=== PATIENT | female | born 1935 | race Caucasian/White ===

== ENCOUNTER 2019-05-16 09:21 | Inpatient (IN) ==
[2019-05-16] MEDS ORDERED: ONDANSETRON INJ 2 MG/ML 2 ML VIAL IV STA (10:03)
[2019-05-16] MEDS ORDERED: HYDROmorphone INJ 0.5 MG/0.5 ML SYR IV STA (10:04)
[2019-05-16] MEDS ORDERED: methylPREDNISolone 125 MG/2 ML VIAL IV STA (10:05)
[2019-05-16] MEDS ORDERED: MoRPHine SULFATE 2 MG/ML CARP IV STA ×2 (10:21→12:47)
[2019-05-16 10:29] LABS: Basophils # (auto) 0.01 K/uL (0-0.2); Basophils % (auto) 0.1 %; Hematocrit (blood only) 47.1 % (37-47); Hemoglobin 15.8 g/dL (12.0-16.0); Immature Granulocytes # (auto) 0.07 K/uL (0.00-0.02); Immature Granulocytes % (auto) 0.5 %; Lymphocytes # (auto) 2.28 K/uL (1.2-3.4); Lymphocytes % (auto) 17.4 %; Mean Corpuscular Hemoglobin 30.3 pg (25-34); Mean Corpuscular Hgb Conc 33.5 g/dL (32-36); Mean Corpuscular Volume 90.2 fL (80-100); Mean Platelet Volume 8.5 fL (7.4-10.4); Monocytes # (auto) 0.73 K/uL (0.11-0.59); Monocytes % (auto) 5.6 %; Neutrophils # (auto) 10.05 K/uL (1.4-6.5); Neutrophils % (auto) 76.4 %; Platelet Count 179 K/uL (130-400); RDW Coefficient of Variation 15.1 % (11.5-14.5); RDW Standard Deviation 50.3 fL (36.4-46.3); Red Blood Count 5.22 M/uL (4.2-5.4); White Blood Count 13.14 K/uL (4.8-10.8)
[2019-05-16 10:48] LABS: Albumin Level 4.3 gm/dl (3.4-5.0); Calcium 9.3 mg/dl (8.5-10.1); Creatinine Clr Calc Pharmacy 45.2 ml/min; Est GFR (African American) 66.7; Est GFR (Non-African American) 57.5; Potassium 3.5 mmol/L (3.5-5.1)
[2019-05-16 10:51] LABS: Albumin Globulin Ratio 1.2 (0.9-2); Bilirubin,Total 0.8 mg/dl (0.2-1); Globulin 3.6 gm/dl (2.5-4.0); Total Protein 7.9 gm/dl (6.4-8.2)
--- NOTE | 2019-05-16 11:17 | XRay Report ---
XR lumbar spine min 4V routine HISTORY: 83 years-old Female Right lumbar radiculopathy acute low back pain without reported trauma COMPARISON: Fluoroscopic images of the lumbar spine 11/23/2014 TECHNIQUE: 5 views of the lumbar spine FINDINGS: Cholecystectomy. Mild fecal retention. Demineralized appearance of the bones. 5 nonrib-bearing lumbar type vertebral segments are present. Grade 1 anterolisthesis L4 on L5, likely secondary to long-austyn ding facet arthrosis. Moderate multilevel disc space narrowing and spondylitic spurring with severe m ultilevel facet arthrosis. No acute fracture identified. Vertebral body heights appear well-maintaine d. Calcified plaque of the abdominal aorta. Severe left and moderate right hip osteoarthritis. IMPRESSION: 1. Degenerative changes as above without acute fracture. 2. Grade 1 anterolisthesis L4 on L5, likely secondary to long-standing facet arthrosis. ACT 112: Negative or not required by law. The above report was generated using voice recognition software. It may contain grammatical, syntax o r spelling errors. Electronically signed by: Parvez Clemente M.D. 05/16/2019 11:16 AM
[2019-05-16] MEDS ORDERED: DEXAMETHASONE SOD INJ 4 MG/ML VIAL IV ONE (13:58)
--- NOTE | 2019-05-16 13:59 | History & Physical Report ---
Date of Service May 16, 2019 Assessment & Plan (1) Right lumbar radiculopathy: -Admit to [facility] -Patient presenting with intractable right lumbar back pain with radiation into the right hip/leg -History of ongoing, chronic back pain for the past several years. Had injection in 2014 that caused temporary lower extremity paralysis and urinary incontinence. Has been managed with courses of prednisone since that time. -Was placed on prednisone on 05/04 without any improvement in pain -Lumbar spine MRI 02/2019: Grade 1 anterolisthesis at the L4-5 level due to facet degeneration with disc space narrowing. At this level there is lateral recess narrowing and foraminal narrowing on the right. Disc protrusions are seen also at L3-4 and L2-3. -Received Solu-Medrol 125 mg IV in the ED, further steroids as per spine orthopedics -Repeat lumbar spine MRI -PT/OT, pain control -Spine Ortho consult (2) Hypertension: -BP controlled, continue losartan (3) History of TIA (transient ischemic attack): -Remote history of TIA -will hold Plavix in preparation for any possible invasive procedure -Continue statin (4) GERD (gastroesophageal reflux disease): -Continue PPI (5) DVT prophylaxis: -SQ Lovenox History of Present Illness Chief Complaint: Intractable back pain Primary Care Provider: Sancho Webster MD 83-year-old female who presents the ED for evaluation of intractable back pain. Patient reports ongoing chronic back pain for the past several years. Have been managed with injections in the past, most recently being in 2014 however postprocedure, patient had complication of lower extremity paralysis and incontinence that did eventually resolve. Since then, patient's pain has been managed with prednisone tapers. She was on a course of prednisone in February and reports improvement of the pain. About 2 weeks ago, patient developed increasing right-sided low back pain with radiation into the right hip down to the leg. She was placed on prednisone on 05/04 and has had no improvement. Patient reports difficulty walking. She regards the pain as a burning sensation. Denies any loss of bowel or bladder function. No fevers or chills. Patient denies chest pain shortness of breath. No lightheadedness, dizziness, diaphoresis, syncopal events. She denies any urinary symptoms. In the ED, lumbar spine x-ray shows degenerative changes without acute fracture and grade 1 anterolisthesis L4 on L5, likely secondary to long-standing facet arthrosis. Patient was given IV Dilaudid, IV Solu-Medrol, 2 doses of IV morphine, IV Zofran. Allergies Allergy/AdvReac Type Severity Reaction Status Date / Time aspirin Allergy Unknown HIVES Verified 05/16/19 11:37 Cipro Allergy Unknown NUMBNESS Verified 11/23/14 10:01 INTENSIFIED IN BOTH FEET ciprofloxacin Allergy Unknown NUMBNESS Verified 05/16/19 11:37 INTENSIFIED IN BOTH FEET fentanyl Allergy Unknown SEE PEOPLE Verified 05/16/19 11:37 AND HEAR VOICES acetaminophen [From Percocet] AdvReac Severe Nausea Unverified 05/16/19 11:37 codeine AdvReac Severe Nausea Unverified 05/16/19 11:37 hydromorphone [From Dilaudid] AdvReac Severe Nausea Unverified 05/16/19 11:37 oxycodone [From Percocet] AdvReac Severe Nausea Unverified 05/16/19 11:37 Ethanol Allergy Unknown SEE PEOPLE Uncoded 05/16/19 11:37 AND HEAR VOICES MONOSTAT Allergy Unknown CRAMPS Uncoded 05/16/19 11:37 PROSTIGIMIN Allergy Unknown TONGUE Uncoded 05/16/19 11:37 SWELLS SOY BEAVER Allergy Unknown MESSED UP Uncoded 05/16/19 11:37 HEAD Home Medications Home Medications Medication Instructions Recorded Confirmed Type amitriptyline 25 mg PO HS 05/16/19 05/16/19 History atorvastatin 10 mg PO Q2D@2100 05/16/19 05/16/19 History clopidogrel 75 mg PO QAM 05/16/19 05/16/19 History fluticasone propionate 2 spray INTRANASAL HS 05/16/19 05/16/19 History gabapentin 200 mg PO QAM 05/16/19 05/16/19 History gabapentin 300 mg PO HS 05/16/19 05/16/19 History hydrochlorothiazide 12.5 mg PO QAM 05/16/19 05/16/19 History levothyroxine 137 mcg PO QAM 05/16/19 05/16/19 History lorazepam 0.5 mg PO DAILY PRN 05/16/19 05/16/19 History losartan 50 mg PO QAM 05/16/19 05/16/19 History pantoprazole 20 mg PO QAM 05/16/19 05/16/19 History prednisone 10 mg PO UD 05/16/19 05/16/19 History Past Med/Surg History Medical History Chronic back pain GERD (gastroesophageal reflux disease) History of ankle fracture History of [place] thyroiditis History of TIA (transient ischemic attack) Hyperlipidemia Hypertension Left bundle branch block Osteoarthritis Peripheral neuropathy Postoperative hypothyroidism Rectocele Surgical History H/O partial mastectomy H/O thyroidectomy H/O tubal ligation History of appendectomy History of bilateral knee replacement History of carpal tunnel surgery History of cataract surgery History of cholecystectomy History of total abdominal hysterectomy Family History Sister Breast cancer Mother Heart disease Social History Preferred Language: Greenlandic Communication Ability: Effective Spool Salvager Required: No Beliefs That Will Affect Care: None Current Living Situation: Spouse Other Information That Helps Us Care for You: No Feels Safe at Home: Yes Safety Concerns: Feels Safe At This Time Smoking Status: Never smoker Do You Dip or Chew Tobacco: No ; Second Hand Exposure: No ; Tobacco Cessation Education Requested by Patient: No Hx Alcohol Use: No Hx Substance Use: No Review of Systems Review of Systems: ROS per HPI, all other systems reviewed and negative Physical Exam Constitutional: WD/WN, vitals as above Eyes: PERRL, conjunctivae normal, anicteric sclerae ENMT: external ear and nose normal, oropharynx normal Respiratory: normal respiratory effort, lungs clear to auscultation Cardiovascular: Rate/Rhythm: regular rate and regular rhythm Vessels: normal peripheral pulses Extremities: no edema Gastrointestinal (Abdomen): normal bowel sounds, soft, nontender, no hepatosplenomegaly Musculoskeletal: no cyanosis or clubbing, extremities motor strength 5/5 Right-sided lumbar back and right hip pain with right leg abduction Skin: no rashes, warm and dry Neurologic: PERRL, EOMI, accommodation nl, no face palsy, no dysarthria Psychiatric: A+Ox3, euthymic affect Results & Data Vital Signs (Past 12 Hours) Vital Signs Temp Pulse Pulse Resp BP BP Pulse Ox 03/02/20 13:00 89 20 150/72 H 98 05/16/19 11:22 73 20 150/73 H 95 05/16/19 09:30 36.7 C 90 20 161/72 H 99 Laboratory Results Short CBC 05/16/19 Range/Units 10:14 WBC 13.14 H (4.8-10.8) K/uL Hgb 15.8 (12.0-16.0) g/dL Hct 47.1 H (37-47) % Plt Count 179 (130-400) K/uL BMP 05/16/19 10:14 Sodium 139 Potassium 3.5 Chloride 101 Carbon Dioxide 32 BUN 20 H Creatinine 0.91 Glucose 125 H Calcium 9.3 Liver Function 05/16/19 Range/Units 10:14 Total Bilirubin 0.8 (0.2-1) mg/dl AST 14 L (15-37) U/L ALT 23 (12-78) U/L Alkaline Phosphatase 88 (45-117) U/L Albumin 4.3 (3.4-5.0) gm/dl Diagnostic Findings LUMBAR SPINE X-RAY IMPRESSION: 1. Degenerative changes as above without acute fracture. 2. Grade 1 anterolisthesis L4 on L5, likely secondary to long-standing facet arthrosis. Code Status & VTE Plan Code Status Patient is a full code as per my discussion with her. VTE Prophylaxis Plan VTE Prophylaxis will be ordered: Yes Supervising Physician Co-Signing Physician Notes Attending addendum; Patient is seen and examined in medical floor She has been complaining of severe low back pain on the right side and the pain goes down to right leg Initial improvement with a course of steroid in February but this time it has not been helping Pain is worse with every movement Denies any problem with bowel and/or bladder and denies any significant weakness involving the right lower extremity On examination Lying in bed comfortably Hemodynamically stable Chest-clear to auscultate bilaterally Heart-S1-S2, regular Abdomen-benign Extremities-no edema No significant localized tenderness noted on examination of the lower spine pecan gatherer-minimal sensory impairment involving the right lower extremity in the lower leg No significant decrease in power Admission labs and imaging studies reviewed Received 1 dose of Solu-Medrol in the emergency room We will get repeat MRI of the lumbar spine Back surgery evaluation in the hospital Agree with assessment and plan as outlined above by Carmen Jarrett
--- NOTE | 2019-05-16 14:14 | Emergency Department Note ---
Entered by Lisa Benjamin acting as a scribe for Mariia Mack MD History of Present Illness General Chief complaint: Hip Pain Stated complaint: HIP PAIN DOWN TO ANKLE Source: patient History of Present Illness Onset (ago): week(s) 1 Location: back Radiation: other (right hip, right leg) Severity: severe and similar to prior episodes Pain Consistency: + other (worsening) Maximum Pain Intensity: 5 Quality: + other (back pain) Relieved By: + medication (Relieved by Prednisone. Not relieved by Tylenol.) Exacerbated By: + movement Associated symptoms: + other (Positive back pain, right hip and right leg pain. Negative truama, falls, urinary incontinence.) The patient is an 83 year old female presenting to the Emergency Department complaining of worsening back pain starting 1 week ago. The patient reports that she has severe lower back pain that is radiating down to her right hip and right leg. She states that standing up and walking around worsens her pain. She explains that she has experienced these symptoms before as she follows with [facility]. She notes that she has horrible arthritis in her joints. She adds that she normally received Prednisone when she has this pain and that it improves her pain. The patient reports that she has had pain shots in her back for her chronic back pain before that made her incontinent so she hasnt had them since. She states that she had an MRI of her back on 03/04/19 at [facility]. She explains that she recently finished a round of prednisone in the end of April and has been taking Tylenol ever since. She notes that Tylenol is not improving her back pain. 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 The patient denies recent trauma, falls, urinary incontinence, recent heavy lifting and history of hip surgery. Home Medications Home Medications Medication Instructions Recorded Confirmed Type amitriptyline 25 mg PO HS 05/16/19 05/16/19 History atorvastatin 10 mg PO Q2D@2100 05/16/19 05/16/19 History clopidogrel 75 mg PO QAM 05/16/19 05/16/19 History fluticasone propionate 2 spray INTRANASAL HS 05/16/19 05/16/19 History gabapentin 200 mg PO QAM 05/16/19 05/16/19 History gabapentin 300 mg PO HS 05/16/19 05/16/19 History hydrochlorothiazide 12.5 mg PO QAM 05/16/19 05/16/19 History levothyroxine 137 mcg PO QAM 05/16/19 05/16/19 History lorazepam 0.5 mg PO DAILY PRN 05/16/19 05/16/19 History losartan 50 mg PO QAM 05/16/19 05/16/19 History pantoprazole 20 mg PO QAM 05/16/19 05/16/19 History prednisone 10 mg PO UD 05/16/19 05/16/19 History Allergies Allergy/AdvReac Type Severity Reaction Status Date / Time aspirin Allergy Unknown HIVES Verified 05/16/19 11:37 Cipro Allergy Unknown NUMBNESS Verified 11/23/14 10:01 INTENSIFIED IN BOTH FEET ciprofloxacin Allergy Unknown NUMBNESS Verified 05/16/19 11:37 INTENSIFIED IN BOTH FEET fentanyl Allergy Unknown SEE PEOPLE Verified 05/16/19 11:37 AND HEAR VOICES codeine AdvReac Severe Nausea Unverified 05/16/19 11:37 hydromorphone [From Dilaudid] AdvReac Severe Nausea Unverified 05/16/19 11:37 oxycodone [From Percocet] AdvReac Severe Nausea Unverified 05/16/19 11:37 Ethanol Allergy Unknown SEE PEOPLE Uncoded 05/16/19 11:37 AND HEAR VOICES MONOSTAT Allergy Unknown CRAMPS Uncoded 05/16/19 11:37 PROSTIGIMIN Allergy Unknown TONGUE Uncoded 05/16/19 11:37 SWELLS Past Med/Surg History Medical History (Updated 05/18/19 @ 22:24 by Alfred Heck MD) Chronic back pain GERD (gastroesophageal reflux disease) History of ankle fracture History of [place] thyroiditis History of TIA (transient ischemic attack) Hyperlipidemia Hypertension Hypothyroidism Left bundle branch block Osteoarthritis Peripheral neuropathy Postoperative hypothyroidism Rectocele Surgical History H/O partial mastectomy H/O thyroidectomy H/O tubal ligation History of appendectomy History of bilateral knee replacement History of carpal tunnel surgery History of cataract surgery History of cholecystectomy History of total abdominal hysterectomy Family History Sister Breast cancer Mother Heart disease Social History Preferred Language: Lao Communication Ability: Effective 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 and A total of 10 systems reviewed and were otherwise negative Physical Exam Vital Signs Vital Signs - 24 hr 05/16/19 09:30 05/16/19 11:22 Temperature 36.7 C Temperature Source Oral Pulse Rate 90 Pulse Rate [Finger] 73 Pulse Rhythm Regular Pulse Rhythm [Finger] Regular Pulse Strength Normal Pulse Strength [Finger] Normal Respiratory Rate 20 20 Respiratory Effort / Characteristics Non-Labored Spontaneous Non-Labored Spontaneous Respiratory Depth Normal Normal Respiratory Pattern Regular Blood Pressure 161/72 H Blood Pressure [Left Arm] 150/73 H Blood Pressure Mean 101 Blood Pressure Mean [Left Arm] 98 Blood Pressure Position Sitting Blood Pressure Position [Left Arm] Lying Pulse Oximetry 99 95 Oxygen Delivery Method Room Air Room Air Sepsis Recent Fever Within 48 Hours No Sepsis Action Taken by Nursing No Action Required Vital signs reviewed. General: Well-appearing 83 year old female, in no significant distress. HEENT: No scleral icterus, PERRLA, neck supple. Atraumatic. Cardiovascular: Regular rate and rhythm, no extra sounds. Pulmonary: Clear to auscultation bilaterally, normal work of breathing. Abdomen: Soft, nontender, nondistended, positive bowel sounds. Musculoskeletal: Negative straight leg raise bilaterally. Significant pain with rotation and lifting legs to bed. Pain increases with weight bearing. Atraumatic, no peripheral edema. Neurologic: Patient awake alert and oriented x 3, full strength bilateral lower extremities. Skin: Warm, dry, no rash Course Course 0958: The patient was evaluated in room B5, and a complete history and physical examination were performed. 1113: I reevaluated the patient at this time. 1236: I discussed the patient's case with Carmen TRACY. [facility]. 1241: I updated the patient at this time. Administered Medications Acetaminophen (Tylenol) 650 mg PO Q6H MEHUL Stop: 06/15/19 13:57 Last Admin: 05/19/19 13:45 Dose: 650 mg Documented by: [id number] Admin: 05/19/19 09:05 Dose: 650 mg Documented by: [id number] Admin: 05/19/19 02:30 Dose: 650 mg Documented by: [id number] Admin: 05/18/19 21:26 Dose: 650 mg Documented by: [id number] Admin: 05/18/19 13:16 Dose: Not Given Documented by: [id number] Admin: 05/18/19 10:04 Dose: 650 mg Documented by: [id number] Cosigned by: [id number] Admin: 05/18/19 02:25 Dose: 650 mg Documented by: [id number] Admin: 05/17/19 20:20 Dose: 650 mg Documented by: [id number] Admin: 05/17/19 14:35 Dose: 650 mg Documented by: [id number] Admin: 05/17/19 09:17 Dose: 650 mg Documented by: [id number] Admin: 05/17/19 03:33 Dose: 650 mg Documented by: [id number] Admin: 05/16/19 21:21 Dose: 650 mg Documented by: [id number] Admin: 05/16/19 14:21 Dose: 650 mg Documented by: [id number] Amitriptyline HCl (Elavil) 25 mg PO HS MEHUL Stop: 06/15/19 20:59 Last Admin: 05/18/19 21:23 Dose: 25 mg Documented by: [id number] Admin: 05/17/19 20:20 Dose: 25 mg Documented by: [id number] Admin: 05/16/19 20:47 Dose: 25 mg Documented by: [id number] Atorvastatin Calcium (Lipitor) 10 mg PO Q2D@2100 MEHUL Stop: 06/15/19 20:59 Last Admin: 05/18/19 21:22 Dose: 10 mg Documented by: [id number] Admin: 05/16/19 20:48 Dose: 10 mg Documented by: [id number] Docusate Sodium (Colace) 100 mg PO BID MEHUL Stop: 06/15/19 20:59 Last Admin: 05/19/19 09:06 Dose: 100 mg Documented by: [id number] Admin: 05/18/19 21:22 Dose: 100 mg Documented by: [id number] Admin: 05/18/19 10:09 Dose: 100 mg Documented by: [id number] Cosigned by: [id number] Admin: 05/17/19 20:20 Dose: 100 mg Documented by: [id number] Admin: 05/17/19 09:13 Dose: 100 mg Documented by: [id number] Admin: 05/16/19 20:48 Dose: 100 mg Documented by: [id number] Gabapentin (Neurontin) 300 mg PO HS MEHUL Stop: 06/15/19 20:59 Last Admin: 05/18/19 21:23 Dose: 300 mg Documented by: [id number] Admin: 05/17/19 20:20 Dose: 300 mg Documented by: [id number] Admin: 05/16/19 20:47 Dose: 300 mg Documented by: [id number] Gabap[facility] (Neurontin) [facility] [place] Stop: 06/16/19 08:59 Last Admin: 05/19/19 09:06 Dose: 200 mg Documented by: [id number] Admin: 05/18/19 10:04 Dose: 200 mg Documented by: [id number] Cosigned by: [id number] Admin: 05/17/19 09:13 Dose: 200 mg Documented by: [id number] Gadobutrol (Gadavist 65ml) 7 ml IV ONCE PRN PRN Reason: Interaction Checking Stop: 05/20/19 17:08 Last Admin: 05/16/19 17:10 Dose: 7 ml Documented by: [id number] Hydrochlorothiazide (Hctz) 12.5 mg [facility] [place] Stop: 06/16/19 08:59 Last Admin: 05/19/19 11:22 Dose: 12.5 mg Documented by: [id number] Admin: 05/17/19 09:12 Dose: 12.5 mg Documented by: [id number] Levothyroxine Sodium (Levothyroxine Sodium) 137 mcg PO DAILYBB [facility] Stop: 06/16/19 06:29 Last Admin: 05/19/19 06:02 Dose: 137 mcg Documented by: [id number] Admin: 05/18/19 06:10 Dose: 137 mcg Documented by: [id number] Admin: 05/17/19 06:09 Dose: 137 mcg Documented by: [id number] Lorazepam (Ativan) 0.5 mg PO HS PRN PRN Reason: Sleep Stop: 06/16/19 20:30 Last Admin: 05/17/19 21:53 Dose: 0.5 mg Documented by: [id number] Losartan Potassium (Cozaar) 50 mg PO QAM [facility] Stop: 06/16/19 08:59 Last Admin: 05/19/19 09:06 Dose: 50 mg Documented by: [id number] Admin: 05/18/19 10:08 Dose: 50 mg Documented by: [id number] Cosigned by: [id number] Admin: 05/17/19 09:12 Dose: 50 mg Documented by: [id number] Ondansetron HCl (Zofran) 4 mg IV Q6H PRN PRN Reason: Nausea Stop: 06/17/19 08:07 Last Admin: 05/18/19 22:27 Dose: 4 mg Documented by: [id number] Admin: 05/18/19 08:26 Dose: 4 mg Documented by: [id number] Cosigned by: [id number] Oxycodone HCl (Roxicodone Immediate Rel) 5 mg PO Q6H PRN PRN Reason: Pain Stop: 05/30/19 13:57 Last Admin: 05/18/19 02:25 Dose: 5 mg Documented by: [id number] Admin: 05/17/19 17:54 Dose: 5 mg Documented by: [id number] Admin: 05/17/19 11:48 Dose: 5 mg Documented by: [id number] Pantoprazole Sodium (Protonix) 40 mg PO [facility] Stop: 06/16/19 08:59 Last Admin: 05/19/19 09:06 Dose: 40 mg Documented by: [id number] Admin: 05/18/19 10:08 Dose: 40 mg Documented by: [id number] Cosigned by: [id number] Admin: 05/17/19 09:13 Dose: 40 mg Documented by: [id number] Polyethylene Glycol (Miralax Powder Packet) 17 gm PO DAILY MEHUL Stop: 06/15/19 14:14 Last Admin: 05/19/19 09:02 Dose: Not Given Documented by: [id number] Admin: 05/18/19 10:07 Dose: Not Given Documented by: [id number] Admin: 05/17/19 09:14 Dose: 8 gm Documented by: [id number] Admin: 05/16/19 14:21 Dose: 17 gm Documented by: [id number] Senna/Docusate Sodium (Senokot S) 2 tab PO HS [facility] Stop: 06/17/19 20:59 Last Admin: 05/18/19 21:23 Dose: 2 tab Documented by: [id number] Tramadol HCl (Ultram) 50 - 100 mg PO Q4H PRN PRN Reason: Moderate-Severe Pain & Pre PT Stop: 06/17/19 19:36 Last Admin: 05/19/19 12:02 Dose: 50 mg Documented by: [id number] Discontinued Medications Bacitracin (Bacitracin) Confirm Administered Dose 50,000 units .ROUTE .STK-MED ONE Stop: 05/18/19 15:01 Last Admin: 05/18/19 17:02 Dose: 50,000 units Documented by: [id number] Bupivacaine HCl (Marcaine 0.5% Mpf) Confirm Administered Dose 30 ml .ROUTE .STK- MED ONE Stop: 05/18/19 15:01 Last Admin: 05/18/19 16:21 Dose: 20 ml Documented by: [id number] Dexamethasone (Decadron) 4 mg IV ONE ONE Stop: 05/16/19 13:59 Last Admin: 05/16/19 14:25 Dose: Not Given Documented by: [id number] Enoxaparin Sodium (Lovenox) 40 mg SQ Q24H MEHUL Stop: 06/15/19 14:59 Last Admin: 05/17/19 14:51 Dose: Not Given Documented by: [id number] Admin: 05/16/19 15:37 Dose: Not Given Documented by: [id number] Epinephrine HCl (Epinephrine) Confirm Administered Dose 1 mg .ROUTE .STK-MED ONE Stop: 05/18/19 15:00 Last Admin: 05/18/19 16:21 Dose: 0.15 mg Documented by: [id number] Heparin Sodium (Porcine) (Heparin Sodium (Porcine)) 5,000 units SQ ONE ONE Stop: 05/17/19 22:01 Last Admin: 05/17/19 21:53 Dose: 5,000 units Documented by: [id number] Cosigned by: [id number] Hydromorphone HCl (Dilaudid) 0.25 mg IV NOW STA Stop: 05/16/19 10:05 Last Admin: 05/16/19 10:42 Dose: Not Given Documented by: [id number] Cefazolin Sodium (Ancef 2000mg) 2,000 mg in 15 mls @ 3.75 mls/min IV PREOP ONE Stop: 05/18/19 15:57 Last Admin: 05/18/19 15:50 Dose: 3.75 mls/min Documented by: [id number] Sodium Chloride (Nss 1000ml) 1,000 mls @ 100 mls/hr IV .Q10H MEHUL Stop: 06/17/19 19:36 Last Infusion: 05/19/19 06:11 Dose: 0 mls/hr Documented by: [id number] Admin: 05/19/19 06:03 Dose: Not Given Documented by: [id number] Admin: 05/18/19 21:26 Dose: 100 mls/hr Documented by: [id number] Cefazolin Sodium (Ancef 2000mg) 2,000 mg in 15 mls @ 3.75 mls/min IV Q8H MEHUL; Protocol Stop: 05/19/19 08:03 Last Admin: 05/19/19 09:08 Dose: 3.75 mls/min Documented by: [id number] Admin: 05/19/19 00:33 Dose: 3.75 mls/min Documented by: [id number] Labetalol HCl (Normodyne) 5 mg IV Q5M PRN PRN Reason: PACU Use-SBP>160 or DBP>100 Stop: 05/18/19 21:04 Last Admin: 05/18/19 18:50 Dose: 5 mg Documented by: [id number] Cosigned by: [id number] Lorazepam (Ativan) 0.25 mg PO NOW STA Stop: 05/17/19 20:13 Last Admin: 05/17/19 21:09 Dose: Not Given Documented by: [id number] Methylprednisolone (Solumedrol) 125 mg IV NOW STA Stop: 05/16/19 10:06 Last Admin: 05/16/19 10:34 Dose: 125 mg Documented by: [id number] Miscellaneous (Floseal Hemostatic Matrix 10ml) 10 ml TOP ONCE ONE Stop: 05/18/19 17:01 Last Admin: 05/18/19 17:37 Dose: 5 ml Documented by: [id number] Morphine Sulfate (Morphine Sulfate) 2 mg IV NOW STA Stop: 05/16/19 10:22 Last Admin: 05/16/19 10:34 Dose: 2 mg Documented by: [id number] Morphine Sulfate (Morphine Sulfate) 2 mg IV NOW STA Stop: 05/16/19 12:48 Last Admin: 05/16/19 13:27 Dose: 2 mg Documented by: [id number] Morphine Sulfate (Morphine Sulfate) 4 mg IV Q4H PRN PRN Reason: severe pain Stop: 05/30/19 13:57 Last Admin: 05/18/19 06:10 Dose: 4 mg Documented by: [id number] Admin: 05/17/19 23:08 Dose: 4 mg Documented by: [id number] Admin: 05/16/19 20:48 Dose: 4 mg Documented by: [id number] Ondansetron HCl (Zofran) 4 mg IV NOW STA Stop: 05/16/19 10:04 Last Admin: 05/16/19 10:34 Dose: 4 mg Documented by: [id number] Perflutren Lipid Microsphere (Definity) 2 ml IV ONCE ONE Stop: 05/18/19 07:46 Last Admin: 05/18/19 07:46 Dose: 2 ml Documented by: [id number] Polyethylene Glycol (Miralax Powder Packet) 17 gm PO Q6 MEHUL Stop: 06/18/19 05:59 Last Admin: 05/19/19 11:28 Dose: 17 gm Documented by: [id number] Admin: 05/19/19 06:03 Dose: 17 gm Documented by: [id number] Medical Decision Making Differential Diagnosis Etiologies such as musculoskeletal, disc herniation, fracture, aortic disease, metastatic disease, cord compression, discitis, infection, renal colic, gastrointestinal, acute exacerbation of chronic back pain, sciatica, cauda equina, as well as others were entertained. Medical Records Attestation: I reviewed the patient's medical records. Home Medications Current Medication List: was personally reviewed by me Laboratory Data Attestation: I reviewed the patient's lab results. Result diagrams: 05/19/19 07:26 05/19/19 07:26 Lab Results 05/16/19 05/16/19 Range/Units 10:14 10:14 WBC 13.14 H (4.8-10.8) K/uL RBC 5.22 (4.2-5.4) M/uL Hgb 15.8 (12.0-16.0) g/dL Hct 47.1 H (37-47) % MCV 90.2 (80-100) fL MCH 30.3 (25-34) pg MCHC 33.5 (32-36) g/dL RDW Std Deviation 50.3 H (36.4-46.3) fL RDW Coeff of Paulo 15.1 H (11.5-14.5) % Plt Count 179 (130-400) K/uL MPV 8.5 (7.4-10.4) fL Immature Gran % (Auto) 0.5 % Neut % (Auto) 76.4 % Lymph % (Auto) 17.4 % Chaves % (Auto) 5.6 % Eos % (Auto) 0.0 % Baso % (Auto) 0.1 % Immature Gran # (Auto) 0.07 H (0.00-0.02) K/uL Neut # (Auto) 10.05 H (1.4-6.5) K/uL Lymph # (Auto) 2.28 (1.2-3.4) K/uL Chaves # (Auto) 0.73 H (0.11-0.59) K/uL Eos # (Auto) 0.00 (0-0.5) K/uL Baso # (Auto) 0.01 (0-0.2) K/uL Sodium 139 (136-145) mmol/L Potassium 3.5 (3.5-5.1) mmol/L Chloride 101 (98-107) mmol/L Carbon Dioxide 32 (21-32) mmol/L Anion Gap 6.0 (3-11) BUN 20 H (7-18) mg/dl Creatinine 0.91 (0.6-1.2) mg/dl Est Cr Clr Drug Dosing 45.2 ml/min Est GFR ( Amer) 66.7 Est GFR (Non-Af Amer) 57.5 BUN/Creatinine Ratio 22.0 H (10-20) Glucose 125 H (70-99) mg/dl Calcium 9.3 (8.5-10.1) mg/dl Total Bilirubin 0.8 (0.2-1) mg/dl AST 14 L (15-37) U/L ALT 23 (12-78) U/L Alkaline Phosphatase 88 (45-117) U/L Total Protein 7.9 (6.4-8.2) gm/dl Albumin 4.3 (3.4-5.0) gm/dl Globulin 3.6 (2.5-4.0) gm/dl Albumin/Globulin Ratio 1.2 (0.9-2) Imaging Data Radiologist's Impression: Radiology results as stated below per my review and the radiologist's interpretation: XR lumbar spine min 4V routine HISTORY: 83 years-old Female Right lumbar radiculopathy acute low back pain without reported trauma COMPARISON: Fluoroscopic images of the lumbar spine 11/23/2014 TECHNIQUE: 5 views of the lumbar spine FINDINGS: Cholecystectomy. Mild fecal retention. Demineralized appearance of the bones. 5 nonrib-bearing lumbar type vertebral segments are present. Grade 1 anterolisthesis L4 on L5, likely secondary to long-standing facet arthrosis. Moderate multilevel disc space narrowing and spondylitic spurring with severe multilevel facet arthrosis. No acute fracture identified. Vertebral body heights appear well-maintained. Calcified plaque of the abdominal aorta. Severe left and moderate right hip osteoarthritis. IMPRESSION: 1. Degenerative changes as above without acute fracture. 2. Grade 1 anterolisthesis L4 on L5, likely secondary to long-standing facet arthrosis. ACT 112: Negative or not required by law. The above report was generated using voice recognition software. It may contain grammatical, syntax or spelling errors. Electronically signed by: Parvez Clemente M.D. 05/16/2019 11:16 AM Blood Pressure Blood Pressure Findings: Elevated blood pressure Blood Pressure Disposition: further management by hospitalist MDM Narrative This pt was evaluated and appeared to be in no distress. IV access was obtained and lab work was drawn. Pt was medicated with IV morphine and zofran, given IV solumedral. Pt is noted to have a leukocytosis likely r/t recent steroid therapy. XR were performed of lumbar spine and reveal degenerative changes and grade 1 anterolisthesis L4 on L5. Pt required additional morphine IV for pain control. She is unable to ambulate without significant assistance. Pt will be evaluated by the hospitalist service for further management. Pt and daughter were made aware of the plan and agreed. Impression & Plan Right lumbar radiculopathy, Intractable back pain Discharge Plan Visit Data *Final* Discharge Date/Time: 05/16/19 13:21 Chief Complaint: Hip Pain Stated Complaint: HIP PAIN DOWN TO ANKLE ED Provider: Mariia Mack Discharge Problem: Right lumbar radiculopathy, Intractable back pain Patient Disposition: Admitted As Inpatient Discharge Instructions Interventions: ED Discharge Assessment Last Done: 05/16/19 13:21 The scribe's documentation has been prepared under my direction and personally reviewed by me in its entirety. I confirm that the note above accurately reflects all work, treatment, procedures, and medical decision making performed by me.
[2019-05-16] MEDS: ACETAMINOPHEN 325 MG TAB PO SCH ×2 (14:21→21:21)
[2019-05-16] MEDS: POLYETHYLENE (MIRALAX) 17 GM PACK PO SCH (14:21)
[2019-05-16] MEDS: ENOXAPARIN INJ 40 MG/0.4 ML SYR SQ SCH (15:37)
[2019-05-16] MEDS ORDERED: GADOBUTROL 65ML VIAL IV PRN (17:09)
--- NOTE | 2019-05-16 17:44 | Magnetic Resonance Report ---
LUMBAR SPINE MRI WITH AND WITHOUT CONTRAST HISTORY: intractable back pain TECHNIQUE: Multiplanar multisequence MRI of the lumbar spine was performed both before and after the intravenous administration of contrast. COMPARISON: Lumbar spine radiograph 05/16/2019. FINDINGS: For the purpose of the report the L5-S1 disc space will be located on axial image 27 of 30. 4 mm of anterolisthesis of L4 on L5. No fractures within the lumbar spine. Moderate to severe facet d egenerative changes most pronounced at the L4-L5 level. Mild enhancement surrounding the L4-L5 and L5 facets is likely due to to the long-standing degenerative change. The conus terminates at the L1-2 d isc space level. There is moderate disc space narrowing at L2-L3 and L4-L5. There is mild disc space narrowing at L3-L4. No fractures within the lumbar spine. There is a 1.9 cm right renal cyst. L1-L2: No significant central canal or neural foraminal narrowing. L2-L3: Broad-based posterior disc bulge with ligamentum and facet hypertrophy resulting in moderate c entral canal and mild bilateral neural foraminal narrowing. L3-L4: Broad-based posterior disc bulge with a small focal central disc protrusion. In conjunction wi th ligamentum and facet hypertrophy this results in severe central canal and mild to moderate bilater al neural foraminal narrowing. L4-L5: Broad-based posterior disc bulge with ligamentum and facet hypertrophy resulting in moderate c entral canal and moderate left neural foraminal narrowing. There is severe right neural foraminal kevin rowing with compression of the exiting right L4 nerve root at this level. L5-S1: Small broad-based posterior disc bulge without significant central canal or neural foraminal n arrowing. IMPRESSION: 1. Multilevel lumbar spondylosis as described above most pronounced at the L2-L3 and L3-L4 levels. 2. Grade 1 anterolisthesis of L4 on L5. In conjunction with the broad-based posterior disc bulge this results in moderate left and severe right neural foraminal narrowing. There appears to be mild compr ession of the exiting right L4 nerve root at this level due to the neural foraminal narrowing. 3. Additional degenerative changes as described above. ACT 112: Negative or not required by law. Electronically signed by: Yared Sweet M.D. 05/16/2019 5:43 PM
[2019-05-16] MEDS: GABAPENTIN 300 MG CAP PO SCH (20:47)
[2019-05-16] MEDS: AMITRIPTYLINE HCL 25 MG TAB PO SCH (20:47)
[2019-05-16] MEDS: ATORVASTATIN 10 MG TAB PO SCH (20:48)
[2019-05-16] MEDS: MoRPHine SULFATE 4 MG/ML 1 ML CARP\\VIAL IV PRN (20:48)
[2019-05-16] MEDS: DOCUSATE SODIUM 100 MG CAP PO SCH (20:48)
[2019-05-17] MEDS: ACETAMINOPHEN 325 MG TAB PO SCH ×4 (03:33→20:20)
[2019-05-17] MEDS: LEVOTHYROXINE SODIUM 137 MCG TABLET PO SCH (06:09)
[2019-05-17] MEDS ORDERED: CLOPIDOGREL BISULFATE 75 MG TAB PO SCH (09:00)
[2019-05-17] MEDS: LOSARTAN POTASSIUM 50 MG TAB PO SCH (09:12)
[2019-05-17] MEDS: hydroCHLOROthiazide 25 MG TAB PO SCH (09:12)
[2019-05-17] MEDS: PANTOprazole 40 MG TAB PO SCH (09:13)
[2019-05-17] MEDS: GABAPENTIN 100 MG CAP PO SCH (09:13)
[2019-05-17] MEDS: DOCUSATE SODIUM 100 MG CAP PO SCH ×2 (09:13→20:20)
[2019-05-17] MEDS: POLYETHYLENE (MIRALAX) 17 GM PACK PO SCH (09:14)
[2019-05-17 09:29] LABS: Albumin Level 3.9 gm/dl (3.4-5.0); BUN Creatinine Ratio 31.7 (10-20); Creatinine Clr Calc Pharmacy 38.8 ml/min; Est GFR (African American) 55.4; Est GFR (Non-African American) 47.8; Potassium 3.5 mmol/L (3.5-5.1)
[2019-05-17 09:32] LABS: Albumin Globulin Ratio 1.2 (0.9-2); Bilirubin,Total 0.7 mg/dl (0.2-1); Globulin 3.3 gm/dl (2.5-4.0); Total Protein 7.2 gm/dl (6.4-8.2)
[2019-05-17] MEDS: OXYCODONE HCL IR 5 MG TAB (IMMEDIATE RELEASE) PO PRN ×2 (11:48→17:54)
--- NOTE | 2019-05-17 13:49 | Orthopedic Consultation ---
Date of Consultation May 17, 2019 Assessment & Plan (1) Right lumbar radiculopathy: Had a long stress with this patient and her daughter reviewing her clinical presentation and imaging findings. Her MRI does demonstrate evidence of spinal listhesis L4-5 with acute disc herniation involving the right neural foramen with severe pressure on the exiting L4 nerve root on the right. She also has adjacent level stenosis L2-3 and L3-4 to a lesser degree. We discussed possible treatment options. She is quite miserable with her pain. She has had epidural injections in the past to no avail. Subsequently she could consider surgical invention. Would require a lumbar decompression and fusion at L4-5 to adequately stabilize the instability and safely decompress the exiting L4 nerve root requiring a facetectomy on the right. Risk benefits pros cons and alternatives were outlined in detail. Risks include but not limited to from anesthesia blindness stroke paralysis nerve damage blood loss current transfusion infection requiring reoperation benefits hopefully be marked improvement of radiculopathy and ability to ambulate. This time she was considering her options would notify us if and when she like to proceed. Present on Admission?: Yes History of Present Illness Reason for Consultation: Patient here with approximately 4 weeks of severe back and right leg pain. She denies any precipitating trauma fall or event. She does have a history of spinal stenosis and having undergone injections in the past without improvement. She has been on oral prednisone over the past several weeks without any improvement of her symptom complex. It does involve the right buttock posterior thigh extending below the knee into the foot. Is markedly exacerbated with walking. Attending Physician: Diann Dyer MD Allergies Allergy/AdvReac Type Severity Reaction Status Date / Time aspirin Allergy Unknown HIVES Verified 05/16/19 11:37 Cipro Allergy Unknown NUMBNESS Verified 11/23/14 10:01 INTENSIFIED IN BOTH FEET ciprofloxacin Allergy Unknown NUMBNESS Verified 05/16/19 11:37 INTENSIFIED IN BOTH FEET fentanyl Allergy Unknown SEE PEOPLE Verified 05/16/19 11:37 AND HEAR VOICES acetaminophen [From Percocet] AdvReac Severe Nausea Unverified 05/16/19 11:37 codeine AdvReac Severe Nausea Unverified 05/16/19 11:37 hydromorphone [From Dilaudid] AdvReac Severe Nausea Unverified 05/16/19 11:37 oxycodone [From Percocet] AdvReac Severe Nausea Unverified 05/16/19 11:37 Ethanol Allergy Unknown SEE PEOPLE Uncoded 05/16/19 11:37 AND HEAR VOICES MONOSTAT Allergy Unknown CRAMPS Uncoded 05/16/19 11:37 PROSTIGIMIN Allergy Unknown TONGUE Uncoded 05/16/19 11:37 SWELLS Home Medications Home Medications Medication Instructions Recorded Confirmed Type amitriptyline 25 mg PO HS 05/16/19 05/16/19 History atorvastatin 10 mg PO Q2D@2100 05/16/19 05/16/19 History clopidogrel 75 mg PO QAM 05/16/19 05/16/19 History fluticasone propionate 2 spray INTRANASAL HS 05/16/19 05/16/19 History gabapentin 200 mg PO QAM 05/16/19 05/16/19 History gabapentin 300 mg PO HS 05/16/19 05/16/19 History hydrochlorothiazide 12.5 mg PO QAM 05/16/19 05/16/19 History levothyroxine 137 mcg PO QAM 05/16/19 05/16/19 History lorazepam 0.5 mg PO DAILY PRN 05/16/19 05/16/19 History losartan 50 mg PO QAM 05/16/19 05/16/19 History pantoprazole 20 mg PO QAM 05/16/19 05/16/19 History prednisone 10 mg PO UD 05/16/19 05/16/19 History Patient History Medical History Chronic back pain GERD (gastroesophageal reflux disease) History of ankle fracture History of Chanell thyroiditis History of TIA (transient ischemic attack) Hyperlipidemia Hypertension Left bundle branch block Osteoarthritis Peripheral neuropathy Postoperative hypothyroidism Rectocele Surgical History H/O partial mastectomy H/O thyroidectomy H/O tubal ligation History of appendectomy History of bilateral knee replacement History of carpal tunnel surgery History of cataract surgery History of cholecystectomy History of total abdominal hysterectomy Family History Sister Breast cancer Mother Heart disease Social History Preferred Language: [place] Communication Ability: Effective International Specialist Required: No Beliefs That Will Affect Care: None marital status: Current Living Situation: Spouse Other Information That Helps Us Care for You: No Feels Safe at Home: Yes Safety Concerns: Feels Safe At This Time Smoking Status: Never smoker Do You Dip or Chew Tobacco: No ; Second Hand Exposure: No ; Tobacco Cessation Education Requested by Patient: No Hx Alcohol Use: No Hx Substance Use: No Physical Exam Physical Exam: He is comfortable lying supine. Her daughter is in the room with her. She exhibits positive tension signs with straight leg raising on the right negative on the left reasonable strength detailed testing plantar flexion dorsiflexion extensor pollicis longus bilaterally she has full sensation light touch and cold bilateral lower extremities. She is admitted for pain control and inability to take care of herself. The left lower extremity is been essent ially asymptomatic. She denies any change in bowel bladder function. Results & Data ([facility]) Vital Signs (Past 12 Hours) Vital Signs Temp Pulse Resp BP Pulse Ox 05/17/19 11:12 36.7 C 83 18 130/71 93 05/17/19 07:21 36.6 C 82 18 118/66 93
[2019-05-17] MEDS: ENOXAPARIN INJ 40 MG/0.4 ML SYR SQ SCH (14:51)
--- NOTE | 2019-05-17 19:33 | Hospitalist Progress Note ---
Date of Service May 17, 2019 Assessment & Plan (1) Right lumbar radiculopathy: Presented on admission with intractable right lumbar back pain with radiation into the right hip/leg Failed outpatient conservative management Lumbar MRI showed multilevel lumbar spondylosis most pronounced at the L2-L3 and L3-L4 levels. Grade 1 anterolisthesis of L4 on L5. In conjunction with the broad-based posterior disc bulge this results in moderate left and severe right neural foraminal narrowing. Received Solumedrol IV in the ER Ortho on board Case discussed with Dr. Blandon who consider surgical invention with lumbar decompression and fusion Pt denies any chest pain, palpitation and SOB She said that she able to walk to the mailbox and in the grocery store with no chest discomfort and SOB She said the only thing that limited her is her back pain She said that she had a history of TIA in the past and has been on plavix Will get a resting ECHO if normal pt will be stable to proceed with the procedure Ortho discussed with patient in details about the procedure and risks and complications (See ortho note) Pt has not been taking the plavix since Thursday, will hold plavix Continue pain control for now (2) Hypertension: BP controlled continue losartan Will hold HCTZ for possible surgery in tomorrow (3) History of TIA (transient ischemic attack): Remote history of TIA Plavix on hold in preparation for any possible invasive procedure Continue statin (4) GERD (gastroesophageal reflux disease): Continue PPI Hypothyroidism Continue Levothyroxine (5) DVT prophylaxis: On SQ Lovenox (Pt refused it today ) Will change to heparin subq for today, then hold it in am Will add SCD Admission and Anticipated Discharge Date Admission Date: May 16, 2019 Subjective Pt was seen and examined Lying in bed with no distress with daughter at bedside Pt said that her main complaint is her back pain Pain worst with walking or standing straight Denies any chest pain, palpitation, dizziness, bladder or bowel loss and SOB Physical Exam Physical Exam: General- No acute distress Head- atraumatic Eyes- PERRL, EOMI, ENT- oropharynx clear Neck- supple, no JVD Lungs- clear to auscultation Heart- regular rhythm; no murmur Abdomen- normal bowel sounds, soft, nontender Extremities- no calf tenderness Neuro- alert, oriented x 3; PERRL, EOMI; no facial palsy; no dysarthria Skin- warm & dry Results & Data ([facility]) Vital Signs (Past 12 Hours) Vital Signs Temp Pulse Resp BP Pulse Ox 05/17/19 15:15 36.8 C 79 18 117/63 93 05/17/19 11:12 36.7 C 83 18 130/71 93
[2019-05-17] MEDS ORDERED: LORazepam 0.5 MG TAB PO STA (20:12)
[2019-05-17] MEDS: AMITRIPTYLINE HCL 25 MG TAB PO SCH (20:20)
[2019-05-17] MEDS: GABAPENTIN 300 MG CAP PO SCH (20:20)
[2019-05-17] MEDS ORDERED: LORazepam 0.5 MG TAB PO PRN (20:31)
[2019-05-17] MEDS ORDERED: HEPARIN SOD 5,000 UNIT/0.5 ML VIAL SQ ONE (22:00)
[2019-05-17] MEDS: MoRPHine SULFATE 4 MG/ML 1 ML CARP\\VIAL IV PRN (23:08)
[2019-05-18] MEDS: OXYCODONE HCL IR 5 MG TAB (IMMEDIATE RELEASE) PO PRN (02:25)
[2019-05-18] MEDS: ACETAMINOPHEN 325 MG TAB PO SCH ×4 (02:25→21:26)
[2019-05-18] MEDS ORDERED: HEPARIN SOD 5,000 UNIT/0.5 ML VIAL SQ SCH (06:00)
[2019-05-18] MEDS: LEVOTHYROXINE SODIUM 137 MCG TABLET PO SCH (06:10)
[2019-05-18] MEDS: MoRPHine SULFATE 4 MG/ML 1 ML CARP\\VIAL IV PRN (06:10)
[2019-05-18] MEDS ORDERED: PERFLUTREN LIPID MICROSPHERE (DEFINITY) IV ONE (07:45)
[2019-05-18] MEDS: ONDANSETRON INJ 2 MG/ML 2 ML VIAL IV PRN ×2 (08:26→22:27)
[2019-05-18] MEDS: GABAPENTIN 100 MG CAP PO SCH (10:04)
[2019-05-18] MEDS: POLYETHYLENE (MIRALAX) 17 GM PACK PO SCH (10:07)
[2019-05-18] MEDS: PANTOprazole 40 MG TAB PO SCH (10:08)
[2019-05-18] MEDS: LOSARTAN POTASSIUM 50 MG TAB PO SCH (10:08)
[2019-05-18] MEDS: DOCUSATE SODIUM 100 MG CAP PO SCH ×2 (10:09→21:22)
--- NOTE | 2019-05-18 14:12 | Anesthesiology Consultation ---
Date of Service May 18, 2019 Assessment & Plan Chart Review Chart Review: Acceptable Risk for Surgery and Patient NOT seen in Pre Admission Testing Consults Requested none ASA ASA4 Proposed Anesthesia Anesthesia Line Insertion: Arterial line History Surgery Operation Date: 05/18/19 07:30 Proposed Procedures p L4-L5 Decompression and Fusion, Spinal Cord Monitoring - Chandana Blandon DO Height/Weight Height: 5 ft 5 in Weight: 73 kg Allergies Allergy/AdvReac Type Severity Reaction Status Date / Time aspirin Allergy Unknown HIVES Verified 05/16/19 11:37 Cipro Allergy Unknown NUMBNESS Verified 11/23/14 10:01 INTENSIFIED IN BOTH FEET ciprofloxacin Allergy Unknown NUMBNESS Verified 05/16/19 11:37 INTENSIFIED IN BOTH FEET fentanyl Allergy Unknown SEE PEOPLE Verified 05/16/19 11:37 AND HEAR VOICES codeine AdvReac Severe Nausea Unverified 05/16/19 11:37 hydromorphone [From Dilaudid] AdvReac Severe Nausea Unverified 05/16/19 11:37 oxycodone [From Percocet] AdvReac Severe Nausea Unverified 05/16/19 11:37 Ethanol Allergy Unknown SEE PEOPLE Uncoded 05/16/19 11:37 AND HEAR VOICES MONOSTAT Allergy Unknown CRAMPS Uncoded 05/16/19 11:37 PROSTIGIMIN Allergy Unknown TONGUE Uncoded 05/16/19 11:37 SWELLS Medications Home Medications Medication Instructions Recorded Confirmed Last Taken amitriptyline 25 mg PO HS 05/16/19 05/16/19 05/15/19 atorvastatin 10 mg PO Q2D@2100 05/16/19 05/16/19 05/14/19 21:00 clopidogrel 75 mg PO QAM 05/16/19 05/16/19 05/15/19 fluticasone propionate 2 spray INTRANASAL HS 05/16/19 05/16/19 05/15/19 gabapentin 200 mg PO QAM 05/16/19 05/16/19 05/16/19 gabapentin 300 mg PO HS 05/16/19 05/16/19 05/15/19 hydrochlorothiazide 12.5 mg PO QAM 05/16/19 05/16/19 05/16/19 levothyroxine 137 mcg PO QAM 05/16/19 05/16/19 05/16/19 lorazepam 0.5 mg PO DAILY PRN 05/16/19 05/16/19 05/15/19 21:00 losartan 50 mg PO QAM 05/16/19 05/16/19 05/16/19 pantoprazole 20 mg PO QAM 05/16/19 05/16/19 05/16/19 prednisone 10 mg PO UD 05/16/19 05/16/19 Unknown Active Medications Generic Name Dose Route Start Last Admin Trade Name Freq PRN Reason Stop Dose Admin Acetaminophen 650 mg 05/16/19 13:58 05/18/19 13:16 Tylenol PO 06/15/19 13:57 Not Given Q6H MEHUL Amitriptyline HCl 25 mg 05/16/19 21:00 05/17/19 20:20 Elavil PO 06/15/19 20:59 25 mg HS MEHUL Administration Atorvastatin Calcium 10 mg 05/16/19 21:00 05/16/19 20:48 Lipitor PO 06/15/19 20:59 10 mg Q2D@2100 MEHUL Administration Docusate Sodium 100 mg 05/16/19 21:00 05/18/19 10:09 Colace PO 06/15/19 20:59 100 mg BID MEHUL Administration Gabapentin 300 mg 05/16/19 21:00 05/17/19 20:20 Neurontin PO 06/15/19 20:59 300 mg HS MEHUL Administration Gabapentin 200 mg 05/17/19 09:00 05/18/19 10:04 Neurontin PO 06/16/19 08:59 200 mg QAM MEHUL Administration Gadobutrol 7 ml 05/16/19 17:09 05/16/19 17:10 Gadavist 65ml IV 05/20/19 17:08 7 ml ONCE PRN Administration Interaction Checking Hydrochlorothiazide 12.5 mg 05/17/19 09:00 05/17/19 09:12 Hctz PO 06/16/19 08:59 12.5 mg QAM MEHUL Administration Levothyroxine Sodium 137 mcg 05/17/19 06:30 05/18/19 06:10 Levothyroxine Sodium PO 06/16/19 06:29 137 mcg DAILYBB MEHUL Administration Lorazepam 0.5 mg 05/17/19 20:31 05/17/19 21:53 Ativan PO 06/16/19 20:30 0.5 mg HS PRN Administration Sleep Losartan Potassium 50 mg 05/17/19 09:00 05/18/19 10:08 Cozaar PO 06/16/19 08:59 50 mg QAM MEHUL Administration Morphine Sulfate 4 mg 05/16/19 13:58 05/18/19 06:10 Morphine Sulfate IV 05/30/19 13:57 4 mg Q4H PRN Administration severe pain Ondansetron HCl 4 mg 05/18/19 08:08 05/18/19 08:26 Zofran IV 06/17/19 08:07 4 mg Q6H PRN Administration Nausea Oxycodone HCl 5 mg 05/16/19 13:58 05/18/19 02:25 Roxicodone Immediate Rel PO 05/30/19 13:57 5 mg Q6H PRN Administration Pain Pantoprazole Sodium 40 mg 05/17/19 09:00 05/18/19 10:08 Protonix PO 06/16/19 08:59 40 mg QAM MEHUL Administration Polyethylene Glycol 17 gm 05/16/19 14:15 05/18/19 10:07 Miralax Powder Packet PO 06/15/19 14:14 Not Given DAILY MEHUL Past Medical History Medical History Chronic back pain GERD (gastroesophageal reflux disease) History of ankle fracture History of Chanell thyroiditis History of TIA (transient ischemic attack) Hyperlipidemia Hypertension Left bundle branch block Osteoarthritis Peripheral neuropathy Postoperative hypothyroidism Rectocele Exercise / Class Metabolic Activity III < 4 Walking/Shop/Light housework Past Family History Family History Sister Breast cancer Mother Heart disease Past Surgical History Surgical History H/O partial mastectomy H/O thyroidectomy H/O tubal ligation History of appendectomy History of bilateral knee replacement History of carpal tunnel surgery History of cataract surgery History of cholecystectomy History of total abdominal hysterectomy Past Anesthesia History No Hx of Anesthesia Complications and No Family Hx of Anesthesia Complications History of PONV No Hx of PONV and No Hx of Motion Sickness Social History Smoking Status: Never smoker Do You Dip or Chew Tobacco: No Hx Alcohol Use: No Hx Substance Use: No substance use type: does not use Physical Exam Vital Signs Last Vital Signs Temp 36.7 C 05/18/19 07:00 Pulse 71 03/04/20 07:00 Resp 16 05/18/19 07:00 BP 129/69 05/18/19 07:00 Pulse Ox 92 05/18/19 07:00 Testing Laboratory Results 05/16/19 10:14 05/17/19 08:41 Blood Type A Positive 05/18/19 07:50 Antibody Screen NEGATIVE 05/18/19 07:50 Echocardiogram Date: 05/18/19 EF: 60% LV Function: normal RWMA: + none Other Findings: + LVH (mild) Valvular Disease: + no significant valvular disease
[2019-05-18] MEDS ORDERED: ONDANSETRON INJ 2 MG/ML 2 ML VIAL ONE (14:28)
[2019-05-18] MEDS ORDERED: PROPOFOL IV EMULSION 10 MG/ML 20 ML VIAL IV ONE ×2 (14:28→16:50)
[2019-05-18] MEDS ORDERED: KETAMINE HCL INJ 50 MG/ML 10 ML VIAL ONE (14:28)
[2019-05-18] MEDS ORDERED: NEOSTIGMINE METHYLSULFATE 5 MG/5 ML SYR ONE (14:28)
[2019-05-18] MEDS ORDERED: GLYCOPYRROLATE 0.2 MG/ML VIAL ONE (14:28)
[2019-05-18] MEDS ORDERED: ROCURONIUM BROMIDE 10 MG/ML 5 ML VIAL ONE (14:28)
[2019-05-18] MEDS ORDERED: LIDOCAINE HCL 2% 2 ML VIAL/AMP(20MG/ML) INFIL ONE (14:28)
[2019-05-18] MEDS ORDERED: EPINEPHrine INJ 1 MG/ML AMP ONE (14:59)
[2019-05-18] MEDS ORDERED: BUPIVACAINE 0.5 % 5 MG/1 ML MPF 30ML VIAL ONE (15:00)
[2019-05-18] MEDS ORDERED: BACITRACIN INJ 50,000 UNIT VIAL ONE (15:00)
--- NOTE | 2019-05-18 15:27 | History & Physical Bridge Note ---
Date of Service May 18, 2019 History & Physical Bridge Note I have examined the patient, reviewed the History & Physical and in the interval since the performance of the History & Physical I have noted the following changes of clinical significance: no changes noted Lumbar decompression fusion L4-5 possible L3-4
[2019-05-18] MEDS ORDERED: fentaNYL citrate 100 MCG/2 ML VIAL ONE (15:34)
[2019-05-18] MEDS ORDERED: CEFAZOLIN 2000MG 2,000 MG/15 ML SYR IV ONE (15:54)
[2019-05-18] MEDS ORDERED: NALOXONE HCL 0.4 MG/1 ML VIAL/CARP IV PRN ×2 (16:04→19:37)
[2019-05-18] MEDS ORDERED: ONDANSETRON INJ 2 MG/ML 2 ML VIAL IV PRN ×2 (16:04→19:37)
[2019-05-18] MEDS ORDERED: LABETALOL HCL IV 5 MG/ML 20ML IV PRN (16:04)
[2019-05-18] MEDS ORDERED: fentaNYL citrate 100 MCG/2 ML VIAL IV PRN (16:04)
[2019-05-18] MEDS ORDERED: FLUMAZENIL 0.1 MG/1 ML 10 ML VIAL IV PRN (16:04)
[2019-05-18] MEDS ORDERED: ATROPINE SULFATE 0.1 MG/ML 10ML SYR IV PRN (16:04)
[2019-05-18] MEDS ORDERED: PROMETHAZINE HCL 12.5 MG in SODIUM CHLORIDE 0.9% 50 ML IV PRN ×2 (16:04→19:37)
--- NOTE | 2019-05-18 16:09 | Electrocardiogram Report ---
Test Reason : Blood Pressure : / mmHG Vent. Rate : 074 BPM Atrial Rate : 074 BPM P-R Int : 172 ms QRS Dur : 138 ms QT Int : 424 ms P-R-T Axes : 036 -15 152 degrees QTc Int : 470 ms Normal sinus rhythm Left bundle branch block Abnormal ECG No previous ECGs available Confirmed by Anibal Desouza ([id number]) on 05/18/2019 4:08:41 PM Referred By: REFERRED SELF Confirmed By:Anibal Desouza
[2019-05-18] MEDS ORDERED: FLOSEAL HEMOSTATIC MATRIX 10ML TOP ONE (17:00)
--- NOTE | 2019-05-18 17:49 | Operative Report ---
Post Operative Report Pre & Post Diagnosis Operation Date: 05/18/19 07:30 Pre-Op Diagnosis: Intractable back pain; Right lumbar radiculopathy Grade 1 spinal listhesis L4-5. Further discrimination L4-5 on the right. Postop is the same I identified the patient and participated in the time-out.: Yes Procedure Operation Date: 05/18/19 07:30 Actual Procedures #1 lumbar compression with bilateral medial facetectomies foraminotomies L3-4 L4-5. #2 posterior spinal fusion L4-5 per #3 placed posterior instrumentation L4-5 per #4 interbody fusion L4-5 per #5 placed a peek cage 12 x 22 mm at L4-5 per #6 placement of locally harvested morselized autograft in the posterior lateral gutters per #7 placement infuse collagen sponge, master graft in the posterior lateral gutters and ostial amp and interbody space. Surgeon Chandana Blandon, Merchandise Complaint Adjuster Portia Avery Estimated Blood Loss 100 Findings Consistent with Post-Op Diagnosis Specimens None Indications This is a 83-year-old female who presents above-mentioned diagnosis after failing extensive course of nonoperative care having significant radiculopathy with inability to ambulate she elected to undergo the above-mentioned procedure. Description of Procedure Patient was met with identified informed consent obtained. Patient was then taken to the operative suite underwent intubation placed in a prone position the Jonas on top of the Domenico frame. All bony prominences well-padded eyes inspected to ensure no external pressure placed upon the. This point the lumbar spine was prepped and draped in normal sterile fashion. Sharp dissection with the assistance of Bovie cautery was performed down to and exposing the lamina and transverse processes of L4 and L5. From caudal cephalad fashion complete laminectomy of L for partial laminectomy of L3 was performed including bilateral medial facetectomies and foraminotomies as well as addressing the far lateral disc herniation within the foramen at L4-5 in the right. After complete decompression pedicle screws were placed in L4 and L5 bilaterally with assistance of fluoroscopy the proper sized jonny placed. By way of a trans- foramen approach on the right a complete discectomy was performed endplates curetted to subcortical being bone and a 12 x 22 mm peek cage filled with osteo- bone graft tapped in position. The rods were then locked in final position bilaterally. Transverse processes of L4 and L5 bur to subcortical bleeding bone. Infuse collagen sponge master graft local autograft placed in the posterior lateral gutters. 15 round KEVIN drain inserted. The incision was then closed with 1 Vicryl in the fascia 2-0 Vicryl subcutaneously and 4 Monocryl for final skin closure. Steri-Strip sterile dressings placed. Patient will continue PACU stable condition. Please note Portia Avery present all the entire procedure involved the patient positioning complex portions of the surgery and final skin closure. I attest to the content of the Intraoperative Record and any orders documented therein. Any exceptions are noted below.
--- NOTE | 2019-05-18 18:01 | Fluoroscopy Report ---
FL lumbar spine 2-3V CLINICAL HISTORY: L4-5 DECOMPRESSION/FUSION COMPARISON STUDY: Lumbar spine 05/16/2019. FLUOROSCOPY TIME: 13 seconds. FINDINGS: 2 fluoroscopic spot images of the lumbar spine demonstrate posterior decompression fusion a t L4-L5 with pedicle screws and rods. The hardware appears intact. IMPRESSION: Fluoroscopy provided for L4-L5 posterior decompression and fusion ACT 112: Negative or not required by law. Electronically signed by: Yared Sweet M.D. 05/18/2019 6:00 PM
--- NOTE | 2019-05-18 18:49 | Anesthesiology Progress Note ---
Date of Service May 18, 2019 Anesthesia Post Procedure Vital Signs Vital Signs: Temp Pulse Pulse Resp BP Pulse Ox 05/18/19 18:45 93 H 20 169/80 H 96 05/18/19 18:35 91 H 18 166/76 H 96 05/18/19 18:25 89 24 169/89 H 98 05/18/19 18:15 82 20 162/81 H 97 05/18/19 18:07 37.0 C 88 20 171/88 H 94 05/18/19 14:54 36.6 C 76 18 139/75 91 05/18/19 07:00 36.7 C 71 16 129/69 92 05/17/19 23:10 36.6 C 78 22 148/69 H 95 Pain Intensity Right Leg: Pain Intensity: 8 Transfer of Care Handoff Completed per policy Notes Mental Status: alert / awake / arousable and participated in evaluation Patient Amnestic to Procedure: Yes Nausea / Vomiting: adequately controlled Pain: adequately controlled Airway Patency, RR, SpO2: stable & adequate BP & HR: stable & adequate (Being treated with labetalol for mild, postoperative HTN) Hydration State: stable & adequate Anesthetic Complications: no major complications apparent and Pt Satisfied with anesthetic care
[2019-05-18] MEDS ORDERED: ACETAMINOPHEN 500 MG TAB PO PRN (19:37)
[2019-05-18] MEDS ORDERED: DO NOT ADMINISTER PNEUMOCOCCAL VACCINE PRN (19:37)
[2019-05-18] MEDS ORDERED: HYDROmorphone INJ 1 MG/ML SYRINGE IV PRN (19:37)
[2019-05-18] MEDS ORDERED: ACETAMINOPHEN 1,000 MG/100 ML VIAL IV PRN (19:37)
[2019-05-18] MEDS ORDERED: METOCLOPRAMIDE HCL INJ 5 MG/ML 2 ML VIAL IV PRN (19:37)
[2019-05-18] MEDS ORDERED: OXYCODONE HCL IR 5 MG TAB (IMMEDIATE RELEASE) PO PRN (19:37)
[2019-05-18] MEDS ORDERED: ALUMINUM/MAGNESIUM SUSP 30 ML UDC PO PRN (19:37)
[2019-05-18] MEDS ORDERED: FAMOTIDINE 20 MG TAB PO PRN (19:37)
[2019-05-18] MEDS ORDERED: SOD PHOSPHATE/SOD BIPHOSPHATE ENEMA 132 ML BTL PR PRN (19:37)
[2019-05-18] MEDS ORDERED: LORazepam 0.5 MG TAB PO PRN (19:37)
[2019-05-18] MEDS ORDERED: bisacodyL 10 MG SUPP PR PRN (19:37)
[2019-05-18] MEDS ORDERED: ONDANSETRON 4 MG OD TAB PO PRN (19:37)
[2019-05-18] MEDS ORDERED: LORazepam 0.5 MG/1 ML VIAL IV PRN (19:37)
[2019-05-18] MEDS ORDERED: MAGNESIUM HYDROXIDE SUSP 30 ML UDC PO PRN (19:37)
[2019-05-18] MEDS ORDERED: DO NOT ADMINISTER FLU VACCINE PRN (19:37)
[2019-05-18] MEDS ORDERED: HYDROmorphone INJ 0.5 MG/0.5 ML SYR IV PRN (19:37)
--- NOTE | 2019-05-18 20:28 | Hospitalist Progress Note ---
Date of Service May 18, 2019 Assessment & Plan (1) Right lumbar radiculopathy: Presented with severe low back pain radiating to right lower extremity. Plain films of the lumbar spine demonstrated degenerative changes, anterolisthesis L4 on L5. MRI demonstrated multilevel lumbar spondylosis with pronounced changes at L2-L3 and L3-L4, grade 1 anterolisthesis of L4 on L5 with broad-based posterior disc bulge resulting in moderate left and severe right neuroforaminal narrowing with compression of the exiting right L4 nerve root due to neuroforaminal narrowing. No improvement after receiving steroids and analgesics. Ortho Spine consulted. Surgical intervention recommended. Lumbar decompression with bilateral medial facetectomies foraminotomies L3-L4 and L4-L5 with spinal fusion performed by Dr. Blandon. (2) History of TIA (transient ischemic attack): Clopidogrel held for lumbar surgery; resume when OK with Ortho. Continue statin. (3) Hypertension: Continue HCTZ and losartan. (4) GERD (gastroesophageal reflux disease): Continue PPI. (5) Hypothyroidism: Continue levothyroxine. (6) Hyperlipidemia: Continue atorvastatin. (7) DVT prophylaxis: Initially received SQ enxoaparin- held for surgery. TEDS / SCD's postop. Ambulate as able. (8) Discharge planning issues: Discharge disposition to be determined. PT / OT evals postop. Medical follow-up with Dr. Webster. Admission and Anticipated Discharge Date Admission Date: May 16, 2019 Subjective Recheck for lumbar radiculopathy and other problems. Patient seen in their room around 1999. Lumbar decompression / fusion performed this afternoon by Dr. Blandon. Doing well postop except for some mild confusion and mild postop pain. Review of Systems: Constitutional- no fever. Cardiac- no chest pain. Pulmonary- no cough or SOB. GI- no nausea, vomiting, diarrhea, melena, hematochezia. - Perez cath. Otherwise, as noted above. Physical Exam Constitutional: no acute distress Respiratory: no respiratory distress Auscultation: lungs clear to auscultation bilaterally Cardiovascular: Rate/Rhythm: regular rate and regular rhythm Heart Sounds: no gallop Vessels: no JVD Extremities: no calf tenderness and no edema Gastrointestinal (Abdomen): normal bowel sounds, soft, nontender, no hepatosplenomegaly Musculoskeletal: TEDS and SCD's applied Skin: no rashes, warm and dry Psychiatric: Orientation: alert Genitourinary: Perez cath draining clear urine Results & Data ([facility]) Vital Signs (Past 12 Hours) Vital Signs Temp Pulse Pulse Resp BP Pulse Ox 05/18/19 19:45 36.6 C 79 18 148/76 H 94 05/18/19 19:05 81 15 156/74 H 95 05/18/19 18:55 36.5 C 84 21 149/71 H 96 05/18/19 18:45 93 H 20 169/80 H 96 05/18/19 18:35 91 H 18 166/76 H 96 05/18/19 18:25 89 24 169/89 H 98 05/18/19 18:15 82 20 162/81 H 97 05/18/19 18:07 37.0 C 88 20 171/88 H 94 05/18/19 14:54 36.6 C 76 18 139/75 91 Laboratory Results 05/16/19 10:14 05/17/19 08:41
[2019-05-18] MEDS ORDERED: DOCUSATE SODIUM/SENNA 50/8.6MG TAB PO SCH (21:00)
[2019-05-18] MEDS: ATORVASTATIN 10 MG TAB PO SCH (21:22)
[2019-05-18] MEDS: GABAPENTIN 300 MG CAP PO SCH (21:23)
[2019-05-18] MEDS: AMITRIPTYLINE HCL 25 MG TAB PO SCH (21:23)
[2019-05-18] MEDS: SODIUM CHLORIDE 0.9% 1000ML 1,000 ML IV SCH (21:26)
[2019-05-19] MEDS: CEFAZOLIN 2000MG 2,000 MG/15 ML SYR IV SCH ×2 (00:33→09:08)
[2019-05-19] MEDS: ACETAMINOPHEN 325 MG TAB PO SCH ×4 (02:30→21:13)
[2019-05-19] MEDS: LEVOTHYROXINE SODIUM 137 MCG TABLET PO SCH (06:02)
[2019-05-19] MEDS: POLYETHYLENE (MIRALAX) 17 GM PACK PO SCH ×3 (06:03→11:28)
[2019-05-19] MEDS: SODIUM CHLORIDE 0.9% 1000ML 1,000 ML IV SCH (06:03)
[2019-05-19 08:12] LABS: Basophils # (auto) 0.01 K/uL (0-0.2); Basophils % (auto) 0.1 %; Hematocrit (blood only) 36.7 % (37-47); Immature Granulocytes # (auto) 0.08 K/uL (0.00-0.02); Immature Granulocytes % (auto) 0.5 %; Lymphocytes # (auto) 1.24 K/uL (1.2-3.4); Lymphocytes % (auto) 7.2 %; Mean Corpuscular Hemoglobin 29.2 pg (25-34); Mean Corpuscular Hgb Conc 32.7 g/dL (32-36); Mean Corpuscular Volume 89.3 fL (80-100); Mean Platelet Volume 8.3 fL (7.4-10.4); Monocytes # (auto) 0.92 K/uL (0.11-0.59); Monocytes % (auto) 5.3 %; Neutrophils # (auto) 15.05 K/uL (1.4-6.5); Neutrophils % (auto) 86.9 %; Platelet Count 181 K/uL (130-400); RDW Coefficient of Variation 15.3 % (11.5-14.5); RDW Standard Deviation 49.7 fL (36.4-46.3); Red Blood Count 4.11 M/uL (4.2-5.4)
--- NOTE | 2019-05-19 08:19 | Orthopedic Progress Note ---
Date of Service May 19, 2019 Assessment & Plan (1) Right lumbar radiculopathy: We will initiate physical therapy today monitor KEVIN output hopefully discharge to rehab in the next few days. Present on Admission?: Yes Admission and Anticipated Discharge Date Admission Date: May 16, 2019 Subjective Patient's back pain is controlled leg symptoms markedly improved. Physical Exam Physical Exam: Patient is in the chair at the bedside. She is comfortable. Has excellent strength testing. Results & Data ([facility]) Vital Signs (Past 12 Hours) Vital Signs Temp Pulse Resp BP Pulse Ox 05/19/19 07:11 36.6 C 83 16 104/62 94 05/19/19 04:17 36.5 C 90 18 103/61 93 05/18/19 23:05 36.5 C 93 H 18 121/67 93 05/18/19 22:17 36.6 C 90 16 141/79 H 93 05/18/19 21:14 36.8 C 93 H 18 134/71 95 05/18/19 20:25 36.8 C 83 18 134/72 95
[2019-05-19 08:34] LABS: BUN Creatinine Ratio 30.2 (10-20); Calcium 8.7 mg/dl (8.5-10.1); Creatinine Clr Calc Pharmacy 53.5 ml/min; Est GFR (African American) 81.6; Est GFR (Non-African American) 70.4; Potassium 4.1 mmol/L (3.5-5.1)
[2019-05-19] MEDS: LOSARTAN POTASSIUM 50 MG TAB PO SCH (09:06)
[2019-05-19] MEDS: PANTOprazole 40 MG TAB PO SCH (09:06)
[2019-05-19] MEDS: DOCUSATE SODIUM 100 MG CAP PO SCH ×2 (09:06→21:14)
[2019-05-19] MEDS: GABAPENTIN 100 MG CAP PO SCH (09:06)
[2019-05-19] MEDS: hydroCHLOROthiazide 25 MG TAB PO SCH (11:22)
[2019-05-19] MEDS: TRAMADOL HCL 50 MG TABLET PO PRN ×2 (12:02→22:10)
[2019-05-19] MEDS ORDERED: Nursing to Pharmacy Communication ONE (13:42)
[2019-05-19] MEDS ORDERED: POLYETHYLENE (MIRALAX) 17 GM PACK PO PRN (15:40)
--- NOTE | 2019-05-19 19:59 | Hospitalist Progress Note ---
Date of Service May 19, 2019 Assessment & Plan (1) Right lumbar radiculopathy: Presented with severe low back pain radiating to right lower extremity. Plain films of the lumbar spine demonstrated degenerative changes, anterolisthesis L4 on L5. MRI demonstrated multilevel lumbar spondylosis with pronounced changes at L2-L3 and L3-L4, grade 1 anterolisthesis of L4 on L5 with broad-based posterior disc bulge resulting in moderate left and severe right neuroforaminal narrowing with compression of the exiting right L4 nerve root due to neuroforaminal narrowing. No improvement after receiving steroids and analgesics. Ortho Spine consulted. Surgical intervention recommended. Lumbar decompression with bilateral medial facetectomies foraminotomies L3-L4 and L4-L5 with spinal fusion performed by Dr. Blandon. Postop management per Ortho Spine. (2) History of TIA (transient ischemic attack): Clopidogrel held for lumbar surgery; resume when OK with Ortho. Continue statin. (3) Hypertension: Continue HCTZ and losartan. (4) GERD (gastroesophageal reflux disease): Continue PPI. (5) Hypothyroidism: Continue levothyroxine. (6) Hyperlipidemia: Continue atorvastatin. (7) DVT prophylaxis: Initially received SQ enxoaparin- held for surgery. TEDS / SCD's postop. Ambulate as able. (8) Discharge planning issues: Anticipated need for skilled care. [facility] [place] and would like to go there for skilled care. Medical follow-up with Dr. Webster. Admission and Anticipated Discharge Date Admission Date: May 16, 2019 Subjective Recheck for lumbar radiculopathy and other problems. Patient seen in their room around 1320. Doing well postop except for some mild postop pain. Ambulated a bit with PT. Few loose BM's- receiving Senokot-S, Colace, and MiraLax. Review of Systems: Constitutional- no fever. Cardiac- no chest pain. Pulmonary- no cough or SOB. GI- no nausea, vomiting, melena, hematochezia. - Otherwise, as noted above. Physical Exam Constitutional: no acute distress Respiratory: no respiratory distress Auscultation: lungs clear to auscultation bilaterally Cardiovascular: Rate/Rhythm: regular rate and regular rhythm Heart Sounds: no gallop Vessels: no JVD Extremities: no calf tenderness and no edema Gastrointestinal (Abdomen): normal bowel sounds, soft, nontender, no hepatosplenomegaly Skin: no rashes, warm and dry Psychiatric: Orientation: alert Results & Data ([facility]) Vital Signs (Past 12 Hours) Vital Signs Temp Pulse Pulse Resp BP Pulse Ox 05/19/19 15:52 36.5 C 81 17 96/54 L 94 05/19/19 10:56 36.6 C 74 16 106/62 95 Laboratory Results 05/19/19 07:26 05/19/19 07:26
[2019-05-19] MEDS: AMITRIPTYLINE HCL 25 MG TAB PO SCH (21:13)
[2019-05-19] MEDS: GABAPENTIN 300 MG CAP PO SCH (21:14)
[2019-05-20] MEDS: ACETAMINOPHEN 325 MG TAB PO SCH ×4 (01:24→19:18)
[2019-05-20] MEDS: LEVOTHYROXINE SODIUM 137 MCG TABLET PO SCH (06:11)
[2019-05-20] MEDS: TRAMADOL HCL 50 MG TABLET PO PRN (06:34)
[2019-05-20 07:06] LABS: Est GFR (African American) 73.5; Est GFR (Non-African American) 63.4
[2019-05-20] MEDS: DOCUSATE SODIUM 100 MG CAP PO SCH ×2 (08:44→21:06)
[2019-05-20] MEDS: hydroCHLOROthiazide 25 MG TAB PO SCH (08:45)
[2019-05-20] MEDS: LOSARTAN POTASSIUM 50 MG TAB PO SCH (08:45)
[2019-05-20] MEDS: GABAPENTIN 100 MG CAP PO SCH (08:46)
[2019-05-20] MEDS: PANTOprazole 40 MG TAB PO SCH (08:46)
--- NOTE | 2019-05-20 13:33 | Orthopedic Progress Note ---
Date of Service May 20, 2019 Assessment & Plan (1) Right lumbar radiculopathy: This time continue physical therapy monitor KEVIN output anticipate discharge to rehab tomorrow. Present on Admission?: Yes Admission and Anticipated Discharge Date Admission Date: May 16, 2019 Subjective Back pain is controlled leg symptoms markedly improved. Physical Exam Physical Exam: Patient is good strength testing appears comfortable. Results & Data ([facility]) Vital Signs (Past 12 Hours) Vital Signs Temp Pulse Resp BP Pulse Ox 05/20/19 08:03 36.7 C 74 16 115/55 L 93
[2019-05-20] MEDS: GABAPENTIN 300 MG CAP PO SCH (21:07)
[2019-05-20] MEDS: AMITRIPTYLINE HCL 25 MG TAB PO SCH (21:08)
[2019-05-20] MEDS: ATORVASTATIN 10 MG TAB PO SCH (21:08)
--- NOTE | 2019-05-20 23:28 | Hospitalist Progress Note ---
Date of Service May 20, 2019 Assessment & Plan (1) Right lumbar radiculopathy: Presented with severe low back pain radiating to right lower extremity. Plain films of the lumbar spine demonstrated degenerative changes, anterolisthesis L4 on L5. MRI demonstrated multilevel lumbar spondylosis with pronounced changes at L2-L3 and L3-L4, grade 1 anterolisthesis of L4 on L5 with broad-based posterior disc bulge resulting in moderate left and severe right neuroforaminal narrowing with compression of the exiting right L4 nerve root due to neuroforaminal narrowing. No improvement after receiving steroids and analgesics. Ortho Spine consulted. Surgical intervention recommended. Lumbar decompression with bilateral medial facetectomies foraminotomies L3-L4 and L4-L5 with spinal fusion performed by Dr. Blandon. Postop management per Ortho Spine. (2) History of TIA (transient ischemic attack): Clopidogrel held for lumbar surgery; resume when OK with Ortho. Continue statin. (3) Hypertension: Continue HCTZ and losartan. (4) GERD (gastroesophageal reflux disease): Continue PPI. (5) Hypothyroidism: Continue levothyroxine. (6) Hyperlipidemia: Continue atorvastatin. (7) DVT prophylaxis: Initially received SQ enxoaparin- held for surgery. TEDS / SCD's postop. Ambulate as able. (8) Discharge planning issues: Anticipated need for skilled care. [facility] [place] [facility] would like to go there for skilled care. Medical follow-up with Dr. Webster. Admission and Anticipated Discharge Date Admission Date: May 16, 2019 Subjective Recheck for lumbar radiculopathy and other problems. Patient seen in their room around 1700. Daughter visiting. Doing well postop except for some mild postop pain. Gets confused with narcotic analgesics and trying to avoid them. Ambulating with PT. Loose stools improved. Review of Systems: Constitutional- no fever. Cardiac- no chest pain. Pulmonary- no cough or SOB. GI- no nausea, vomiting, melena, hematochezia. - voiding without difficulty. Otherwise, as noted above. Physical Exam Constitutional: no acute distress Respiratory: no respiratory distress Auscultation: lungs clear to auscultation bilaterally Cardiovascular: Rate/Rhythm: regular rate and regular rhythm Heart Sounds: no gallop Vessels: no JVD Extremities: no calf tenderness and no edema Gastrointestinal (Abdomen): normal bowel sounds, soft, nontender, no hepatosplenomegaly Skin: no rashes, warm and dry Psychiatric: Orientation: alert Results & Data ([facility]) Vital Signs (Past 12 Hours) Vital Signs Temp Pulse Resp BP Pulse Ox 05/20/19 15:18 36.6 C 86 18 112/56 L 95
[2019-05-20] MEDS ORDERED: COUGH DROP (SUGAR FREE) LOZ 24 LOZ/1 BOX BUCCAL PRN (23:57)
[2019-05-21] MEDS ORDERED: COUGH DROP (SUGAR FREE) LOZ 24 LOZ/1 BOX BUCCAL ONE (00:11)
[2019-05-21] MEDS: ACETAMINOPHEN 325 MG TAB PO SCH ×3 (02:24→13:10)
[2019-05-21] MEDS: LEVOTHYROXINE SODIUM 137 MCG TABLET PO SCH (05:36)
[2019-05-21 06:27] VITALS: BP 101/59; PULSE 80; TEMP 97.7; O2SAT 95
[2019-05-21] MEDS: DOCUSATE SODIUM 100 MG CAP PO SCH (07:29)
[2019-05-21] MEDS: LOSARTAN POTASSIUM 50 MG TAB PO SCH (07:30)
[2019-05-21] MEDS: GABAPENTIN 100 MG CAP PO SCH (07:30)
[2019-05-21] MEDS: hydroCHLOROthiazide 25 MG TAB PO SCH (07:31)
[2019-05-21] MEDS: PANTOprazole 40 MG TAB PO SCH (07:31)
[2019-05-21 08:23] LABS: Hematocrit (blood only) 32.6 % (37-47); Hemoglobin 10.4 g/dL (12.0-16.0); Mean Corpuscular Hemoglobin 29.5 pg (25-34); Mean Corpuscular Hgb Conc 31.9 g/dL (32-36); Mean Corpuscular Volume 92.4 fL (80-100); Mean Platelet Volume 8.1 fL (7.4-10.4); Platelet Count 141 K/uL (130-400); RDW Coefficient of Variation 15.9 % (11.5-14.5); RDW Standard Deviation 53.2 fL (36.4-46.3); Red Blood Count 3.53 M/uL (4.2-5.4); White Blood Count 10.28 K/uL (4.8-10.8)
[2019-05-21 08:48] LABS: BUN Creatinine Ratio 26.5 (10-20); Calcium 8.4 mg/dl (8.5-10.1); Creatinine Clr Calc Pharmacy 60.5 ml/min; Est GFR (African American) 92.4; Est GFR (Non-African American) 79.8; Potassium 3.6 mmol/L (3.5-5.1)
--- NOTE | 2019-05-21 09:25 | Orthopedic Progress Note ---
Date of Service May 21, 2019 Assessment & Plan (1) Right lumbar radiculopathy: From an orthopedic standpoint she is stable to discharge to rehab. Her dressing can be changed and drain removed today as ordered. She is to follow-up in our office in approximately 2 weeks. Present on Admission?: Yes Admission and Anticipated Discharge Date Admission Date: May 16, 2019 Subjective Patient's back pain is controlled leg symptoms markedly improved. Physical Exam Physical Exam: On exam she is in the chair at the bedside. Is good strength testing. Results & Data ([facility]) Vital Signs (Past 12 Hours) Vital Signs Temp Pulse Resp BP Pulse Ox 05/21/19 06:25 36.5 C 80 18 101/59 L 95 05/20/19 23:00 36.9 C 77 16 122/61 96
--- NOTE | 2019-05-21 10:31 | Hospitalist Progress Note ---
Date of Service May 21, 2019 Assessment & Plan (1) Right lumbar radiculopathy: Presented with severe low back pain radiating to right lower extremity. Plain films of the lumbar spine demonstrated degenerative changes, anterolisthesis L4 on L5. MRI demonstrated multilevel lumbar spondylosis with pronounced changes at L2-L3 and L3-L4, grade 1 anterolisthesis of L4 on L5 with broad-based posterior disc bulge resulting in moderate left and severe right neuroforaminal narrowing with compression of the exiting right L4 nerve root due to neuroforaminal narrowing. No improvement after receiving steroids and analgesics. Ortho Spine consulted. Surgical intervention recommended. Lumbar decompression with bilateral medial facetectomies foraminotomies L3-L4 and L4-L5 with spinal fusion performed by Dr. Blandon. Did well postoperatively. (2) History of TIA (transient ischemic attack): Clopidogrel held for lumbar surgery. Resume in 1 week. Continue statin. (3) Hypertension: Continue HCTZ and losartan. (4) GERD (gastroesophageal reflux disease): Continue PPI. (5) Hypothyroidism: Continue levothyroxine. (6) Hyperlipidemia: Continue atorvastatin. (7) DVT prophylaxis: Initially received SQ enxoaparin- held for surgery. TEDS / SCD's postop. Ambulate as able. (8) Discharge planning issues: Needs skilled care before returning to independent living. Arrangements being made for transfer to [facility]. Medical follow-up with Dr. Webster about 1 week after DC from [place]. Orthopedics follow-up with Dr. Blandon in about 2 weeks. Admission and Anticipated Discharge Date Admission Date: May 16, 2019 Subjective Recheck for lumbar radiculopathy and other problems. Patient seen in their room around 1010. Daughter visiting. Doing well postop except for some mild postop pain; very pleased with operative results. Ambulating with PT. Diarrhea much better since cutting back on laxatives. Review of Systems: Constitutional- no fever. Cardiac- no chest pain. Pulmonary- no cough or SOB. GI- no nausea, vomiting, melena, hematochezia. - voiding without difficulty. Otherwise, as noted above. Physical Exam Constitutional: no acute distress Respiratory: no respiratory distress Auscultation: lungs clear to auscultation bilaterally Cardiovascular: Rate/Rhythm: regular rate and regular rhythm Heart Sounds: no gallop Vessels: no JVD Extremities: no calf tenderness and no edema Gastrointestinal (Abdomen): normal bowel sounds, soft, nontender, no hepato splenomegaly Skin: no rashes, warm and dry Psychiatric: Orientation: alert Results & Data ([facility]) Vital Signs (Past 12 Hours) Vital Signs Temp Pulse Resp BP Pulse Ox 05/21/19 06:25 36.5 C 80 18 101/59 L 95 05/20/19 23:00 36.9 C 77 16 122/61 96 Laboratory Results 05/21/19 07:54 05/21/19 07:54
--- NOTE | 2019-05-21 10:59 | Discharge Summary ---
Date of Service Date of Admission: 05/16/19 Date of Discharge: 05/21/19 Admission HPI Per Admitting Provider 83-year-old female who presents the ED for evaluation of intractable back pain. Patient reports ongoing chronic back pain for the past several years. Have been managed with injections in the past, most recently being in 2014 however postprocedure, patient had complication of lower extremity paralysis and incontinence that did eventually resolve. Since then, patient's pain has been managed with prednisone tapers. She was on a course of prednisone in February and reports improvement of the pain. About 2 weeks ago, patient developed increasing right-sided low back pain with radiation into the right hip down to the leg. She was placed on prednisone on 05/04 and has had no improvement. Patient reports difficulty walking. She regards the pain as a burning sensation. Denies any loss of bowel or bladder function. No fevers or chills. Patient denies chest pain shortness of breath. No lightheadedness, dizziness, diaphoresis, syncopal events. She denies any urinary symptoms. In the ED, lumbar spine x-ray shows degenerative changes without acute fracture and grade 1 anterolisthesis L4 on L5, likely secondary to long-standing facet arthrosis. Patient was given IV Dilaudid, IV Solu-Medrol, 2 doses of IV morphine, IV Zofran. Principal Diagnosis severe back pain with radiculopathy multilevel lumbar spondylosis with pronounced changes at L2-L3 and L3-L4 grade 1 anterolisthesis of L4 on L5 with broad-based posterior disc bulge resulting in moderate left and severe right neuroforaminal narrowing with compre ssion of the exiting right L4 nerve root due to neuroforaminal narrowing Discharge Data Allergies Allergy/AdvReac Type Severity Reaction Status Date / Time aspirin Allergy Unknown HIVES Verified 05/16/19 11:37 Cipro Allergy Unknown NUMBNESS Verified 11/23/14 10:01 INTENSIFIED IN BOTH FEET ciprofloxacin Allergy Unknown NUMBNESS Verified 05/16/19 11:37 INTENSIFIED IN BOTH FEET fentanyl Allergy Unknown SEE PEOPLE Verified 05/16/19 11:37 AND HEAR VOICES codeine AdvReac Severe Nausea Unverified 05/16/19 11:37 hydromorphone [From Dilaudid] AdvReac Severe Nausea Unverified 05/16/19 11:37 oxycodone [From Percocet] AdvReac Severe Nausea Unverified 05/16/19 11:37 Ethanol Allergy Unknown SEE PEOPLE Uncoded 05/16/19 11:37 AND HEAR VOICES MONOSTAT Allergy Unknown CRAMPS Uncoded 05/16/19 11:37 PROSTIGIMIN Allergy Unknown TONGUE Uncoded 05/16/19 11:37 SWELLS Consultations 05/16/19 12:37 ED Decision to Admit Stat 05/16/19 13:58 Consult Case Management - Discharge Planning Routine Consult Orthopedic Surgery Routine 05/18/19 19:37 Consult Case Management - Discharge Planning Routine Procedures Performed Operation Date: 05/18/19 07:30 Actual Procedures p L4-L5 Decompression and Fusion(Not Applicable) - Chandana Blandon, Ordered Studies 05/16/19 13:58 MR lumbar spine wo/w con Routine 05/18/19 14:30 FL fluoroscopy <1hr Routine FL lumbar spine 2-3V Routine Hospital Course (1) Right lumbar radiculopathy: Presented with severe low back pain radiating to right lower extremity. Plain films of the lumbar spine demonstrated degenerative changes, anterolisthesis L4 on L5. MRI demonstrated multilevel lumbar spondylosis with pronounced changes at L2-L3 and L3-L4, grade 1 anterolisthesis of L4 on L5 with broad-based posterior disc bulge resulting in moderate left and severe right neuroforaminal narrowing with compression of the exiting right L4 nerve root due to neuroforaminal narrowing. No improvement after receiving steroids and analgesics. Ortho Spine consulted. Surgical intervention recommended. Lumbar decompression with bilateral medial facetectomies foraminotomies L3-L4 and L4-L5 with spinal fusion performed by Dr. Blandon 05/18/19. Did well postoperatively. (2) History of TIA (transient ischemic attack): Clopidogrel held for lumbar surgery. Resume in 1 week. Continue statin. (3) Hypertension: Continue HCTZ and losartan. (4) GERD (gastroesophageal reflux disease): Continue PPI. (5) Hypothyroidism: Continue levothyroxine. (6) Hyperlipidemia: Continue atorvastatin. (7) DVT prophylaxis: Initially received SQ enoxaparin- held for surgery. TEDS / SCD's postop. Ambulating. (8) Discharge planning issues: Needs skilled care before returning to independent living. Arrangements being made for transfer to [facility]. Medical follow-up with Dr. Webster about 1 week after DC from [place]. Orthopedics follow-up with Dr. Blandon in about 2 weeks. Total Time Total Time Spent Total Time Spent (In Minutes): 50 Discharge Plan Discharge Items Patient Disposition[facility] Reason For Visit: severe back pain Discharge Diagnosis: right lumbar radiculopathy Condition on Discharge: Good Activity: As commented below Non-emergency contact: Primary Care Provider, Hospitalist and Surgeon Call non-emergency contact if: you have any medication questions, your symptoms worsen and your temperature is above 101 Follow-up/Referrals: Chandana Blandon DO [Surgeon] - (Please call his office to arrange for postop check in 2 weeks.) Sancho Webster MD [Primary Care Provider] - 05/23/19 12:45 pm (Please arrange for appointment 1 week after discharge from [place].) Diet: Heart Healthy Addtl Attending Provider Instructions: ACTIVITY RECOMMENDATIONS: SELF CARE INSTRUCTIONS AFTER THORACIC/LUMBAR FUSIONS 1. You may walk to your tolerance. It is good exercise for your legs and back. Expect some back and intermittent leg aches and pains. 2. You may perform "counter-top" level activities (make a sandwich, beulah with a project, etc.). 3. No bending or lifting of more than 10 pounds or back twisting of any nature (roll like a log when turning in bed). 4. You may ride in a car for 20-30 minutes at a time. No driving until after your first visit with your doctor. 5. Frequent changes of position and restricting sitting to 30 minutes at a time will help limit the amount of back spasms and stiffness you may experience. 6. You may discontinue the use of ambulatory aids (cane, crutches, etc.) once your strength and confidence allow. 7. You may quality coordinator the shower and let water strike your incision when you arrive home at least once daily. Do not take a tub bath, sit in a hot tub or go into a swimming pool until after your first recheck in the office. SPECIAL CARE INSTRUCTIONS: VERY IMPORTANT TO READ AND REVIEW A. Your surgical incision has been closed with a cosmetic suture under the skin that will dissolve in about 6 weeks. In 14 days, you can use a pair of clean scissors and cut the suture that is left outside of the skin at the ends of your incision. 1. The small skin tapes can be removed 7 days after surgery if they have not fallen off by that point. 2. You may keep the wound open to air as much as possible to promote healing after post-op day number 5 unless told otherwise by your doctor. 3. If you think the wound looks like it is becoming infected (redness or worsening drainage) and/or you are experiencing fever, chill or worsening back pain and muscle spasms, contact the office so that we may evaluate you as soon as possible. B. Complications are uncommon, but please contact us if you have any signs or symptoms of: 1. wound infection (fever higher than 102.5 degrees F, redness, separation of wound, drainage, or increasing pain from the incision) 2. blood clots in legs (pain, swelling, redness and warmth in legs) 3. urinary tract infection (fever higher than 102.5 degrees F, burning upon urination or increased frequency of urination) 4. nerve problems (inability to walk on your toes or heels, numbness, loss of bowel or bladder control) 5. any other symptoms that concern you C. Please call the office at if you have any concerns or questions about your operation or recovery. D. No smoking! Smoking drastically decreases the chance of a solid fusion. E. Do not take any anti-inflammatory medications (Indocin, Advil, Motrin, Aspirin, Naprosyn, etc.) as these may inhibit the chance of a solid fusion. Tylenol is okay to take for pain. MANAGING PAIN AFTER SPINAL SURGERY 1. Narcotic medication is intended for short-term use and will be provided for surgical pain. Surgical pain usually lasts for a period of 4-6 weeks. Narcotic medication includes Percocet, Vicodin, Darvocet, Tylenol #3 or Lortab. 2. Longer-term pain is more appropriately treated with non-narcotic medication such as Tylenol ES. 3. Muscle spasm is not appropriately treated with narcotics. Muscle relaxers such as Soma, Flexeril or Skelaxin can be used along with Tylenol ES. 4. Remember that we all live with some "aches and pains". This is not unusual or uncommon after an injury or as we get older. a. Back pain is expected and may include muscle spasms for 4 to 6 weeks after surgery. The pain should gradually improve. If the pain worsens for no apparent reason, please contact the office. b. Intermittent leg pain may also be experienced and should not be concerned about unless it worsens for no apparent reason. If so, please contact the office. 5. We will provide appropriate medication within the normal guidelines of their prescribed use. We will also be very cautious and aware of potential abuse and extended duration of patients' medication needs. a. Pain medications are for your comfort and to assist with sleep and rest so that the tissue can heal. They are not provided in order to return to normal activity and should not be used through the day. To do so or worsening pain at night can result from ongoing tissue damage and development of tolerance to the prescribed medicine. 6. Please allow 2-3 days to process refills. Prescriptions will not be mailed but must be picked up at the office. FOLLOW UP VISIT: Keep your scheduled follow-up appointment. Any questions, please call the office at . MEDICAL INSTRUCTIONS: DVT PROPHYLAXIS: TEDS and SCD's until ambulatory DELIRIUM PRECAUTIONS: try to avoid narcotics and medications with anticholinergic side effects FALL PRECAUTIONS Hold clopidogrel (Plavix) for 1 week, then resume. Consider tapering gabapentin (Neurontin). Thank you for receiving this patient in transfer. Please call if you have any questions. Alfred Umang Pending Studies at Discharge: No Stand-Alone Forms: [facility] Skilled Items Patient informed of condition?: Yes DNR: No Discharge Level of Care: Skilled Communicable Disease: No Discharge Prognosis: Improving Lines: None Urinary Catheter: No Medications and DC Order Prescriptions: New polyethylene glycol 3350 [Miralax] 17 gram Powder In Packet 17 g PO DAILY PRN (Reason: constipation) Qty: 30 RF: 0 docusate sodium 100 mg Capsule 100 mg PO BID 30 Days Qty: 60 RF: 0 acetaminophen 500 mg tablet 1,000 mg PO Q8H PRN (Reason: fever or pain) Qty: 60 RF: 0 lorazepam 0.5 mg tablet 0.5 mg PO DAILY PRN (Reason: Anxiety) Qty: 3 RF: 0 Continued losartan 50 mg tablet 50 mg PO QAM RF: 0 levothyroxine 137 mcg tablet 137 mcg PO QAM RF: 0 atorvastatin 10 mg tablet 10 mg PO Q2D@2100 RF: 0 pantoprazole 20 mg tablet,delayed release (DR/EC) 20 mg PO QAM RF: 0 amitriptyline 25 mg tablet 25 mg PO HS RF: 0 gabapentin 300 mg capsule 300 mg PO HS RF: 0 gabapentin 100 mg capsule 200 mg PO QAM RF: 0 fluticasone propionate 50 mcg/actuation spray,suspension 2 spray INTRANASAL HS RF: 0 hydrochlorothiazide 12.5 mg tablet 12.5 mg PO QAM RF: 0 clopidogrel 75 mg tablet 75 mg PO QAM Qty: 0 RF: 0 Discontinued prednisone 10 mg tablet 10 mg PO UD RF: 0 Admission Data Admit Date/Time: 05/16/19 12:52 Attending Provider: Alfred Heck Admit Provider: Ophelia Jarrett Primary Care Provider: Sancho Webster I. Other Providers: Diana Faustin ; Diann Dyer ; Ophelia Jarrett ; Chandana Blandon
--- NOTE | 2019-05-21 10:59 | Communication Note ---
Date of Service: May 21, 2019 Dr. Betancur will be attending physician at [facility]. He was given verbal report.
== END 2019-05-21 14:24 | DRG 455 ==
LOC: ED 09:21 → SUATTDRO 12:52 → 3W 12:52

== ENCOUNTER 2019-11-08 10:55 | Inpatient (IN) ==
[2019-11-08] MEDS ORDERED: ONDANSETRON INJ 2 MG/ML 2 ML VIAL IV PRN (15:08)
[2019-11-08] MEDS ORDERED: LORazepam 1 MG/2 ML VIAL IV PRN (15:08)
[2019-11-08] MEDS ORDERED: ONDANSETRON 4 MG OD TAB PO PRN (15:08)
[2019-11-08] MEDS ORDERED: PROMETHAZINE HCL 12.5 MG in SODIUM CHLORIDE 0.9% 50 ML IV PRN (15:08)
[2019-11-08] MEDS ORDERED: METOCLOPRAMIDE HCL INJ 5 MG/ML 2 ML VIAL IV PRN (15:08)
[2019-11-08 15:32] LABS: Basophils # (auto) 0.01 K/uL (0-0.2); Basophils % (auto) 0.1 %; Eosinophils # (auto) 0.01 K/uL (0-0.5); Eosinophils % (auto) 0.1 %; Hematocrit (blood only) 38.8 % (37-47); Hemoglobin 12.5 g/dL (12.0-16.0); Immature Granulocytes # (auto) 0.03 K/uL (0.00-0.02); Immature Granulocytes % (auto) 0.3 %; Lymphocytes # (auto) 1.53 K/uL (1.2-3.4); Lymphocytes % (auto) 14.8 %; Mean Corpuscular Hemoglobin 27.2 pg (25-34); Mean Corpuscular Hgb Conc 32.2 g/dL (32-36); Mean Corpuscular Volume 84.5 fL (80-100); Mean Platelet Volume 8.2 fL (7.4-10.4); Monocytes # (auto) 0.87 K/uL (0.11-0.59); Monocytes % (auto) 8.4 %; Neutrophils # (auto) 7.86 K/uL (1.4-6.5); Neutrophils % (auto) 76.3 %; Platelet Count 138 K/uL (130-400); RDW Coefficient of Variation 18.2 % (11.5-14.5); RDW Standard Deviation 56.1 fL (36.4-46.3); Red Blood Count 4.59 M/uL (4.2-5.4); White Blood Count 10.31 K/uL (4.8-10.8)
[2019-11-08] MEDS: TRAMADOL HCL 50 MG TABLET PO PRN ×2 (15:36→22:04)
[2019-11-08 15:49] LABS: Albumin Level 3.7 gm/dl (3.4-5.0); BUN Creatinine Ratio 20.5 (10-20); Calcium 8.8 mg/dl (8.5-10.1); Creatinine Clr Calc Pharmacy 45.1 ml/min; Est GFR (Non-African American) 59.5; Potassium 3.3 mmol/L (3.5-5.1)
[2019-11-08 15:52] LABS: Albumin Globulin Ratio 1.1 (0.9-2); Bilirubin,Total 0.6 mg/dl (0.2-1); Globulin 3.3 gm/dl (2.5-4.0)
[2019-11-08] MEDS ORDERED: POTASSIUM CHLORIDE 20 MEQ TABCR PO STA (17:10)
[2019-11-08] MEDS ORDERED: LORazepam 0.5 MG TAB PO PRN (17:17)
--- NOTE | 2019-11-08 17:27 | Consultation ---
Date of Consultation November 08, 2019 Assessment & Plan (1) Lumbar disc herniation with radiculopathy: (2) Intractable back pain: This is an 84-year-old female who has significant past medical history of HTN, HLD, history of TIA, hypothyroidism, GERD, anxiety, chronic low back pain, history of migraine who is undergoing active lumbar procedure tomorrow, 11/09/[address] Blandon. MR Lumbar Spine revealed: Large herniated disc arising from the L3-4 disc space level and extending superiorly, with marked posterior displacement of the thecal sac as described above. The patient has had an interbody fusion at L4-5. Small disc protrusion at L2-3. pt admitted to med/surg activity and pain management per ortho dvt prophylaxis per ortho obtain ECG (pt with known LBBB), CXR for pre op eval Pt able to perform 4 mets of activity with out CP or SOB Labs reviewed, K replaced (3) Hypokalemia: replace with 40meq KCL x 1 now repeat in am. (4) Hypertension: Hold HCTZ and losartan resume post operatively when able (5) Hyperlipidemia: continue statin (6) History of TIA (transient ischemic attack): continue statin Plavix has been on hold for 5 days continue to hold, resume when pt achieves adequate hemostasis per Ortho (7) Hypothyroidism: continue levothyroxine (8) GERD (gastroesophageal reflux disease): continue PPI (9) DVT prophylaxis: SCD/TEDS due to lumbar procedure in a.m. Disposition: per primary Follow up: Dr. Webster upon discharge Pt was see and examined in collaboration with Dr. Harrison, please see addendum Thank you for this consultation. We will follow the patient with you during their hospital stay. You can reach a member of the [facility] Hospitalist Team 06/10 via pager @ [phone]. Supervising Physician Co-Signing Physician Notes I saw this patient with the physician hearing and speech assistant, I participated in the history, physical, review of systems, and physical exam. I reviewed the medications with the patient and the physician hearing and speech assistant and helped reconcile the medications. I helped take a detailed family and social history as well. I formulated the assessment and plan personally with the physician hearing and speech assistant and went over it with the patient. Physical Exam Gen-AAO x 3, NAD, Afebrile Head-NCAT, EOMI, PERRLA, Anicteric Sclera, No Posterior Pharyngeal Erythema Neck-Supple, No JVD, No Thyromegaly, No Masses, No LAD, No Bruits Lungs-Clear to Auscultation Bilaterally, No Rales, No Rhonchi, No Wheezing, No Crepitus Chest-No S4, +S1, +S2, No S3, No Murmurs, No Rubs, No Gallops, No Ectopy Abdomen-Soft, Bowel Sounds Present, Non Tender, Non Distended, No Hepatomegaly, No Splenomegaly, No Palpable Masses, No Rebound, No Rigidity, No Guarding Musculoskeletal-Full Range of Motion Bilaterally, No CVAT Extremities-No Cyanosis, No Clubbing, No Edema Nuero-Cranial Nerves II-XII grossly intact, Motor WNL, DTRs WNL, Strength WNL, Non Focal Psych-Normal Mood History of Present Illness Requesting Physician: Dr. Blandon Reason for Consultation: Medical Management Attending Physician: Chandana Blandon, DO History of Present Illness This is an 84-year-old female who has significant past medical history of HTN, HLD, history of TIA, hypothyroidism, GERD, anxiety, chronic low back pain, history of migraine who is undergoing active lumbar procedure tomorrow, 11/09/[address] Blandon. In May 2019 patient underwent L4-5 decompression fusion and tolerated the procedure well. She had been doing well and ambulating without assist device until approximately 3 weeks ago. She developed symptoms for what she thought was, "sciatica." She experienced pain in the lateral hip region radiating down bilateral lower extremities. He also has neuropathy so she states it makes it difficult to determine where symptoms are coming from. She has had a significant decline from baseline over the past 2 weeks and is now ambulating with walker and complains of radiating pain down bilateral lower extremities. Initially treated conservatively with prednisone taper without significant improvement. She underwent MRI of lumbar spine which revealed large herniated disc arising from L3-4 to space level and extending superiorly with markedly displaced thecal sac posteriorly. She was seen and evaluated by LASHELL in Dr. Blandon office today and was referred for direct admission to undergo L3-4 decompression fusion tomorrow. 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 Prior to the last 3 weeks she had otherwise been very active and would be able to ambulate a flight of stairs or 1 city block without any chest pain or shortness of breath. Currently she would not be able to do so secondary to significant lower back discomfort. She has been mostly quarantining since pandemic began. She denies any recent illness, fever, chills, sweats, lightheadedness, dizziness, chest pain, shortness breath, palpitations, orthopnea, nausea, vomiting, diarrhea, abdominal pain, change in bowel or urinary habits. She currently is complaining of bilateral pain from the knee down secondary to compression stockings. She also states she cannot lay flat secondary to severe back pain. Allergies Allergy/AdvReac Type Severity Reaction Status Date / Time aspirin Allergy Unknown HIVES Verified 05/16/19 11:37 ciprofloxacin Allergy Unknown NUMBNESS Verified 05/16/19 11:37 INTENSIFIED IN BOTH FEET fentanyl Allergy Unknown SEE PEOPLE Verified 05/16/19 11:37 AND HEAR VOICES codeine AdvReac Severe Nausea Unverified 05/16/19 11:37 hydromorphone [From Dilaudid] AdvReac Severe Nausea Unverified 05/16/19 11:37 oxycodone [From Percocet] AdvReac Severe Nausea Unverified 05/16/19 11:37 Ethanol Allergy Unknown SEE PEOPLE Uncoded 05/16/19 11:37 AND HEAR VOICES MONOSTAT Allergy Unknown CRAMPS Uncoded 05/16/19 11:37 PROSTIGIMIN Allergy Unknown TONGUE Uncoded 05/16/19 11:37 SWELLS Home Medications Home Medications Medication Instructions Recorded Confirmed Type amitriptyline 25 mg PO HS 05/16/19 11/08/19 History atorvastatin 10 mg PO Q2D@2100 05/16/19 11/08/19 History fluticasone propionate 2 spray INTRANASAL HS 05/16/19 11/08/19 History gabapentin 200 mg PO QAM 05/16/19 11/08/19 History gabapentin 300 mg PO HS 05/16/19 11/08/19 History hydrochlorothiazide 12.5 mg PO QAM 05/16/19 11/08/19 History levothyroxine 137 mcg PO QAM 05/16/19 11/08/19 History losartan 50 mg PO QAM 05/16/19 11/08/19 History pantoprazole 20 mg PO QAM 05/16/19 11/08/19 History acetaminophen 1,000 mg PO Q8H PRN #60 tab 05/21/19 11/08/19 Rx clopidogrel 75 mg PO QAM #0 tab 05/21/19 11/08/19 Rx lorazepam 0.5 mg PO DAILY PRN #3 tab 05/21/19 11/08/19 Rx polyethylene glycol 3350 [Miralax] 17 g PO DAILY PRN #30 ea 05/21/19 11/08/19 Rx Patient History Medical History Chronic back pain GERD (gastroesophageal reflux disease) History of ankle fracture History of Chanell thyroiditis History of TIA (transient ischemic attack) Hyperlipidemia Hypertension Hypothyroidism Left bundle branch block Osteoarthritis Peripheral neuropathy Postoperative hypothyroidism Rectocele Surgical History (Updated 11/08/19 @ 16:54 by Nicolle Appiah PA-C) H/O partial mastectomy H/O thyroidectomy H/O tubal ligation History of appendectomy History of bilateral knee replacement History of carpal tunnel surgery History of cataract surgery History of cholecystectomy History of lumbar surgery 05/2019 l4-5 decomp/fusion History of total abdominal hysterectomy Family History Sister Breast cancer Mother Heart disease Social History Smoking Status: Never smoker Second Hand Exposure: No; Hx Alcohol Use: No Hx Substance Use: No Preferred Language: Maltese Communication Ability: Effective Transportation Refrigeration Technician Required: No Beliefs That Will Affect Care: None marital status: Current Living Situation: Spouse Other Information That Helps Us Care for You: No Feels Safe at Home: Yes Safety Concerns: Feels Safe At This Time Review of Systems Review of Systems: All systems reviewed & are unremarkable except as noted in HPI & below Physical Exam Physical Exam: Constitutional: WD/WN, vitals as above, NAD, sitting up in bed, pleasant, conversing easily Head: Normocephalic, Atraumatic Eyes: PERRL, conjunctivae normal, anicteric sclerae ENMT: external ear and nose normal, oropharynx normal Neck: trachea midline, no thyromegaly normal visual inspection Respiratory: normal respiratory effort, lungs clear to auscultation, no wheeze, rales, rhonchi. Normal insp/exp effort, no accessory muscle use Cardiovascular: RRR, no murmur, no edema Vessels: no JVD or carotid bruit Chest: normal inspection of chest Abdomen: normal bowel sounds, soft, nontender, no hepatosplenomegaly Musculoskeletal: no cyanosis or clubbing, extremities motor strength 5/5 Skin: no rashes, warm and dry normal turgor Neurologic: PERRL, EOMI, accommodation nl, no face palsy, no dysarthria CN's I I-XI intact bilaterally and moves all extremities Psychiatric: A+Ox3, euthymic affect Lymphatic: no cervical or axillary lymphadenopathy : deferred Results & Data ([facility]) Vital Signs (Past 12 Hours) Vital Signs Temp Pulse Resp BP Pulse Ox 11/08/19 16:25 36.7 C 77 16 136/67 96 11/08/19 14:00 37.0 C 18 136/71 97 Laboratory Results Short CBC 11/08/19 Range/Units 15:21 WBC 10.31 (4.8-10.8) K/uL Hgb 12.5 (12.0-16.0) g/dL Hct 38.8 (37-47) % Plt Count 138 (130-400) K/uL BMP 11/08/19 15:21 Sodium 139 Potassium 3.3 L Chloride 104 Carbon Dioxide 28 BUN 18 Creatinine 0.88 Glucose 107 H Calcium 8.8 Liver Function 11/08/19 Range/Units 15:21 Total Bilirubin 0.6 (0.2-1) mg/dl AST 15 (15-37) U/L ALT 18 (12-78) U/L Alkaline Phosphatase 80 (45-117) U/L Albumin 3.7 (3.4-5.0) gm/dl Diagnostic Findings MRI L Spine: 11/03/19 FINDINGS Sagittal images revealedan anterior interbody fusion at L4-5 where there is grade 1 anterolisthesis, stable. There is normal alignment of the rest of vertebral bodies. There is disc space narrowing at L2-3 and L3-4. At L5-S1, the canal is widely patent as are the neural foramina. Facet hypertrophy is seen. At L4-5, interbody fusion with good position of the cage in the in disc space. There has been a decompression at this level. The canal is widely patent none. Mild narrowing of the neural foramina. No definite encroachment upon the exiting L4 nerve roots. At L3-4, there is evidence of a large disc herniation, extending superiorly almost to the superior endplate of L3. The distal this large herniated disc is causing significant posterior displacement of the thecal sac. There is narrowing of the lateral recesses and there is extension of the disc into the proximal aspect of the right neural foramen. At L2-3, there is a broad-based disc protrusion. Mild posterior element hypertrophy with a triangular configuration to the canal. No definite lateral recess or foraminal narrowing. At L1-2, no abnormalities are identified. Visualized portions of the conus is were unremarkable. IMPRESSION IMPRESSION Large herniated disc arising from the L3-4 disc space level and extending superiorly, with marked posterior displacement of the thecal sac as described above. The patient has had an interbody fusion at L4-5. Small disc protrusion at L2-3. Medications Administered Tramadol HCl (Tramadol Hcl 50 Mg Tablet) 50 - 100 mg PO Q4H PRN PRN Reason: Moderate-Severe Pain Stop: 12/08/19 15:07 Last Admin: 11/08/19 15:36 Dose: 100 mg Documented by: [id number]
--- NOTE | 2019-11-08 17:58 | XRay Report ---
XR chest 1V portable HISTORY: Preop. COMPARISON: None. FINDINGS: The lungs are clear. Cardiac silhouette is normal in size. No pleural effusions. No pneumot horax. Surgical clips noted within the right axilla. Advanced degenerative changes within the left sh oulder. IMPRESSION: No acute process. ACT 112: Negative or not required by law. Electronically signed by: Yared Sweet M.D. 11/08/2019 5:57 PM
[2019-11-08] MEDS: AMITRIPTYLINE HCL 25 MG TAB PO SCH (21:07)
[2019-11-08] MEDS: ATORVASTATIN 10 MG TAB PO SCH (21:07)
[2019-11-08] MEDS: FLUTICASONE PROPIONATE NA SPR 16 GM BTL SCH (21:08)
[2019-11-08] MEDS: GABAPENTIN 300 MG CAP PO SCH (21:08)
[2019-11-08] MEDS: LORazepam 1 MG TAB PO PRN (22:04)
[2019-11-09] MEDS: HYDROCODONE/ACETAMOPHEN 5/325MG TAB PO PRN ×2 (00:55→05:47)
[2019-11-09] MEDS: LEVOTHYROXINE SODIUM 137 MCG TABLET PO SCH (05:44)
[2019-11-09] MEDS ORDERED: CEFAZOLIN 2000MG 2,000 MG/15 ML SYR IV SCH (06:00)
[2019-11-09 06:35] LABS: Hematocrit (blood only) 37.6 % (37-47); Hemoglobin 11.9 g/dL (12.0-16.0); Mean Corpuscular Hgb Conc 31.6 g/dL (32-36); Mean Corpuscular Volume 85.3 fL (80-100); Mean Platelet Volume 8.2 fL (7.4-10.4); Platelet Count 129 K/uL (130-400); RDW Coefficient of Variation 18.5 % (11.5-14.5); RDW Standard Deviation 57.5 fL (36.4-46.3); Red Blood Count 4.41 M/uL (4.2-5.4); White Blood Count 8.53 K/uL (4.8-10.8)
[2019-11-09 07:14] LABS: Calcium 8.5 mg/dl (8.5-10.1); Creatinine Clr Calc Pharmacy 46.7 ml/min; Est GFR (African American) 71.9; Potassium 3.9 mmol/L (3.5-5.1)
[2019-11-09] MEDS: GABAPENTIN 100 MG CAP PO SCH (08:02)
[2019-11-09] MEDS: PANTOprazole 40 MG TAB PO SCH (08:02)
--- NOTE | 2019-11-09 08:50 | Hospitalist Progress Note ---
Date of Service November 09, 2019 Assessment & Plan (1) Lumbar disc herniation with radiculopathy: (2) Intractable back pain: This is an 84-year-old female who has significant past medical history of HTN, HLD, history of TIA, hypothyroidism, GERD, anxiety, chronic low back pain, history of migraine who is undergoing lumbar procedure 11/09/[address] Blandon. Pt able to perform 4 mets of activity with out CP or SOB. Pre-op EKG with chronic LBBB. Pre-op CXR unremarkable. Pre-op labs reviewed. MR Lumbar Spine revealed: Large herniated disc arising from the L3-4 disc space level and extending superiorly, with marked posterior displacement of the thecal sac as described above. The patient has had an interbody fusion at L4-5. Small disc protrusion at L2-3. Activity and pain management per ortho DVT prophylaxis per ortho Incentive spirometry Monitor H&H for acute blood loss anemia after procedure (3) Hypokalemia: 11/08/2019 K was 3.3 and was replaced 11/09/2019 K normalized at 3.9 (4) Hypertension: Stable Hold HCTZ and losartan today the morning of procedure Plan to resume post operatively when able (5) Hyperlipidemia: Continue statin (6) History of TIA (transient ischemic attack): Continue statin Plavix has been on hold since 11/03/2019 Continue to hold Plavix, resume per Ortho (7) Hypothyroidism: Continue levothyroxine (8) GERD (gastroesophageal reflux disease): Continue PPI (9) DVT prophylaxis: SCD/TEDS due to lumbar procedure in a.m. Disposition: per primary service Follow up: Dr. Webster upon discharge Pt was see and examined in collaboration with Dr. Strickland, please see addendum Thank you for this consultation. We will follow the patient with you during their hospital stay. You can reach a member of the [facility] Hospitalist Team 06/10 via pager @ [phone]. Admission and Anticipated Discharge Date Admission Date: November 08, 2019 Supervising Physician Co-Signing Physician Notes Patient seen and examined by me, care coordinated with BRIDGET Servin, please refer to her note above for detail. This is an 84 y/o female with hx of HTN, HLD, history of TIA, hypothyroidism, GERD, anxiety, chronic low back pain, history of migraine who is undergoing lumbar procedure today, 11/09/[address] Blandon. Pt able to perform 4 mets of activity with out CP or SOB. Pre-op EKG with chronic LBBB. Pre-op CXR unremarkable. Pre-op labs reviewed. MR Lumbar Spine revealed: Large herniated disc arising from the L3-4 disc space level and extending superiorly, with marked posterior displacement of the thecal sac as described above. The patient has had an interbody fusion at L4-5. Small disc protrusion at L2-3. Currently patient is sitting up in a chair, in no acute distress. She continues to complain of some lower back and lower extremity discomfort. She is breathing comfortably on room air, lungs are clear to auscultation bilaterally, without any wheezing rhonchi or crackles. She is alert and oriented and answering questions appropriately. Heart sounds regular. Abdomen is soft, nontender, nondistended. Skin is warm dry, well-perfused. She is generally able to move her extremities. We will continue to follow after surgery. Monitor vital signs, blood pressure, also monitor for blood loss anemia. Encourage incentive spirometry. Tato Strickland MD Subjective Pt seen and examined. Lying in bed. Reports back pain present with radiation down legs but is more tolerable with oral pain medicine she has been receiving. Pt has been NPO since midnight in preparation for planned lumbar procedure today by Dr Blandon. Reports chronic paresthesias bilateral extremities secondary to neuropathy. Denies fever/chills, diaphoresis, N/V/D/C, [place], dizziness, neck pain, CP, SOB, palpitations, cough, sore throat, abdominal pain, extremity edema, rashes, urinary symptoms. Review of Systems Review of Systems: All systems reviewed & are unremarkable except as noted in HPI & below Physical Exam Physical Exam: General: no distress, WDWN Head: normocephalic, atraumatic Eyes: conjunctiva non-injected, anicteric ENT: normal inspection external ears, nose, mucous membranes moist Neck: supple, trachea midline Lungs: clear, no respiratory distress, no wheezing/rhonchi/rales CV: RRR, no murmur, no pretibial edema Abd: normal BS, soft, non-tender Ext: no cyanosis, no calf tenderness; pedal pushes and pulls intact bilaterally Neuro: A&O x 3, no focal deficits noted, normal affect Skin: warm, dry Results & Data Results & Data ([facility]) Vital Signs (Past 12 Hours) Vital Signs Temp Pulse Resp BP Pulse Ox 11/09/19 06:30 36.5 C 74 18 145/75 H 94 11/08/19 23:32 36.5 C 75 20 146/72 H 93 Laboratory Results Short CBC 11/08/19 11/09/19 Range/Units 15:21 05:35 WBC 10.31 8.53 (4.8-10.8) K/uL Hgb 12.5 11.9 L (12.0-16.0) g/dL Hct 38.8 37.6 (37-47) % Plt Count 138 129 L (130-400) K/uL BMP 11/08/19 11/09/19 15:21 05:35 Sodium 139 139 Potassium 3.3 L 3.9 D Chloride 104 106 Carbon Dioxide 28 27 BUN 18 24 H Creatinine 0.88 0.85 Glucose 107 H 98 Calcium 8.8 8.5 Liver Function 11/08/19 Range/Units 15:21 Total Bilirubin 0.6 (0.2-1) mg/dl AST 15 (15-37) U/L ALT 18 (12-78) U/L Alkaline Phosphatase 80 (45-117) U/L Albumin 3.7 (3.4-5.0) gm/dl
[2019-11-09] MEDS ORDERED: LACTATED RINGER'S 1,000 ML IV SCH (09:00)
--- NOTE | 2019-11-09 09:20 | Anesthesiology Consultation ---
Date of Service November 09, 2019 Assessment & Plan (1) Encounter for pre-operative examination: Chart Review Chart Review: Acceptable Risk for Surgery and Patient NOT seen in Pre Admission Testing Consults Requested none ASA ASA3 Proposed Anesthesia Anesthesia Type: General Risk / Benefits Reviewed With: PT / POA / Parent / Guardian, Accepts Plan and Informed Consent Obtained History Surgery Operation Date: 11/09/19 11:25 Proposed Procedures p L3-L4 Decompression and Fusion with Instrumentation - Chandana Blandon, Height/Weight Height: 5 ft 5 in Weight: 70.1 kg Allergies Allergy/AdvReac Type Severity Reaction Status Date / Time aspirin Allergy Unknown HIVES Verified 11/09/19 11:15 ciprofloxacin AdvReac Intermediate NUMBNESS Verified 11/09/19 11:39 INTENSIFIED IN BOTH FEET codeine AdvReac Intermediate Nausea Verified 11/09/19 11:39 hydromorphone [From Dilaudid] AdvReac Intermediate Nausea Verified 11/09/19 11:39 oxycodone [From Percocet] AdvReac Intermediate Nausea Verified 11/09/19 11:39 fentanyl AdvReac Unknown SEE PEOPLE Verified 11/09/19 11:39 AND HEAR VOICES Ethanol Allergy Unknown SEE PEOPLE Uncoded 05/16/19 11:37 AND HEAR VOICES MONOSTAT Allergy Unknown CRAMPS Uncoded 05/16/19 11:37 PROSTIGIMIN Allergy Unknown TONGUE Uncoded 05/16/19 11:37 SWELLS Medications Home Medications Medication Instructions Recorded Confirmed Last Taken amitriptyline 25 mg PO HS 05/16/19 11/08/19 11/07/19 21:00 atorvastatin 10 mg PO Q2D@2100 05/16/19 11/08/19 11/07/19 21:00 fluticasone propionate 2 spray INTRANASAL 05/16/19 11/08/19 11/07/19 21:00 gabapentin 200 mg PO QAM 05/16/19 11/08/19 11/08/19 09:00 gabapentin 300 mg PO 05/16/19 11/08/19 11/07/19 21:00 hydrochlorothiazide 12.5 mg PO QAM 05/16/19 11/08/19 11/08/19 09:00 levothyroxine 137 mcg PO QAM 05/16/19 11/08/19 11/08/19 09:00 losartan 50 mg PO QAM 05/16/19 11/08/19 11/08/19 09:00 pantoprazole 20 mg PO QAM 05/16/19 11/08/19 11/08/19 09:00 acetaminophen 1,000 mg PO Q8H PRN #60 tab 05/21/19 11/08/19 Unknown clopidogrel 75 mg PO QAM #0 tab 05/21/19 11/08/19 11/03/19 09:00 lorazepam 0.5 mg PO DAILY PRN #3 tab 05/21/19 11/08/19 Unknown polyethylene glycol 3350 [Miralax] 17 g PO DAILY PRN #30 ea 05/21/19 11/08/19 Unknown Active Medications Generic Name Dose Route Start Last Admin Trade Name Freq PRN Reason Stop Dose Admin Hydrocodone Bitart/Acetaminophen 1 - 2 tab 11/08/19 15:08 11/09/19 05:47 Hydrocodone/Acetamophen 5/325mg Tab PO 11/22/19 15:07 2 tab Q4H PRN Administration Moderate-Severe Pain Amitriptyline HCl 25 mg 11/08/19 21:00 11/08/19 21:07 Amitriptyline Hcl 25 Mg Tab PO 12/08/19 20:59 25 mg HS MEHUL Administration Atorvastatin Calcium 10 mg 11/08/19 21:00 11/08/19 21:07 Atorvastatin 10 Mg Tab PO 12/08/19 20:59 Not Given Q2D@2100 MEHUL Fluticasone Propionate 2 sprays 11/08/19 21:00 11/08/19 21:08 Fluticasone Propionate Na Spr 16 Gm Btl NA 12/08/19 20:59 2 sprays HS MEHUL Administration Gabapentin 300 mg 11/08/19 21:00 11/08/19 21:08 Gabapentin 300 Mg Cap PO 12/08/19 20:59 300 mg HS MEHUL Administration Gabapentin 200 mg 11/09/19 09:00 11/09/19 08:02 Gabapentin 100 Mg Cap PO 12/09/19 08:59 200 mg QAM MEHUL Administration Lactated Ringer's 1,000 mls @ 80 mls/hr 11/09/19 09:00 11/09/19 09:12 Lr IV 11/09/19 21:29 80 mls/hr .[id number] MEHUL Administration Levothyroxine Sodium 137 mcg 11/09/19 06:30 11/09/19 05:44 Levothyroxine Sodium 137 Mcg Tablet PO 12/09/19 06:29 137 mcg DAILYBB MEHUL Administration Lorazepam 1 mg 11/08/19 15:08 11/08/19 22:04 Lorazepam 1 Mg Tab PO 12/08/19 15:07 1 mg Q6H PRN Administration Anxiety/spasms Pantoprazole Sodium 40 mg 11/09/19 09:00 11/09/19 08:02 Pantoprazole 40 Mg Tab PO 12/09/19 08:59 40 mg QAM MEHUL Administration Tramadol HCl 50 - 100 mg 11/08/19 15:08 11/08/19 22:04 Tramadol Hcl 50 Mg Tablet PO 12/08/19 15:07 100 mg Q4H PRN Administration Moderate-Severe Pain NPO Date Last Intake of Fluids: 11/09/19 Time Last Intake of Fluids: 05:47 Last Intake of Fluids Comment: sip of water with medication Date Last Intake of Solids: 11/08/19 Time Last Intake of Solids: 23:59 Past Medical History Medical History Chronic back pain GERD (gastroesophageal reflux disease) History of ankle fracture History of Chanell thyroiditis History of TIA (transient ischemic attack) Hyperlipidemia Hypertension Hypothyroidism Left bundle branch block Osteoarthritis Peripheral neuropathy Postoperative hypothyroidism Rectocele Spinal stenosis Exercise / Class Metabolic Activity III < 4 Walking/Shop/Light housework Negative for chest pain or shortness of breath. Activity limited by back pain. Past Family History Family History Sister Breast cancer Mother Heart disease Past Surgical History Surgical History H/O partial mastectomy H/O thyroidectomy H/O tubal ligation History of appendectomy History of bilateral knee replacement History of carpal tunnel surgery History of cataract surgery History of cholecystectomy History of lumbar surgery 05/2019 l4-5 decomp/fusion History of total abdominal hysterectomy Past Anesthesia History No Hx of Anesthesia Complications and No Family Hx of Anesthesia Complications History of PONV No Hx of PONV and No Hx of Motion Sickness Social History Smoking Status: Never smoker Hx Alcohol Use: No Hx Substance Use: No substance use type: does not use Review of Systems Negative for chest pain or shortness of breath. Patient denies active symptoms of GERD. Physical Exam Vital Signs Last Vital Signs Temp 36.8 C 11/09/19 11:02 Pulse 75 11/09/19 11:02 Resp 18 11/09/19 11:02 BP 143/65 H 11/09/19 11:02 Pulse Ox 95 11/09/19 11:02 Constitutional not obese ENMT Mouth: + small oral opening; no TMJ abnormality Thyromental Distance: < 3.5 Finger Breadths Mallampati Class: III Mouth / Teeth: 1. Very narrow palate Neck normal visual inspection; neck extension not limited Respiratory normal respiratory effort Auscultation: lungs clear to auscultation bilaterally Cardiovascular Rate/Rhythm: regular rate and regular rhythm Heart Sounds: no murmur Neurologic moves all extremities Motor/Sensory: + sensory deficit (Weakness and pain in legs) Psychiatric Orientation: alert and oriented x 3 Testing Laboratory Results 11/09/19 05:35 11/09/19 05:35 Blood Type A Positive 11/08/19 15:21 Antibody Screen NEGATIVE 11/08/19 15:21 Electrocardiogram Date: 11/09/19 Findings: + NSR @ (68) Left bundle branch block, When compared with ECG of 18-MAY-2019 14:32, No signi ficant change was found Chest X-Ray Date: 11/08/19 Findings: + NAD Other Testing Echocardiogram Date: 05/18/19 EF: 60% LV Function: normal RWMA: + none Other Findings: + LVH (mild) Valvular Disease: + no significant valvular disease
[2019-11-09] MEDS ORDERED: fentaNYL citrate 100 MCG/2 ML VIAL ONE (11:07)
[2019-11-09] MEDS ORDERED: MIDAZOLAM HCL 1 MG/ML 2ML VIAL ONE (11:07)
--- NOTE | 2019-11-09 11:29 | History & Physical Report ---
Date of Service November 09, 2019 Assessment & Plan (1) Lumbar disc herniation with radiculopathy: Admission and Anticipated Discharge Date Admission Date: November 08, 2019 L3-L4 decompression and fusion, hardware removal L4-S1 History of Present Illness Chief Complaint: Back and bilateral leg pain Primary Care Provider: Sancho Webster MD This is an 84-year-old female well-known to me that presents with a marked decline in status over the past several weeks. Patient notes significant back and bilateral leg pain. An MRI was obtained lumbar spine demonstrating severe spinal stenosis L3-4 with acute disc herniation. Secondary to her inability to ambulate and being essentially wheelchair bound we placed her in the hospital for urgent decompression fusion. Allergies Allergy/AdvReac Type Severity Reaction Status Date / Time aspirin Allergy Unknown HIVES Verified 11/09/19 11:15 ciprofloxacin Allergy Unknown NUMBNESS Verified 11/09/19 11:15 INTENSIFIED IN BOTH FEET fentanyl Allergy Unknown SEE PEOPLE Verified 11/09/19 11:15 AND HEAR VOICES codeine AdvReac Severe Nausea Verified 11/09/19 11:15 hydromorphone [From Dilaudid] AdvReac Severe Nausea Verified 11/09/19 11:15 oxycodone [From Percocet] AdvReac Severe Nausea Verified 11/09/19 11:15 Ethanol Allergy Unknown SEE PEOPLE Uncoded 05/16/19 11:37 AND HEAR VOICES MONOSTAT Allergy Unknown CRAMPS Uncoded 05/16/19 11:37 PROSTIGIMIN Allergy Unknown TONGUE Uncoded 05/16/19 11:37 SWELLS Home Medications Home Medications Medication Instructions Recorded Confirmed Type amitriptyline 25 mg PO HS 05/16/19 11/08/19 History atorvastatin 10 mg PO Q2D@2100 05/16/19 11/08/19 History fluticasone propionate 2 spray INTRANASAL HS 05/16/19 11/08/19 History gabapentin 200 mg PO QAM 05/16/19 11/08/19 History gabapentin 300 mg PO HS 05/16/19 11/08/19 History hydrochlorothiazide 12.5 mg PO QAM 05/16/19 11/08/19 History levothyroxine 137 mcg PO QAM 05/16/19 11/08/19 History losartan 50 mg PO QAM 05/16/19 11/08/19 History pantoprazole 20 mg PO QAM 05/16/19 11/08/19 History acetaminophen 1,000 mg PO Q8H PRN #60 tab 05/21/19 11/08/19 Rx clopidogrel 75 mg PO QAM #0 tab 05/21/19 11/08/19 Rx lorazepam 0.5 mg PO DAILY PRN #3 tab 05/21/19 11/08/19 Rx polyethylene glycol 3350 [Miralax] 17 g PO DAILY PRN #30 ea 05/21/19 11/08/19 Rx Past Med/Surg History Medical History Chronic back pain GERD (gastroesophageal reflux disease) History of ankle fracture History of Chanell thyroiditis History of TIA (transient ischemic attack) Hyperlipidemia Hypertension Hypothyroidism Left bundle branch block Osteoarthritis Peripheral neuropathy Postoperative hypothyroidism Rectocele Spinal stenosis Surgical History H/O partial mastectomy H/O thyroidectomy H/O tubal ligation History of appendectomy History of bilateral knee replacement History of carpal tunnel surgery History of cataract surgery History of cholecystectomy History of lumbar surgery 05/2019 l4-5 decomp/fusion History of total abdominal hysterectomy Family History Sister Breast cancer Mother Heart disease Social History Smoking Status: Never smoker Second Hand Exposure: No; Hx Alcohol Use: No Hx Substance Use: No Preferred Language: German Communication Ability: Effective Manager Risk Required: No Beliefs That Will Affect Care: None marital status: Current Living Situation: Spouse Other Information That Helps Us Care for You: No Feels Safe at Home: Yes Safety Concerns: Feels Safe At This Time Physical Exam Physical Exam: Patient is alert and oriented. She has weakness to testing bilateral quadriceps. Heart regular rate and rhythm. Lungs clear to auscultation. Results & Data ([facility]) Vital Signs (Past 12 Hours) Vital Signs Temp Pulse Resp BP Pulse Ox 11/09/19 11:02 36.8 C 75 18 143/65 H 95 11/09/19 10:46 36.6 C 82 16 162/75 H 94 11/09/19 06:30 36.5 C 74 18 145/75 H 94 11/08/19 23:32 36.5 C 75 20 146/72 H 93 Code Status & VTE Plan VTE Prophylaxis Plan VTE Prophylaxis will be ordered: Yes
[2019-11-09] MEDS ORDERED: ONDANSETRON INJ 2 MG/ML 2 ML VIAL IV ONE (11:36)
[2019-11-09] MEDS ORDERED: BACITRACIN INJ 50,000 UNIT VIAL ONE (11:45)
[2019-11-09] MEDS ORDERED: BUPIVACAINE/EPINEPHRINE 0.25% 1:200,000 30 ML VIAL ONE (11:46)
--- NOTE | 2019-11-09 11:48 | Electrocardiogram Report ---
Test Reason : Blood Pressure : / mmHG Vent. Rate : 068 BPM Atrial Rate : 072 BPM P-R Int : 000 ms QRS Dur : 142 ms QT Int : 438 ms P-R-T Axes : 044 -09 151 degrees QTc Int : 465 ms Normal sinus rhythm Left bundle branch block Abnormal ECG When compared with ECG of 18-MAY-2019 14:32, No significant change was found Confirmed by Juan Carlos Rizo ([id number]) on 11/09/2019 11:47:58 AM Referred By: Chandana Blandon Confirmed By:Juan Carlos Rizo
[2019-11-09] MEDS ORDERED: ONDANSETRON INJ 2 MG/ML 2 ML VIAL IV PRN ×2 (11:49→15:45)
[2019-11-09] MEDS ORDERED: ePHEDrine sulfate 50 MG/ML AMP IV PRN (11:49)
[2019-11-09] MEDS ORDERED: ATROPINE SULFATE 0.1 MG/ML 10ML SYR IV PRN (11:49)
[2019-11-09] MEDS ORDERED: fentaNYL citrate 100 MCG/2 ML VIAL IV PRN (11:49)
[2019-11-09] MEDS ORDERED: MoRPHine SULFATE 10 MG/ML CARP/VIAL IV PRN (12:01)
[2019-11-09] MEDS ORDERED: MoRPHine SULFATE PF 1 MG/ML 10 ML AMP/VIAL ONE (12:06)
[2019-11-09] MEDS ORDERED: FLOSEAL HEMOSTATIC MATRIX 10ML TOP ONE (12:33)
[2019-11-09] MEDS ORDERED: SUGAMMADEX SODIUM 200 MG/2 ML VIAL IV ONE (12:50)
[2019-11-09] MEDS ORDERED: PHENYLEPHRINE 100MCG/ML 5ML SYR ONE (12:56)
[2019-11-09] MEDS ORDERED: ONDANSETRON INJ 2 MG/ML 2 ML VIAL ONE (12:56)
[2019-11-09] MEDS ORDERED: ROCURONIUM BROMIDE 10 MG/ML 5 ML VIAL IV ONE (12:56)
[2019-11-09] MEDS ORDERED: DEXAMETHASONE SOD INJ 4 MG/ML VIAL ONE (12:56)
[2019-11-09] MEDS ORDERED: PROPOFOL IV EMULSION 10 MG/ML 20 ML VIAL IV ONE (12:56)
[2019-11-09] MEDS ORDERED: LIDOCAINE HCL 2% 2 ML VIAL/AMP(20MG/ML) INFIL ONE (12:56)
[2019-11-09] MEDS ORDERED: LARYING-O-JET KIT (LTA) ONE (12:56)
[2019-11-09] MEDS ORDERED: ePHEDrine sulfate 50 MG/ML SYR ONE (12:56)
--- NOTE | 2019-11-09 14:12 | Operative Report ---
Post Operative Report Pre & Post Diagnosis Operation Date: 11/09/19 11:25 Pre-Op Diagnosis: Lumbar disc herniation with radiculopathy Post-Op Diagnosis: Lumbar disc herniation with radiculopathy I identified the patient and participated in the time-out.: Yes Procedure Actual procedure #1 removal of posterior instrumentation L4-5. #2 exploration of fusion L4-5 per #3 lumbar decompression with bilateral medial facetectomies and foraminotomies L2-3 and L3-4. #41. posterior spinal fusion L3-4 per #5 placement posterior instrumentation L3-4. #6 interbody fusion L3-4 per #7 placement peek cage 10 x 22 mm at L3-4. #8 placement of locally harvested morselized autograft in the posterior gutters. 9 placement infuse collagen sponge, master graft and posterior gutters ostial amp interbody space. Operation Date: 11/09/19 11:25 Surgeon Chandana Blandon, Senior Windows Systems Administrator Portia Avery Estimated Blood Loss 150 Findings Consistent with Post-Op Diagnosis Specimens None Indications Patient was admitted to hospital severe bilateral leg pain after MRI demonstrates massive disc herniation at L3-4 with cephalad migration. We schedule urgent decompression fusion. Description of Procedure Patient was met with properly case discussed all questions addressed by them and patient was taken back to op suite underwent an patient placed in a prone position on the Jonas table on top of the Domenico frame. All bony prominences well-padded eyes inspected to ensure no external pressure placed upon the. This point the lumbar spine was prepped and draped in normal sterile fashion. Sharp dissection with the assistance of Bovie cautery was performed down to and exposing the lamina and transverse processes of L3 and instrumentation at L4 and L5 bilaterally. Then proceeded to remove the hardware at L4-L5 exploring the fusion mass noting it to be maturing but not completely intact. And then performed complete laminectomy of L3 partial laminectomy of L2 including bilateral medial facetectomies and foraminotomies. Pedicle screw was then placed in L3-L4-L5 bilaterally with assistance of fluoroscopy and the proper sized jonny placed. By way of a transforaminal approach on the right a complete discectomy was performed endplates coated to subcortical being bone and a 10 x 22 mm peek cage with osteo-bone graft tapped position. I also removed massive amounts of disc material posterior to the body of L3. This assisted in decompression. There was marked thinning of the dura on the left subarticular region. I elected to place a small piece of DuraGen over the thinning. I did place some DuraSeal over the dura at the end of the procedure. Transverse processes of L3 and L4 were then burred to subcortical bleeding bone. Infuse collagen sponge and master graft was placed in the posterior gutters. 15 round KEVIN drain inserted. Incision was closed with 1 Vicryl the fascia 2-0 Vicryl subcutaneously and 4 Monocryl for final skin closure. Steri-Strip sterile dressings placed. Patient waken taken PACU stable addition. Please note spinal cord monitoring was utilized at the procedure no changes noted. Lastly Portia Avery was present at the entire surgery involved the patient positioning complex portions of the surgery and final skin closure. I attest to the content of the Intraoperative Record and any orders documented therein. Any exceptions are noted below.
--- NOTE | 2019-11-09 14:31 | Fluoroscopy Report ---
INTRAOPERATIVE RADIOGRAPHS CLINICAL HISTORY: L3-L5 spinal fusion. Fluoroscopy time: 10 seconds. FINDINGS: 2 spot fluoroscopic views of the lumbar spine are obtained. There is been discectomy at L3- L4 and L4-L5 with laminectomy and diffuse tear fusion from L3-L5. Interpedicular screws are present a t all levels. There is minimal anterolisthesis at L4-L5. The orthopedic hardware appears intact. IMPRESSION: Intraoperative images from L3-L5 spinal fusion as above. Electronically signed by: Dayton Laio M.D. 11/09/2019 2:30 PM
--- NOTE | 2019-11-09 15:13 | Anesthesiology Progress Note ---
Date of Service November 09, 2019 Anesthesia Post Procedure Vital Signs Vital Signs: Temp Pulse Pulse Resp BP BP Pulse Ox 11/09/19 15:05 96 H 13 144/74 H 97 11/09/19 14:55 105 H 13 150/82 H 94 11/09/19 14:45 103 H 14 150/70 H 100 11/09/19 14:35 101 H 12 151/74 H 100 11/09/19 14:26 36.9 C 103 H 14 153/69 H 99 11/09/19 11:02 36.8 C 75 18 143/65 H 95 11/09/19 10:46 36.6 C 82 16 162/75 H 94 11/09/19 06:30 36.5 C 74 18 145/75 H 94 11/08/19 23:32 36.5 C 75 20 146/72 H 93 11/08/19 16:25 36.7 C 77 16 136/67 96 Pain Intensity Lower Back: Pain Intensity: 5 Transfer of Care Handoff Completed per policy Notes Mental Status: alert / awake / arousable and participated in evaluation Patient Amnestic to Procedure: Yes Nausea / Vomiting: adequately controlled Pain: adequately controlled Airway Patency, RR, SpO2: stable & adequate BP & HR: stable & adequate Hydration State: stable & adequate Anesthetic Complications: no major complications apparent and Pt Satisfied with anesthetic care
[2019-11-09] MEDS ORDERED: PROMETHAZINE HCL 12.5 MG in SODIUM CHLORIDE 0.9% 50 ML IV PRN (15:45)
[2019-11-09] MEDS ORDERED: NALOXONE HCL 0.4 MG/1 ML VIAL/CARP IV PRN (15:45)
[2019-11-09] MEDS ORDERED: DO NOT ADMINISTER FLU VACCINE PRN (15:45)
[2019-11-09] MEDS ORDERED: LORazepam 0.5 MG TAB PO PRN (15:45)
[2019-11-09] MEDS ORDERED: bisacodyL 10 MG SUPP PR PRN (15:45)
[2019-11-09] MEDS ORDERED: DO NOT ADMINISTER PNEUMOCOCCAL VACCINE PRN (15:45)
[2019-11-09] MEDS ORDERED: ONDANSETRON 4 MG OD TAB PO PRN (15:45)
[2019-11-09] MEDS ORDERED: FAMOTIDINE 20 MG TAB PO PRN (15:45)
[2019-11-09] MEDS ORDERED: ACETAMINOPHEN 1,000 MG/100 ML VIAL IV PRN (15:45)
[2019-11-09] MEDS ORDERED: METOCLOPRAMIDE HCL INJ 5 MG/ML 2 ML VIAL IV PRN (15:45)
[2019-11-09] MEDS ORDERED: LORazepam 0.5 MG/1 ML VIAL IV PRN (15:45)
[2019-11-09] MEDS ORDERED: ALUMINUM/MAGNESIUM SUSP 30 ML UDC PO PRN (15:45)
[2019-11-09] MEDS ORDERED: MAGNESIUM HYDROXIDE SUSP 30 ML UDC PO PRN (15:45)
[2019-11-09] MEDS ORDERED: MoRPHine SULFATE 4 MG/ML 1 ML CARP\\VIAL IV PRN (15:45)
[2019-11-09] MEDS ORDERED: SOD PHOSPHATE/SOD BIPHOSPHATE ENEMA 132 ML BTL PR PRN (15:45)
[2019-11-09] MEDS ORDERED: MoRPHine SULFATE 2 MG/ML CARP IV PRN (15:45)
[2019-11-09] MEDS: SODIUM CHLORIDE 0.9% 1000ML 1,000 ML IV SCH (15:54)
[2019-11-09] MEDS: DOCUSATE SODIUM/SENNA 50/8.6MG TAB PO SCH (20:07)
[2019-11-09] MEDS: CEFAZOLIN 1000MG 1,000 MG/7.5 ML SYR IV SCH (20:07)
[2019-11-09] MEDS: AMITRIPTYLINE HCL 25 MG TAB PO SCH (20:08)
[2019-11-09] MEDS: GABAPENTIN 300 MG CAP PO SCH (20:08)
[2019-11-09] MEDS: FLUTICASONE PROPIONATE NA SPR 16 GM BTL SCH (20:08)
[2019-11-09] MEDS: LORazepam 1 MG TAB PO PRN (22:07)
[2019-11-10] MEDS: SODIUM CHLORIDE 0.9% 1000ML 1,000 ML IV SCH ×2 (00:48→09:30)
[2019-11-10] MEDS: POLYETHYLENE (MIRALAX) 17 GM PACK PO SCH ×4 (05:34→22:57)
[2019-11-10] MEDS: LEVOTHYROXINE SODIUM 137 MCG TABLET PO SCH (05:34)
[2019-11-10] MEDS: CEFAZOLIN 1000MG 1,000 MG/7.5 ML SYR IV SCH (05:34)
[2019-11-10 05:51] LABS: Hematocrit (blood only) 32.2 % (37-47); Hemoglobin 10.6 g/dL (12.0-16.0); Immature Granulocytes # (auto) 0.02 K/uL (0.00-0.02); Immature Granulocytes % (auto) 0.2 %; Lymphocytes # (auto) 0.82 K/uL (1.2-3.4); Lymphocytes % (auto) 7.1 %; Mean Corpuscular Hemoglobin 28.4 pg (25-34); Mean Corpuscular Hgb Conc 32.9 g/dL (32-36); Mean Corpuscular Volume 86.3 fL (80-100); Mean Platelet Volume 8.4 fL (7.4-10.4); Monocytes # (auto) 0.75 K/uL (0.11-0.59); Monocytes % (auto) 6.5 %; Neutrophils # (auto) 9.91 K/uL (1.4-6.5); Neutrophils % (auto) 86.2 %; Platelet Count 136 K/uL (130-400); RDW Coefficient of Variation 18.3 % (11.5-14.5); RDW Standard Deviation 57.5 fL (36.4-46.3); Red Blood Count 3.73 M/uL (4.2-5.4)
[2019-11-10 06:23] LABS: BUN Creatinine Ratio 27.3 (10-20); Creatinine Clr Calc Pharmacy 66.1 ml/min; Est GFR (African American) 95.7; Est GFR (Non-African American) 82.5; Magnesium 2.1 mg/dl (1.8-2.4); Phosphorus 3.9 mg/dl (2.5-4.9)
--- NOTE | 2019-11-10 08:03 | Anesthesiology Progress Note ---
Date of Service November 10, 2019 Anesthesia Post Procedure Vital Signs Vital Signs: Temp Pulse Pulse Resp BP Pulse Ox 11/10/19 07:43 36.5 C 87 18 133/68 96 11/10/19 03:43 36.8 C 86 18 118/62 95 11/09/19 23:05 36.7 C 88 18 115/63 94 11/09/19 21:51 95 11/09/19 20:10 36.3 C L 97 H 14 109/67 97 11/09/19 19:27 93 H 11/09/19 16:42 120 H 18 155/83 H 97 11/09/19 16:10 36.4 C L 95 H 15 124/73 92 11/09/19 15:35 36.3 C L 96 H 14 136/75 94 11/09/19 15:15 36.3 C L 91 H 14 147/68 H 96 11/09/19 15:05 96 H 13 144/74 H 97 11/09/19 14:55 105 H 13 150/82 H 94 11/09/19 14:45 103 H 14 150/70 H 100 11/09/19 14:35 101 H 12 151/74 H 100 11/09/19 14:26 36.9 C 103 H 14 153/69 H 99 11/09/19 11:02 36.8 C 75 18 143/65 H 95 11/09/19 10:46 36.6 C 82 16 162/75 H 94 Pain Intensity Lower Back: Pain Intensity: 5 Notes Mental Status: alert / awake / arousable and participated in evaluation Nausea / Vomiting: adequately controlled Pain: adequately controlled Airway Patency, RR, SpO2: stable & adequate BP & HR: stable & adequate Hydration State: stable & adequate Anesthetic Complications: no major complications apparent and Pt Satisfied with anesthetic care Notes: Pt reports being confused in the middle of the night. was tearful talking to me. otherwise, stated she had no problems with anesthesia and was comfortable and aware of her surrondings now.
[2019-11-10] MEDS: PANTOprazole 40 MG TAB PO SCH (08:58)
[2019-11-10] MEDS: GABAPENTIN 100 MG CAP PO SCH (08:58)
--- NOTE | 2019-11-10 09:23 | Hospitalist Progress Note ---
Date of Service November 10, 2019 Assessment & Plan (1) Status post lumbar surgery: (2) Lumbar disc herniation with radiculopathy: (3) Intractable back pain: Post op day# 1 S/P removal hardware L4-5, decompression L2-L4, fusion L3-L4 by Dr Blandon EBL#150ml Total KEVIN drain output #320ml -pain management per ortho - Would Recommend not dosing benzos and narcotic meds together as pt had episode of visual hallucination last night. Relayed to pt's nurse this morning. -wound management per ortho -PT/OT as appropriate -DVT prophylaxis per ortho -incentive spirometry -Hgb: 10.6 from 11.9 pre-op. Continue to monitor H&H for acute blood loss anemia (4) Hypokalemia: Resolved 11/08/2019 K was 3.3 and was replaced Potassium has been normal since (5) Hypertension: Stable Hold HCTZ and reassess tomorrow Resume Losartan today with holding parameters (6) Hyperlipidemia: Continue statin (7) History of TIA (transient ischemic attack): Continue statin Plavix has been on hold since 11/03/2019 Continue to hold Plavix, resume per Ortho (8) Hypothyroidism: Continue levothyroxine (9) GERD (gastroesophageal reflux disease): Continue PPI (10) DVT prophylaxis: SCD/TEDS due to lumbar procedure in a.m. Disposition: per primary service Follow up: Dr. Webster upon discharge Pt was see and examined in collaboration with Dr. Strickland, please see addendum Thank you for this consultation. We will follow the patient with you during their hospital stay. You can reach a [facility]/10 via pager @ [phone]. Admission and Anticipated Discharge Date Admission Date: November 08, 2019 Supervising Physician Co-Signing Physician Notes Patient seen and examined by me, care coordinated with BRIDGET Servin, please refer to her note above for detail. This is an 84 y/o female with hx of HTN, HLD, history of TIA, hypothyroidism, GERD, anxiety, chronic low back pain, history of migraine who is S/P removal hardware L4-5, decompression L2-L4, fusion L3-L4 by Dr Blandon yesterday, on 11/09/[address] Blandon. Overnight patient had some hallucinations, likely combination of her medications and benzos, currently patient is laying in bed, in no acute distress. Patient is daughter at the bedside. Pt is breathing comfortably on room air, lungs are clear to auscultation bilaterally, without any wheezing rhonchi or crackles. She is alert and oriented and answering questions appropriately. Heart sounds regular. Abdomen is soft, nontender, nondistended. Skin is warm dry, well- perfused. She is generally able to move her extremities. Patient prefers to now only take Tylenol and possibly Tylenol PM at night, I agree with this approach, however counseled her that if she is in pain she should let nursing staff know. We will continue to follow after surgery. Monitor vital signs, blood pressure, also monitor for blood loss anemia. Encourage incentive spirometry. Tato Strickland MD Subjective Pt seen and examined. POD #1 s/p lumbar surgery. Post op doing ok. Reports last night hallucinated and saw her in the room. This occurred after pain medication and Ativan. She has taken Ativan at home before without problems. Currently wants to persue using Tylenol for pain as pain moderately controlled while in bed with Tylenol. Still has Perez in place. Passing flatus, no BM yet. Eating and drinking without difficulty. Denies fever/chills, diaphoresis, N/V/D, SANTORO, dizziness, CP, SOB, palpitations, choking, abdominal pain, weakness, extremity edema, rashes, urinary symptoms. Review of Systems Review of Systems: All systems reviewed & are unremarkable except as noted in HPI & below Physical Exam Physical Exam: General: no distress, WDWN Head: normocephalic, atraumatic Eyes: conjunctiva non-injected, anicteric ENT: normal inspection external ears, nose, mucous membranes moist Neck: supple, trachea midline Lungs: clear, no respiratory distress, no wheezing/rhonchi/rales CV: RRR, no murmur, no pretibial edema Abd: normal BS, soft, non-tender Back:dressing in place, KEVIN drain in place Ext: no cyanosis, no calf tenderness; pedal pushes and pulls intact bilaterally; distal pulses intact Neuro: A&O x 3, no focal deficits noted, normal affect Skin: warm, dry Results & Data Results & Data ([facility]) Vital Signs (Past 12 Hours) Vital Signs Temp Pulse Pulse Resp BP Pulse Ox 11/10/19 07:43 36.5 C 87 18 133/68 96 11/10/19 03:43 36.8 C 86 18 118/62 95 11/09/19 23:05 36.7 C 88 18 115/63 94 11/09/19 21:51 95 Laboratory Results Short CBC 11/08/19 11/09/19 11/10/19 Range/Units 15:21 05:35 05:29 WBC (4.8-10.8) K/uL Hgb (12.0-16.0) g/dL Hct (37-47) % Plt Count (130-400) K/uL Creatinine 0.88 0.85 0.60 (0.6-1.2) mg/dl 11/10/19 Range/Units 05:29 WBC 11.50 H (4.8-10.8) K/uL Hgb 10.6 L (12.0-16.0) g/dL Hct 32.2 L (37-47) % Plt Count 136 (130-400) K/uL Creatinine (0.6-1.2) mg/dl [facility] 11/10/19 05:29 Sodium 139 Potassium 4.0 Chloride 107 Carbon Dioxide 26 BUN 16 Creatinine 0.60 Glucose 118 H Calcium 8.0 L
[2019-11-10] MEDS: LOSARTAN POTASSIUM 50 MG TAB PO SCH (11:00)
--- NOTE | 2019-11-10 11:03 | Orthopedic Progress Note ---
Date of Service November 10, 2019 Assessment & Plan (1) Lumbar disc herniation with radiculopathy: Admission and Anticipated Discharge Date Admission Date: November 08, 2019 At this time will be going to maintain bed rest. She may sit up for meals. I will assess her progress tomorrow most likely initiate bed to chair transfers. We will then begin occupational therapy physical therapy and hopes for rehab Thursday. Subjective Patient's back pain and leg pain are markedly improved. Denies any nausea vomiting or headaches. Physical Exam Physical Exam: But that has good strength testing. Results & Data ([facility]) Vital Signs (Past 12 Hours) Vital Signs Temp Pulse Pulse Resp BP Pulse Ox 11/10/19 07:43 36.5 C 87 18 133/68 96 11/10/19 03:43 36.8 C 86 18 118/62 95 11/09/19 23:05 36.7 C 88 18 115/63 94
[2019-11-10] MEDS: ACETAMINOPHEN 500 MG TAB PO PRN ×2 (12:19→20:23)
[2019-11-10] MEDS: AMITRIPTYLINE HCL 25 MG TAB PO SCH (20:17)
[2019-11-10] MEDS: ATORVASTATIN 10 MG TAB PO SCH (20:17)
[2019-11-10] MEDS: GABAPENTIN 300 MG CAP PO SCH (20:17)
[2019-11-10] MEDS: DOCUSATE SODIUM/SENNA 50/8.6MG TAB PO SCH (20:17)
[2019-11-10] MEDS: FLUTICASONE PROPIONATE NA SPR 16 GM BTL SCH (20:18)
[2019-11-11] MEDS: LEVOTHYROXINE SODIUM 137 MCG TABLET PO SCH (05:54)
[2019-11-11] MEDS: POLYETHYLENE (MIRALAX) 17 GM PACK PO SCH ×3 (05:54→17:44)
[2019-11-11 06:15] LABS: Hematocrit (blood only) 31.3 % (37-47); Hemoglobin 9.6 g/dL (12.0-16.0); Mean Corpuscular Hgb Conc 30.7 g/dL (32-36); Mean Corpuscular Volume 87.9 fL (80-100); Mean Platelet Volume 8.3 fL (7.4-10.4); Platelet Count 134 K/uL (130-400); RDW Coefficient of Variation 19.1 % (11.5-14.5); RDW Standard Deviation 61.4 fL (36.4-46.3); Red Blood Count 3.56 M/uL (4.2-5.4)
[2019-11-11 06:50] LABS: BUN Creatinine Ratio 26.8 (10-20); Calcium 7.9 mg/dl (8.5-10.1); Creatinine Clr Calc Pharmacy 58.3 ml/min; Est GFR (African American) 91.8; Est GFR (Non-African American) 79.2; Potassium 3.7 mmol/L (3.5-5.1)
[2019-11-11] MEDS: ACETAMINOPHEN 500 MG TAB PO PRN ×2 (07:43→21:13)
[2019-11-11] MEDS: PANTOprazole 40 MG TAB PO SCH (07:44)
[2019-11-11] MEDS: GABAPENTIN 100 MG CAP PO SCH (07:44)
[2019-11-11] MEDS: LOSARTAN POTASSIUM 50 MG TAB PO SCH (08:04)
--- NOTE | 2019-11-11 08:44 | Hospitalist Progress Note ---
Date of Service November 11, 2019 Assessment & Plan (1) Status post lumbar surgery: (2) Lumbar disc herniation with radiculopathy: (3) Intractable back pain: Post op day# 2 S/P removal hardware L4-5, decompression L2-L4, fusion L3-L4 by Dr Jamia GRIFFINL#150ml Total KEVIN drain output over past 24 hours #250ml -pain management per ortho - Would Recommend not dosing benzos and narcotic meds together as pt had episode of visual hallucination. Currently pain controlled with Tylenol -PT/OT as appropriate -DVT prophylaxis per ortho -incentive spirometry -Hgb: 9.6 from 10.6 yesterday and from 11.9 pre-op. Consistent with dilution and acute blood loss (4) Hypokalemia: Resolved 11/08/2019 K was 3.3 and was replaced Potassium has been normal since (5) Hypertension: Stable Lostartan was resumed 11/10/2019 Plan to resume HCTZ (6) Hyperlipidemia: Continue statin (7) History of TIA (transient ischemic attack): Continue statin Plavix has been on hold since 11/03/2019 Continue to hold Plavix, resume per Ortho (8) Hypothyroidism: Continue levothyroxine (9) GERD (gastroesophageal reflux disease): Continue PPI (10) DVT prophylaxis: SCD/TEDS due to lumbar procedure in a.m. Disposition: per primary service Follow up: Dr. Webster upon discharge Pt was see and examined in collaboration with Dr. Strickland, please see addendum Thank you for this consultation. We will follow the patient with you during their hospital stay. You can reach a member of the [facility]ist Team 06/10 via pager @ [phone]. Admission and Anticipated Discharge Date Admission Date: November 08, 2019 Supervising Physician Co-Signing Physician Notes Patient seen and examined by me, care coordinated with BRIDGET Servin, please refer to her note above for detail. Pt is an 84 y/o female with hx of HTN, HLD, history of TIA, hypothyroidism, GERD, anxiety, chronic low back pain, history of migraine who is S/P removal hardware L4-5, decompression L2-L4, fusion L3-L4 by Dr Blandon, on 11/09/2019. She is currently denying any fevers, chills, chest pain, shortness of breath, abdominal pain, nausea or vomiting. She is passing flatus, no BM yet. No hallucinations yesterday, she also prefers to stay on Tylenol only. She can ta ke Benadryl for sleep as she is used to taking Tylenol PM without any side effects/complications. No acute events overnight. Patient is lying supine in bed, in no acute distress. She is breathing comfortably on room air, lungs are clear to auscultation bilaterally, without any wheezing rhonchi or crackles. She is alert and oriented and answering questions appropriately. Heart sounds regular. Abdomen is soft, nontender, nondistended, positive bowel sounds. Perez catheter placed, drains clear yellow urine. Skin is warm dry, well-perfused. She is generally able to move her extremities. Vital signs and labs reviewed. Monitor vital signs, blood pressure, also monitor for blood loss anemia. Encourage incentive spirometry. Will continue to follow. Tato Strickland MD Subjective Pt seen and examined. Lying supine in bed. Still on bedrest. Reports back pain moderately controlled with Tylenol only. No further leg pain. Has chronic bilateral leg neuropathy. Has Perez cath in place. reports passing flatus, no BM yet but feels like may have BM today. Eating and drinking but doesn't eat a lot. Denies fever/chills, diaphoresis, N/V, SANTORO, dizziness, CP, SOB, cough, abdominal pain, extremity edema, rashes, urinary symptoms. Pt reports plans to go to rehab after discharged. Review of Systems Review of Systems: All systems reviewed & are unremarkable except as noted in HPI & below Physical Exam Physical Exam: General: no distress, WDWN Head: normocephalic, atraumatic Eyes: conjunctiva non-injected, anicteric ENT: normal inspection external ears, nose, mucous membranes moist Neck: supple, trachea midline Lungs: clear, no respiratory distress, no wheezing/rhonchi/rales CV: RRR, no murmur, no pretibial edema Abd: normal BS, soft, non-tender Back:dressing in place, KEVIN drain in place Ext: no cyanosis, no calf tenderness; pedal pushes and pulls intact bilaterally; distal pulses intact Neuro: A&O x 3, no focal deficits noted, normal affect Skin: warm, dry Results & Data Results & Data ([facility]) Vital Signs (Past 12 Hours) Vital Signs Temp Pulse Pulse Resp BP Pulse Ox 11/11/19 07:50 36.3 C L 72 18 145/73 H 93 11/10/19 23:00 36.6 C 84 16 107/58 L 94 Laboratory Results Short CBC 11/11/19 Range/Units 05:31 WBC 8.40 (4.8-10.8) K/uL Hgb 9.6 L (12.0-16.0) g/dL Hct 31.3 L (37-47) % Plt Count 134 (130-400) K/uL BMP 11/11/19 05:31 Sodium 141 Potassium 3.7 Chloride 108 H Carbon Dioxide 26 BUN 18 Creatinine 0.68 Glucose 101 H Calcium 7.9 L
[2019-11-11] MEDS: hydroCHLOROthiazide 25 MG TAB PO SCH (11:21)
[2019-11-11] MEDS: TRAMADOL HCL 50 MG TABLET PO PRN (11:22)
--- NOTE | 2019-11-11 12:22 | Orthopedic Progress Note ---
Date of Service November 11, 2019 Assessment & Plan (1) Lumbar disc herniation with radiculopathy: Admission and Anticipated Discharge Date Admission Date: November 08, 2019 At this time we will maintain bedrest from a sit up to eat. If she tolerates today well will initiate physical therapy tomorrow. Subjective Back pain is controlled denies any headaches. Denies any leg pain. Physical Exam Physical Exam: On exam she is good strength testing lower extremities. Wound dressing was changed today. The incision is clean dry without erythema or swelling. Results & Data ([facility]) Vital Signs (Past 12 Hours) Vital Signs Temp Pulse Resp BP Pulse Ox 11/11/19 07:50 36.3 C L 72 18 145/73 H 93
[2019-11-11] MEDS: FLUTICASONE PROPIONATE NA SPR 16 GM BTL SCH (21:13)
[2019-11-11] MEDS: AMITRIPTYLINE HCL 25 MG TAB PO SCH (21:13)
[2019-11-11] MEDS: DOCUSATE SODIUM/SENNA 50/8.6MG TAB PO SCH (21:14)
[2019-11-11] MEDS: GABAPENTIN 300 MG CAP PO SCH (21:14)
[2019-11-12] MEDS: POLYETHYLENE (MIRALAX) 17 GM PACK PO SCH (00:28)
[2019-11-12] MEDS: TRAMADOL HCL 50 MG TABLET PO PRN (03:14)
[2019-11-12] MEDS: LEVOTHYROXINE SODIUM 137 MCG TABLET PO SCH (06:36)
--- NOTE | 2019-11-12 08:10 | Hospitalist Progress Note ---
Date of Service November 12, 2019 Assessment & Plan (1) Status post lumbar surgery: (2) Lumbar disc herniation with radiculopathy: (3) Intractable back pain: Post op day# 3 S/P removal hardware L4-5, decompression L2-L4, fusion L3-L4 by Dr Jamia amin -pain management per ortho - Would Recommend not dosing benzos and narcotic meds together as pt had episode of visual hallucination. Currently pain controlled with Tylenol -PT/OT as appropriate -DVT prophylaxis per ortho -incentive spirometry -Hgb: 9.6 from 11.9 pre-op. Consistent with dilution and acute blood loss (4) Hypokalemia: Resolved 11/08/2019 K was 3.3 and was replaced Potassium has been normal since (5) Hypertension: Stable Lostartan was resumed 11/10/2019 Plan to resume HCTZ (6) Hyperlipidemia: Continue statin (7) History of TIA (transient ischemic attack): Continue statin Plavix has been on hold since 11/03/2019 Continue to hold Plavix, resume per Ortho (8) Hypothyroidism: Continue levothyroxine (9) GERD (gastroesophageal reflux disease): Continue PPI (10) DVT prophylaxis: SCD/TEDS Disposition: per primary service Follow up: Dr. Webster upon discharge Thank you for this consultation. We will follow the patient with you during their hospital stay. You can reach a member of the [facility] Hospitalist Team 06/10 via pager @ [phone]. Admission and Anticipated Discharge Date Admission Date: November 08, 2019 Subjective Patient is sitting up in a chair, in no acute distress. She denies any fevers, chills, chest pain, shortness of breath, abdominal pain, nausea or vomiting. She did have a bowel movement/incontinence this morning. Review of Systems Review of Systems: All systems reviewed & are unremarkable except as noted in HPI & below Constitutional: no fever and no chills Respiratory: no cough and no dyspnea Cardiovascular: no chest pain and no palpitations Gastrointestinal: no abdominal pain, no nausea and no vomiting Physical Exam Physical Exam: General: Elderly female, sitting up in the chair, in no distress, WDWN Head: normocephalic, atraumatic Eyes: conjunctiva non-injected, anicteric ENT: normal inspection external ears, nose, mucous membranes moist Neck: supple, trachea midline Lungs: clear, no respiratory distress, no wheezing/rhonchi/rales CV: RRR, no murmur, no pretibial edema Abd: normal BS, soft, non-tender Back: dressing in place, KEVIN drain in place Ext: no cyanosis, no calf tenderness; pedal pushes and pulls intact bilaterally; distal pulses intact Neuro: A&O x 3, no focal deficits noted, normal affect Skin: warm, dry Results & Data Results & Data ([facility]) Vital Signs (Past 12 Hours) Vital Signs Temp Pulse Resp BP Pulse Ox 11/12/19 07:10 36.7 C 76 17 122/71 94 11/11/19 23:07 36.2 C L 98 H 16 139/60 94 Medications Administered Current Inpatient Medications Acetaminophen (Acetaminophen 500 Mg Tab) 1,000 mg PO Q8H PRN PRN Reason: MILD Pain Scale 1,2,3 & Pre PT Stop: 12/09/19 15:44 Last Admin: 11/11/19 21:13 Dose: 1,000 mg Documented by: Hydrocodone Bitart/Acetaminophen (Hydrocodone/Acetamophen 5/325mg Tab) 1 - 2 tab PO Q4H PRN PRN Reason: Moderate-Severe Pain Stop: 11/22/19 15:07 Last Admin: 11/09/19 05:47 Dose: 2 tab Documented by: Al Hydrox/Mg Hydrox/Simethicone (Aluminum/Magnesium Susp 30 Ml Udc) 30 ml PO Q6H PRN PRN Reason: Dyspepsia Stop: 12/09/19 15:44 Amitriptyline HCl (Amitriptyline Hcl 25 Mg Tab) 25 mg PO HS MEHUL Stop: 12/08/19 20:59 Last Admin: 11/11/19 21:13 Dose: 25 mg Documented by: Atorvastatin Calcium (Atorvastatin 10 Mg Tab) 10 mg PO Q2D@2100 MEHUL Stop: 12/08/19 20:59 Last Admin: 11/10/19 20:17 Dose: 10 mg Documented by: Bisacodyl (Bisacodyl 10 Mg Supp) 10 mg UT DAILY PRN PRN Reason: Constipation Stop: 12/09/19 15:44 Diphenhydramine HCl (Diphenhydramine Hcl 25 Mg Cap) 25 mg PO Q6H PRN PRN Reason: Allergic Rhinitis/Insomnia Stop: 12/09/19 15:44 Diphenhydramine HCl (Diphenhydramine Hcl 25 Mg Cap) 25 mg PO HS PRN PRN Reason: Sleep Stop: 12/10/19 18:31 Famotidine (Famotidine 20 Mg Tab) 20 mg PO Q12H PRN PRN Reason: Dyspepsia Stop: 12/09/19 15:44 Fluticasone Propionate (Fluticasone Propionate Na Spr 16 Gm Btl) 2 sprays NA [facility] Stop: 12/08/19 20:59 Last Admin: 11/11/19 21:13 Dose: 2 sprays Documented by: Gabapentin (Gabapentin 300 Mg Cap) 300 mg PO [facility] Stop: 12/08/19 20:59 Last Admin: 11/11/19 21:14 Dose: 300 mg Documented by: Gabapentin (Gabapentin 100 Mg Cap) 200 mg PO [facility] Stop: 12/09/19 08:59 Last Admin: 11/11/19 07:44 Dose: 200 mg Documented by: Hydrochlorothiazide (Hydrochlorothiazide 25 Mg Tab) 12.5 [facility] Stop: 12/11/19 08:59 Last Admin: 11/11/19 11:21 Dose: 12.5 mg Documented by: Hydroxyzine HCl (Hydroxyzine Hcl 25 Mg Tab) 25 mg PO Q8H PRN PRN Reason: Anxiety Stop: 12/09/19 15:44 Promethazine HCl 12.5 mg/ (Sodium Chloride) 50.5 mls @ 204 mls/hr IV Q6H PRN PRN Reason: Nausea &/or Vomiting Stop: 12/08/19 15:07 Lorazepam (Ativan) 1 mg in 2 mls @ 2 mls/min IV Q6H PRN PRN Reason: Anxiety/Spasms Stop: 12/08/19 15:07 Promethazine HCl 12.5 mg/ (Sodium Chloride) 50.5 mls @ 204 mls/hr IV Q6H PRN PRN Reason: Nausea &/or Vomiting Stop: 12/09/19 15:44 Lorazepam (Ativan) 0.5 mg in 1 mls @ 0.5 mls/min IV Q8H PRN PRN Reason: Sedation/Anxiety Stop: 12/09/19 15:44 Influenza Virus Vaccine Quadrival (Do Not Administer Flu Vaccine) 1 ea N/A PRN PRN PRN Reason: Notification Stop: 12/09/19 15:44 Levothyroxine Sodium (Levothyroxine Sodium 137 Mcg Tablet) 137 mcg PO DAILYBB [facility] Stop: 12/09/19 06:29 Last Admin: 11/12/19 06:36 Dose: 137 mcg Documented by: Lorazepam (Lorazepam 1 Mg Tab) 1 mg PO Q6H PRN PRN Reason: Anxiety/spasms Stop: 12/08/19 15:07 Last Admin: 11/09/19 22:07 Dose: 1 mg Documented by: Lorazepam (Lorazepam 0.5 Mg Tab) 0.5 mg PO DAILY PRN PRN Reason: Anxiety/sleep Stop: 12/08/19 17:16 Lorazepam (Lorazepam 0.5 Mg Tab) 0.5 mg PO Q8H PRN PRN Reason: Sedation/Anxiety Stop: 12/09/19 15:44 Losartan Potassium (Losartan Potassium 50 Mg Tab) 50 mg PO QAM [facility] Stop: 12/10/19 09:59 Last Admin: 11/11/19 08:04 Dose: 50 mg Documented by: Magnesium Hydroxide (Magnesium Hydroxide Susp 30 Ml Udc) 30 ml PO DAILY PRN PRN Reason: Constipation Stop: 12/09/19 15:44 Metoclopramide HCl (Metoclopramide Hcl Inj 5 Mg/Ml 2 Ml Vial) 10 mg IV Q6H PRN PRN Reason: Nausea &/or Vomiting Stop: 12/08/19 15:07 Last Admin: 11/09/19 15:54 Dose: 10 mg Documented by: Metoclopramide HCl (Metoclopramide Hcl Inj 5 Mg/Ml 2 Ml Vial) 10 mg IV Q6H PRN PRN Reason: Nausea &/or Vomiting Stop: 12/09/19 15:44 Morphine Sulfate (Morphine Sulfate 2 Mg/Ml Carp) 2 mg IV Q3H PRN PRN Reason: MOD Pain 4,5,6 & Pre PT Stop: 11/23/19 15:44 Morphine Sulfate (Morphine Sulfate 4 Mg/Ml 1 Ml Carp\Vial) 4 mg IV Q3H PRN PRN Reason: SEVERE Pain 7,8,9,10 Stop: 11/23/19 15:44 Naloxone HCl (Naloxone Hcl 0.4 Mg/1 Ml Vial/Carp) 0.1 mg IV Q5M PRN; Protocol PRN Reason: Oversedation/Resp Depression Stop: 12/09/19 15:44 Ondansetron HCl (Ondansetron Inj 2 Mg/Ml 2 Ml Vial) 4 mg IV Q6H PRN PRN Reason: Nausea &/or Vomiting Stop: 12/08/19 15:07 Ondansetron HCl (Ondansetron 4 Mg Od Tab) 4 mg PO Q6H PRN PRN Reason: Nausea Stop: 12/08/19 15:07 Ondansetron HCl (Ondansetron Inj 2 Mg/Ml 2 Ml Vial) 4 mg IV Q6H PRN PRN Reason: Nausea &/or Vomiting Stop: 12/09/19 15:44 Ondansetron HCl (Ondansetron 4 Mg Od Tab) 4 mg PO Q6H PRN PRN Reason: Nausea Stop: 12/09/19 15:44 Pantoprazole Sodium (Pantoprazole 40 Mg Tab) 40 [facility] Stop: 12/09/19 08:59 Last Admin: 11/11/19 07:44 Dose: 40 mg Documented by: Pneumococcal Polyvalent Vaccine (Do Not Administer Pneumococcal Vaccine) 1 ea N/A PRN PRN PRN Reason: Notification Stop: 12/09/19 15:44 Senna/Docusate Sodium (Docusate Sodium/Senna 50/8.6mg Tab) 2 tab PO [facility] Stop: 12/09/19 20:59 Last Admin: 11/11/19 21:14 Dose: 2 tab Documented by: Sodium Biphosphate/Sodium Phosphate (Sod Phosphate/Sod Biphosphate Enema 132 Ml Btl) 132 ml [place] ONE PRN PRN Reason: Constipation Stop: 12/09/19 15:44 Tramadol HCl (Tramadol Hcl 50 Mg Tablet) 50 - 100 mg PO Q4H PRN PRN Reason: Moderate-Severe Pain Stop: 12/08/19 15:07 Last Admin: 11/12/19 03:14 Dose: 50 mg Documented by:
[2019-11-12] MEDS: LOSARTAN POTASSIUM 50 MG TAB PO SCH (08:51)
[2019-11-12] MEDS: GABAPENTIN 100 MG CAP PO SCH (08:51)
[2019-11-12] MEDS: PANTOprazole 40 MG TAB PO SCH (08:51)
[2019-11-12] MEDS: hydroCHLOROthiazide 25 MG TAB PO SCH (09:29)
--- NOTE | 2019-11-12 10:05 | Orthopedic Progress Note ---
Date of Service November 12, 2019 Assessment & Plan (1) Lumbar disc herniation with radiculopathy: Admission and Anticipated Discharge Date Admission Date: November 08, 2019 Today I will request that she begin bed to chair transfers. She may ambulate about the room with assistance. If she tolerates this activity today without difficulty will advance to physical therapy occupational therapy Thursday. Hopefully rehab discharge on Thursday. Subjective Back pain is controlled denies any nausea vomiting or headache. No leg pain. Physical Exam Physical Exam: Patient is good strength testing appears comfortable. Results & Data ([facility]) Vital Signs (Past 12 Hours) Vital Signs Temp Pulse Resp BP Pulse Ox 11/12/19 07:10 36.7 C 76 17 122/71 94 11/11/19 23:07 36.2 C L 98 H 16 139/60 94
[2019-11-12] MEDS: ACETAMINOPHEN 500 MG TAB PO PRN ×2 (11:02→23:44)
[2019-11-12] MEDS: FLUTICASONE PROPIONATE NA SPR 16 GM BTL SCH (21:11)
[2019-11-12] MEDS: ATORVASTATIN 10 MG TAB PO SCH (21:11)
[2019-11-12] MEDS: AMITRIPTYLINE HCL 25 MG TAB PO SCH (21:11)
[2019-11-12] MEDS: DOCUSATE SODIUM/SENNA 50/8.6MG TAB PO SCH (21:11)
[2019-11-12] MEDS: GABAPENTIN 300 MG CAP PO SCH (21:11)
[2019-11-13] MEDS: LEVOTHYROXINE SODIUM 137 MCG TABLET PO SCH (05:57)
[2019-11-13 06:20] LABS: Hematocrit (blood only) 31.6 % (37-47); Mean Corpuscular Hemoglobin 27.1 pg (25-34); Mean Corpuscular Hgb Conc 31.6 g/dL (32-36); Mean Corpuscular Volume 85.6 fL (80-100); Mean Platelet Volume 8.2 fL (7.4-10.4); Platelet Count 152 K/uL (130-400); RDW Standard Deviation 59.6 fL (36.4-46.3); Red Blood Count 3.69 M/uL (4.2-5.4); White Blood Count 9.26 K/uL (4.8-10.8)
[2019-11-13 06:50] LABS: BUN Creatinine Ratio 29.5 (10-20); Calcium 8.9 mg/dl (8.5-10.1); Est GFR (African American) 95.1; Est GFR (Non-African American) 82.1; Potassium 3.2 mmol/L (3.5-5.1)
[2019-11-13] MEDS ORDERED: POTASSIUM CHLORIDE 20 MEQ TABCR PO STA (07:29)
--- NOTE | 2019-11-13 07:29 | Hospitalist Progress Note ---
Date of Service November 13, 2019 Assessment & Plan (1) Status post lumbar surgery: (2) Lumbar disc herniation with radiculopathy: (3) Intractable back pain: Post op day# 4 S/P removal hardware L4-5, decompression L2-L4, fusion L3-L4 by Dr Jamia amin -pain management per ortho - Would Recommend not dosing benzos and narcotic meds together as pt had episode of visual hallucination. Currently pain controlled with Tylenol -PT/OT as appropriate -DVT prophylaxis per ortho -incentive spirometry -Hgb: 10.0 from 11.9 pre-op. Consistent with dilution and acute blood loss (4) Hypokalemia: 11/08/2019 K was 3.3 and was replaced K 3.2 today on 11/12, likely due to loose stools and poor oral intake Replete and monitor Loose stools We will obtain C. difficile test (5) Hypertension: Stable Lostartan was resumed 11/10/2019 Plan to resume HCTZ (6) Hyperlipidemia: Continue statin (7) History of TIA (transient ischemic attack): Continue statin Plavix has been on hold since 11/03/2019 Continue to hold Plavix, resume per Ortho (8) Hypothyroidism: Continue levothyroxine (9) GERD (gastroesophageal reflux disease): Continue PPI (10) DVT prophylaxis: SCD/TEDS Disposition: per primary service Follow up: Dr. Webster upon discharge Thank you for this consultation. We will follow the patient with you during their hospital stay. You can reach a member of the [place] [facility] [place] [facility] Hospitalist Team 06/10 via pager @ [phone]. Admission and Anticipated Discharge Date Admission Date: November 08, 2019 Subjective Patient is lying in bed, in no acute distress. Daughter is at the bedside. Denies any fevers, chills, chest pain, shortness of breath, abdominal pain. She says that she has been having loose stools. Pain is well controlled with Tylenol. Patient was little confused in the middle of the night when she woke up and wanted to get out of bed. Now she feels well again. She strongly feels that when she is in rehab she will get confused because the environment is more familiar to her. Review of Systems Review of Systems: All systems reviewed & are unremarkable except as noted in HPI & below Constitutional: no fever and no chills Respiratory: no cough and no dyspnea Cardiovascular: no chest pain and no palpitations Gastrointestinal: + diarrhea/loose stools; no abdominal pain, no nausea and no vomiting Physical Exam Physical Exam: General: Elderly female, sitting up in the chair, in no distress, WDWN Head: normocephalic, atraumatic Eyes: conjunctiva non-injected, anicteric ENT: normal inspection external ears, nose, mucous membranes moist Neck: supple, trachea midline Lungs: clear, no respiratory distress, no wheezing/rhonchi/rales CV: RRR, no murmur, no pretibial edema Abd: normal BS, soft, non-tender Back: dressing in place, KEVIN drain in place Ext: no cyanosis, no calf tenderness; pedal pushes and pulls intact bilaterally; distal pulses intact Neuro: A&O x 3, no focal deficits noted, normal affect Skin: warm, dry Results & Data Results & Data ([facility]) Vital Signs (Past 12 Hours) Vital Signs Temp Pulse Resp BP Pulse Ox 11/13/19 07:13 36.4 C L 76 18 149/66 H 94 11/12/19 23:04 37.0 C 104 H 16 139/73 95 Laboratory Results 11/13/19 11/13/19 Range/Units 05:53 05:53 WBC 9.26 (4.8-10.8) K/uL RBC 3.69 L (4.2-5.4) M/uL Hgb 10.0 L (12.0-16.0) g/dL Hct 31.6 L (37-47) % MCV 85.6 (80-100) fL MCH 27.1 (25-34) pg MCHC 31.6 L (32-36) g/dL RDW Std Deviation 59.6 H (36.4-46.3) fL RDW Coeff of Paulo 19.0 H (11.5-14.5) % Plt Count 152 (130-400) K/uL MPV 8.2 (7.4-10.4) fL Sodium 139 (136-145) mmol/L Potassium 3.2 L (3.5-5.1) mmol/L Chloride 104 (98-107) mmol/L Carbon Dioxide 28 (21-32) mmol/L Anion Gap 7.0 (3-11) BUN 18 (7-18) mg/dl Creatinine 0.61 (0.6-1.2) mg/dl Est Cr Clr Drug Dosing 65.0 ml/min Est GFR ( Amer) 95.1 Est GFR (Non-Af Amer) 82.1 BUN/Creatinine Ratio 29.5 H (10-20) Glucose 113 H (70-99) mg/dl Calcium 8.9 (8.5-10.1) mg/dl Medications Administered Current Inpatient Medications Acetaminophen (Acetaminophen 500 Mg Tab) 1,000 mg PO Q8H PRN PRN Reason: MILD Pain Scale 1,2,3 & Pre PT Stop: 12/09/19 15:44 Last Admin: 11/12/19 23:44 Dose: 1,000 mg Documented by: Hydrocodone Bitart/Acetaminophen (Hydrocodone/Acetamophen 5/325mg Tab) 1 - 2 tab PO Q4H PRN PRN Reason: Moderate-Severe Pain Stop: 11/22/19 15:07 Last Admin: 11/09/19 05:47 Dose: 2 tab Documented by: Al Hydrox/Mg Hydrox/Simethicone (Aluminum/Magnesium Susp 30 Ml Udc) 30 ml PO Q6H PRN PRN Reason: Dyspepsia Stop: 12/09/19 15:44 Amitriptyline HCl (Amitriptyline Hcl 25 Mg Tab) 25 mg PO HS MEHUL Stop: 12/08/19 20:59 Last Admin: 11/12/19 21:11 Dose: 25 mg Documented by: Atorvastatin Calcium (Atorvastatin 10 Mg Tab) 10 mg PO Q2D@2100 MEHUL Stop: 12/08/19 20:59 Last Admin: 11/12/19 21:11 Dose: 10 mg Documented by: Bisacodyl (Bisacodyl 10 Mg Supp) 10 mg [place] DAILY PRN PRN Reason: Constipation Stop: 12/09/19 15:44 Diphenhydramine HCl (Diphenhydramine Hcl 25 Mg Cap) 25 mg PO Q6H PRN PRN Reason: Allergic Rhinitis/Insomnia Stop: 12/09/19 15:44 Diphenhydramine HCl (Diphenhydramine Hcl 25 Mg Cap) 25 mg PO HS PRN PRN Reason: Sleep Stop: 12/10/19 18:31 Famotidine (Famotidine 20 Mg Tab) 20 mg PO Q12H PRN PRN Reason: Dyspepsia Stop: 12/09/19 15:44 Fluticasone Propionate (Fluticasone Propionate Na Spr 16 Gm Btl) 2 sprays NA [facility] Stop: 12/08/19 20:59 Last Admin: 11/12/19 21:11 Dose: 2 sprays Documented by: Gabapentin (Gabapentin 300 Mg Cap) 300 mg PO [facility] Stop: 12/08/19 20:59 Last Admin: 11/12/19 21:11 Dose: 300 mg Documented by: Gabapentin (Gabapentin 100 Mg Cap) [facility] Stop: 12/09/19 08:59 Last Admin: 11/12/19 08:51 Dose: 200 mg Documented by: Hydrochlorothiazide (Hydrochlorothiazide 25 Mg Tab) 12.5 mg [facility] Stop: 12/11/19 08:59 Last Admin: 11/12/19 09:29 Dose: 12.5 mg Documented by: Hydroxyzine HCl (Hydroxyzine Hcl 25 Mg Tab) 25 mg PO Q8H PRN PRN Reason: Anxiety Stop: 12/09/19 15:44 Promethazine HCl 12.5 mg/ (Sodium Chloride) 50.5 mls @ 204 mls/hr IV Q6H PRN PRN Reason: Nausea &/or Vomiting Stop: 12/08/19 15:07 Lorazepam (Ativan) 1 mg in 2 mls @ 2 mls/min IV Q6H PRN PRN Reason: Anxiety/Spasms Stop: 12/08/19 15:07 Promethazine HCl 12.5 mg/ (Sodium Chloride) 50.5 mls @ 204 mls/hr IV Q6H PRN PRN Reason: Nausea &/or Vomiting Stop: 12/09/19 15:44 Lorazepam (Ativan) 0.5 mg in 1 mls @ 0.5 mls/min IV Q8H PRN PRN Reason: Sedation/Anxiety Stop: 12/09/19 15:44 Influenza Virus Vaccine Quadrival (Do Not Administer Flu Vaccine) 1 ea N/A PRN PRN PRN Reason: Notification Stop: 12/09/19 15:44 Levothyroxine Sodium (Levothyroxine Sodium 137 Mcg Tablet) [facility] Stop: 12/09/19 06:29 Last Admin: 11/13/19 05:57 Dose: 137 mcg Documented by: Lorazepam (Lorazepam 1 Mg Tab) 1 mg PO Q6H PRN PRN Reason: Anxiety/spasms Stop: 12/08/19 15:07 Last Admin: 11/09/19 22:07 Dose: 1 mg Documented by: Lorazepam (Lorazepam 0.5 Mg Tab) 0.5 mg PO DAILY PRN PRN Reason: Anxiety/sleep Stop: 12/08/19 17:16 Lorazepam (Lorazepam 0.5 Mg Tab) 0.5 mg PO Q8H PRN PRN Reason: Sedation/Anxiety Stop: 12/09/19 15:44 Losartan Potassium (Losartan Potassium 50 Mg Tab) 50 mg PO QAM MEHUL Stop: 12/10/19 09:59 Last Admin: 11/12/19 08:51 Dose: 50 mg Documented by: Magnesium Hydroxide (Magnesium Hydroxide Susp 30 Ml Udc) 30 ml PO DAILY PRN PRN Reason: Constipation Stop: 12/09/19 15:44 Metoclopramide HCl (Metoclopramide Hcl Inj 5 Mg/Ml 2 Ml Vial) 10 mg IV Q6H PRN PRN Reason: Nausea &/or Vomiting Stop: 12/08/19 15:07 Last Admin: 11/09/19 15:54 Dose: 10 mg Documented by: Metoclopramide HCl (Metoclopramide Hcl Inj 5 Mg/Ml 2 Ml Vial) 10 mg IV Q6H PRN PRN Reason: Nausea &/or Vomiting Stop: 12/09/19 15:44 Morphine Sulfate (Morphine Sulfate 2 Mg/Ml Carp) 2 mg IV Q3H PRN PRN Reason: MOD Pain 4,5,6 & Pre PT Stop: 11/23/19 15:44 Morphine Sulfate (Morphine Sulfate 4 Mg/Ml 1 Ml Carp\Vial) 4 mg IV Q3H PRN PRN Reason: SEVERE Pain 7,8,9,10 Stop: 11/23/19 15:44 Naloxone HCl (Naloxone Hcl 0.4 Mg/1 Ml Vial/Carp) 0.1 mg IV Q5M PRN; Protocol PRN Reason: Oversedation/Resp Depression Stop: 12/09/19 15:44 Ondansetron HCl (Ondansetron Inj 2 Mg/Ml 2 Ml Vial) 4 mg IV Q6H PRN PRN Reason: Nausea &/or Vomiting Stop: 12/08/19 15:07 Last Admin: 11/12/19 18:28 Dose: 4 mg Documented by: Ondansetron HCl (Ondansetron 4 Mg Od Tab) 4 mg PO Q6H PRN PRN Reason: Nausea Stop: 12/08/19 15:07 Ondansetron HCl (Ondansetron Inj 2 Mg/Ml 2 Ml Vial) 4 mg IV Q6H PRN PRN Reason: Nausea &/or Vomiting Stop: 12/09/19 15:44 Ondansetron HCl (Ondansetron 4 Mg Od Tab) 4 mg PO Q6H PRN PRN Reason: Nausea Stop: 12/09/19 15:44 Pantoprazole Sodium (Pantoprazole 40 Mg Tab) [facility] Stop: 12/09/19 08:59 Last Admin: 11/12/19 08:51 Dose: 40 mg Documented by: Pneumococcal Polyvalent Vaccine (Do Not Administer Pneumococcal Vaccine) 1 ea N/A PRN PRN PRN Reason: Notification Stop: 12/09/19 15:44 Senna/Docusate Sodium (Docusate Sodium/Senna 50/8.6mg Tab) 2 tab PO HS [facility] Stop: 12/09/19 20:59 Last Admin: 11/12/19 21:11 Dose: Not Given Documented by: Sodium Biphosphate/Sodium Phosphate (Sod Phosphate/Sod Biphosphate Enema 132 Ml Btl) 132 ml [place] ONE PRN PRN Reason: Constipation Stop: 12/09/19 15:44 Tramadol HCl (Tramadol Hcl 50 Mg Tablet) 50 - 100 mg PO Q4H PRN PRN Reason: Moderate-Severe Pain Stop: 12/08/19 15:07 Last Admin: 11/12/19 03:14 Dose: 50 mg Documented by:
[2019-11-13] MEDS: GABAPENTIN 100 MG CAP PO SCH (08:03)
[2019-11-13] MEDS: LOSARTAN POTASSIUM 50 MG TAB PO SCH (08:03)
[2019-11-13] MEDS: hydroCHLOROthiazide 25 MG TAB PO SCH (08:03)
[2019-11-13] MEDS: PANTOprazole 40 MG TAB PO SCH (08:04)
--- NOTE | 2019-11-13 08:20 | Orthopedic Progress Note ---
Date of Service November 13, 2019 Assessment & Plan (1) Right lumbar radiculopathy: Patient is doing well status post removal of hardware and extension of her fusion to L3-4 we will continue GI DVT prophylaxis and pain control measures. We will likely get her to rehab early next week. Admission and Anticipated Discharge Date Admission Date: November 08, 2019 Subjective Patient was seen bedside in room 357. She is alert and oriented. She did state that she had some confusion last night as her bed alarm had gone off and became a little disoriented. Her pain is well controlled with Tylenol. She still has discomfort in her back but her radicular complaints have subsided. She denies any other numbness, tingling, or paresthesias. Physical Exam Physical Exam: On exam patient is alert and oriented. She is sitting upright in her chair and appears to be comfortable. Her dressing is clean dry intact. Her strength and sensation are grossly intact her gait was not observed. Results & Data ([facility]) Vital Signs (Past 12 Hours) Vital Signs Temp Pulse Resp BP Pulse Ox 11/13/19 07:13 36.4 C L 76 18 149/66 H 94 11/12/19 23:04 37.0 C 104 H 16 139/73 95
[2019-11-13] MEDS: ACETAMINOPHEN 500 MG TAB PO PRN ×2 (09:29→20:12)
[2019-11-13] MEDS: FLUTICASONE PROPIONATE NA SPR 16 GM BTL SCH (20:13)
[2019-11-13] MEDS: AMITRIPTYLINE HCL 25 MG TAB PO SCH (20:14)
[2019-11-13] MEDS: GABAPENTIN 300 MG CAP PO SCH (20:14)
[2019-11-13] MEDS: DOCUSATE SODIUM/SENNA 50/8.6MG TAB PO SCH (20:14)
[2019-11-14] MEDS: LEVOTHYROXINE SODIUM 137 MCG TABLET PO SCH (05:51)
[2019-11-14 06:43] LABS: BUN Creatinine Ratio 34.4 (10-20); Calcium 8.6 mg/dl (8.5-10.1); Creatinine Clr Calc Pharmacy 69.6 ml/min; Est GFR (African American) 97.3; Est GFR (Non-African American) 83.9; Potassium 3.2 mmol/L (3.5-5.1)
[2019-11-14] MEDS: GABAPENTIN 100 MG CAP PO SCH (08:15)
[2019-11-14] MEDS: PANTOprazole 40 MG TAB PO SCH (08:15)
[2019-11-14] MEDS: LOSARTAN POTASSIUM 50 MG TAB PO SCH (08:15)
[2019-11-14] MEDS: ACETAMINOPHEN 500 MG TAB PO PRN (08:15)
[2019-11-14] MEDS: hydroCHLOROthiazide 25 MG TAB PO SCH (08:16)
[2019-11-14] MEDS ORDERED: POTASSIUM CHLORIDE 20 MEQ TABCR PO STA (08:36)
--- NOTE | 2019-11-14 08:52 | Hospitalist Progress Note ---
Date of Service November 14, 2019 Assessment & Plan (1) Status post lumbar surgery: (2) Lumbar disc herniation with radiculopathy: (3) Intractable back pain: Post op day# 5 S/P removal hardware L4-5, decompression L2-L4, fusion L3-L4 by Dr Blandon -pain management per ortho - Would Recommend not dosing benzos and narcotic meds together as pt had episode of visual hallucination. Currently pain controlled with Tylenol -PT/OT as appropriate -DVT prophylaxis per ortho -incentive spirometry -Hgb: 10.0 from 11.9 pre-op. Consistent with dilution and acute blood loss; Stable (4) Hypokalemia: 11/08/2019 K was 3.3 and was replaced 11/12, K: 3.2, likely due to loose stools and poor oral intake 11/14/2019, K: 3.2. Will replace with dose this morning and afternoon. Closely monitor Loose Stools Pt with episodes of loose stools. No BM yet today. Probable secondary to bowel regimen Negative C. difficile test (5) Hypertension: Stable Continue Losartan, HCTZ (6) Hyperlipidemia: Continue statin (7) History of TIA (transient ischemic attack): Continue statin Plavix has been on hold since 11/03/2019 Continue to hold Plavix, resume per Ortho (8) Hypothyroidism: Continue levothyroxine (9) GERD (gastroesophageal reflux disease): Continue PPI (10) DVT prophylaxis: SCD/TEDS Disposition: per primary service; Pt planned to be discharged to rehab Follow up: Dr. Webster upon discharge Thank you for this consultation. We will follow the patient with you during their hospital stay. You can reach a member of the [facility] Hospitalist Team 06/10 via pager @ [phone]. Admission and Anticipated Discharge Date Admission Date: November 08, 2019 Supervising Physician Co-Signing Physician Notes Attending addendum: The patient was seen and examined today in medical floor Denies any symptoms as of today Will be discharged home this afternoon from the primary On examination Apparent distress at rest Modalities stable Chest-clear Heart-S1-S2, regular Abdomen-benign Labs and imaging studies reviewed Agree with assessment and plan as outlined above by LASHELL Servin DR Subjective Pt seen and examined. Sitting up in bed. POD #5 lumbar surgery. Reports back pain moderately controlled with Tylenol. Does not have any further lower extremity pain. Does have chronic paresthesias secondary to neuropathy. Overall decreased appetite and has been eating small amounts. Yesterday with 4 loose BM's. Pt states thinks from all the bowel regimen she received. Has not had any BM yet today. Had negative C-diff test. Denies abdominal pain. Has been able to ambulate to bathroom and did ambulate in [place] with nurse yesterday evening. Denies fever/chills, N/V/, [place], dizziness, CP, SOB, extremity weakness, extremity edema, rashes, urinary symptoms. Review of Systems Review of Systems: All systems reviewed & are unremarkable except as noted in HPI & below Physical Exam Physical Exam: General: no distress, WDWN Head: normocephalic, atraumatic Eyes: conjunctiva non-injected, anicteric ENT: normal inspection external ears, nose, mucous membranes moist Neck: supple, trachea midline Lungs: clear, no respiratory distress, no wheezing/rhonchi/rales CV: RRR, no murmur, no pretibial edema Abd: normal BS, soft, non-tender Back: dressing in place is dry and intact Ext: no cyanosis, no calf tenderness; pedal pushes and pulls intact bilaterally; distal pulses intact, sensation to light touch intact bilaterally Neuro: A&O x 3, no focal deficits noted, normal affect Skin: warm, dry Results & Data Results & Data ([facility]) Vital Signs (Past 12 Hours) Vital Signs Temp Pulse Resp BP Pulse Ox 11/14/19 08:19 36.8 C 86 16 136/69 93 11/13/19 23:06 36.8 C 82 16 112/65 97 Laboratory Results [facility] 11/14/19 05:43 Sodium 140 Potassium 3.2 L Chloride 104 Carbon Dioxide 29 BUN 20 H Creatinine 0.57 L Glucose 113 H Calcium 8.6
[2019-11-14] MEDS ORDERED: POTASSIUM CHLORIDE 20 MEQ TABCR PO ONE ×2 (13:00→18:00)
--- NOTE | 2019-11-14 14:01 | Discharge Summary ---
Date of Service November 14, 2019 Admission HPI Per Admitting Provider This is an 84-year-old female well-known to me that presents with a marked decline in status over the past several weeks. Patient notes significant back and bilateral leg pain. An MRI was obtained lumbar spine demonstrating severe spinal stenosis L3-4 with acute disc herniation. Secondary to her inability to ambulate and being essentially wheelchair bound we placed her in the hospital for urgent decompression fusion. Principal Diagnosis Lumbar spinal stenosis with herniated was pulposis and radiculopathy Discharge Data Allergies Allergy/AdvReac Type Severity Reaction Status Date / Time aspirin Allergy Unknown HIVES Verified 11/09/19 11:15 ciprofloxacin AdvReac Intermediate NUMBNESS Verified 11/09/19 11:39 INTENSIFIED IN BOTH FEET codeine AdvReac Intermediate Nausea Verified 11/09/19 11:39 hydromorphone [From Dilaudid] AdvReac Intermediate Nausea Verified 11/09/19 11:39 oxycodone [From Percocet] AdvReac Intermediate Nausea Verified 11/09/19 11:39 fentanyl AdvReac Unknown SEE PEOPLE Verified 11/09/19 11:39 AND HEAR VOICES Ethanol Allergy Unknown SEE PEOPLE Uncoded 05/16/19 11:37 AND HEAR VOICES MONOSTAT Allergy Unknown CRAMPS Uncoded 05/16/19 11:37 PROSTIGIMIN Allergy Unknown TONGUE Uncoded 05/16/19 11:37 SWELLS Consultations 11/08/19 15:08 Consult Anesthesiology Routine Consult Internal Medicine Routine 11/09/19 15:45 Consult Case Management - Discharge Planning Routine Procedures Performed Operation Date: 11/09/19 11:25 Actual Procedures p L3-L4 Decompression and Fusion with Spinal Cord Monitoring, Application of Bone Morphogenetic Protein and Allograft (Not Applicable) - Chandana Blandon DO s Hardware Removal L4-L5, (Not Applicable) - Chandana Blandon DO Ordered Studies 11/09/19 11:25 FL fluoroscopy <1hr Routine FL lumbar spine 2-3V Routine Hospital Course (1) Lumbar disc herniation with radiculopathy: Patient was admitted to the hospital with marked line status secondary to massive disc rotation L3-L4. She underwent surgery next day tolerated so was taken to orthopedic. He. Postop day #1 we did maintain bedrest as well as postop day 2. Then we began bed to chair and ultimately physical therapy. She tolerated this well. Pain improved substantially. And subsequently she was discharged to care home facility. Discharge orders instructions from the chart for review. Total Time Total Time Spent Total Time Spent (In Minutes): 20 Discharge Plan Discharge Items Patient Disposition: Transfer [facility] Reason For Visit: LUMBAR STENOSIS Discharge Diagnosis: Lumbar spinal stenosis Activity: As commented below Non-emergency contact: Primary Care Provider Call non-emergency contact if: you have any medication questions Follow-up/Referrals: Sancho Webster MD [Primary Care Provider] - Diet: Regular Addtl Attending Provider Instructions: ACTIVITY RECOMMENDATIONS: SELF CARE INSTRUCTIONS AFTER THORACIC/LUMBAR FUSIONS 1. You may walk to your tolerance. It is good exercise for your legs and back. Expect some back and intermittent leg aches and pains. 2. You may perform "counter-top" level activities (make a sandwich, beulah with a project, etc.). 3. No bending or lifting of more than 10 pounds or back twisting of any nature (roll like a log when turning in bed). 4. You may ride in a car for 20-30 minutes at a time. No driving until after your first visit with your doctor. 5. Frequent changes of position and restricting sitting to 30 minutes at a time will help limit the amount of back spasms and stiffness you may experience. 6. You may discontinue the use of ambulatory aids (cane, crutches, etc.) once your strength and confidence allow. 7. You may adhesive bonding machine operator the shower and let water strike your incision when you arrive home at least once daily. Do not take a tub bath, sit in a hot tub or go into a swimming pool until after your first recheck in the office. SPECIAL CARE INSTRUCTIONS: VERY IMPORTANT TO READ AND REVIEW A. Your surgical incision has been closed with a cosmetic suture under the skin that will dissolve in about 6 weeks. In 14 days, you can use a pair of clean scissors and cut the suture that is left outside of the skin at the ends of your incision. 1. The small skin tapes can be removed 7 days after surgery if they have not fallen off by that point. 2. You may keep the wound open to air as much as possible to promote healing after post-op day number 5 unless told otherwise by your doctor. 3. If you think the wound looks like it is becoming infected (redness or worsening drainage) and/or you are experiencing fever, chill or worsening back pain and muscle spasms, contact the office so that we may evaluate you as soon as possible. B. Complications are uncommon, but please contact us if you have any signs or symptoms of: 1. wound infection (fever higher than 102.5 degrees F, redness, separation of wound, drainage, or increasing pain from the incision) 2. blood clots in legs (pain, swelling, redness and warmth in legs) 3. urinary tract infection (fever higher than 102.5 degrees F, burning upon urination or increased frequency of urination) 4. nerve problems (inability to walk on your toes or heels, numbness, loss of bowel or bladder control) 5. any other symptoms that concern you C. Please call the office at if you have any concerns or questions about your operation or recovery. D. No smoking! Smoking drastically decreases the chance of a solid fusion. E. Do not take any anti-inflammatory medications (Indocin, Advil, Motrin, Aspirin, Naprosyn, etc.) as these may inhibit the chance of a solid fusion. Tylenol is okay to take for pain. MANAGING PAIN AFTER SPINAL SURGERY 1. Narcotic medication is intended for short-term use and will be provided for surgical pain. Surgical pain usually lasts for a period of 4-6 weeks. Narcotic medication includes Percocet, Vicodin, Darvocet, Tylenol #3 or Lortab. 2. Longer-term pain is more appropriately treated with non-narcotic medication such as Tylenol ES. 3. Muscle spasm is not appropriately treated with narcotics. Muscle relaxers such as Soma, Flexeril or Skelaxin can be used along with Tylenol ES. 4. Remember that we all live with some "aches and pains". This is not unusual or uncommon after an injury or as we get older. a. Back pain is expected and may include muscle spasms for 4 to 6 weeks after surgery. The pain should gradually improve. If the pain worsens for no apparent reason, please contact the office. b. Intermittent leg pain may also be experienced and should not be concerned about unless it worsens for no apparent reason. If so, please contact the office. 5. We will provide appropriate medication within the normal guidelines of their prescribed use. We will also be very cautious and aware of potential abuse and extended duration of patients' medication needs. a. Pain medications are for your comfort and to assist with sleep and rest so that the tissue can heal. They are not provided in order to return to normal activity and should not be used through the day. To do so or worsening pain at night can result from ongoing tissue damage and development of tolerance to the prescribed medicine. 6. Please allow 2-3 days to process refills. Prescriptions will not be mailed but must be picked up at the office. FOLLOW UP VISIT: Keep your scheduled follow-up appointment. Any questions, please call the office at . Pending Studies at Discharge: No Stand-Alone Forms: My [facility] Skilled Items Patient informed of condition?: Yes DNR: No Discharge Level of Care: Skilled Communicable Disease: No Discharge Prognosis: Improving Lines: None Urinary Catheter: No Medications and DC Order Prescriptions: New hydrocodone-acetaminophen 5-325 mg tablet See Rx Instructions .ROUTE .COMPLEX PRN (Reason: pain) Qty: 20 RF: 0 tramadol 50 mg tablet 50 mg PO Q6H PRN (Reason: pain, moderate) Qty: 20 RF: 0 Continued losartan 50 mg tablet 50 mg PO QAM RF: 0 levothyroxine 137 mcg tablet 137 mcg PO QAM RF: 0 atorvastatin 10 mg tablet 10 mg PO Q2D@2100 RF: 0 pantoprazole 20 mg tablet,delayed release (DR/EC) 20 mg PO QAM RF: 0 amitriptyline 25 mg tablet 25 mg PO HS RF: 0 gabapentin 300 mg capsule 300 mg PO HS RF: 0 gabapentin 100 mg capsule 200 mg PO QAM RF: 0 fluticasone propionate 50 mcg/actuation spray,suspension 2 spray INTRANASAL HS RF: 0 hydrochlorothiazide 12.5 mg tablet 12.5 mg PO QAM RF: 0 polyethylene glycol 3350 [Miralax] 17 gram Powder In Packet 17 g PO DAILY PRN (Reason: constipation) Qty: 30 RF: 0 acetaminophen 500 mg tablet 1,000 mg PO Q8H PRN (Reason: fever or pain) Qty: 60 RF: 0 clopidogrel 75 mg tablet 75 mg PO QAM Qty: 0 RF: 0 lorazepam 0.5 mg tablet 0.5 mg PO DAILY PRN (Reason: Anxiety) Qty: 3 RF: 0 Discharge Orders: Discharge Order (Routine); Ordered 11/14/19 Ordered By: Chandana Blandon Admission Data Admit Date/Time: 11/08/19 13:36 Attending Provider: Chandana Blandon Admit Provider: Chandana Blandon Primary Care Provider: Sancho Webster I. Other Providers: Sreedhar Strickland ; Diana Faustin ; Bro Ryder ; Alfred Heck ; Ophelia Jarrett Other Interventions: Discharge Summary Assessment (RN) Last Done: 11/14/19 10:32
[2019-11-15] MEDS ORDERED: POTASSIUM CHLORIDE 20 MEQ TABCR PO SCH (09:00)
--- NOTE | 2019-11-18 15:19 | Coding Query ---
CODING QUERY To promote full compliance with coding requirements relating to patient care, provider participation is requested in all cases of attendance secretary uncertainty. Please assist us with the question(s) below: Coding Question(s): Progress Note 11/11/19 documents, " Monitor vital signs, blood pressure, also monitor for blood loss anemia", and above it documents, "Hgb: 9.6 from 10.6 yesterday and from 11.9 pre-op. Consistent with dilution and acute blood loss". Please clarify below, in your clinical opinion. ( ) Acute Blood Loss Anemia ( ) No Acute Blood Loss Anemia ( ) Other: Please Specify____Mild acute blood loss anemia, expected post-op, no transfusion needed Physician's Response(s): Thank you Diandra Mcdonald Principal Diagnosis: "that condition established after study, to be chiefly responsible for occasioning the admission of the patient to the hospital for care." Co-Existing Principal Diagnosis: "when two or more diagnoses equally meet the criteria for principal diagnosis as determined by the circumstances of admission, diagnostic work up, and/or therapy provided, and the Alphabetic Index, Tabular List, or another coding guideline does not provide sequencing direction, any one of the diagnoses may be sequenced first." "When the physician has documented what appears to be a current diagnosis in the body of the record, but has not included the diagnosis in the final diagnostic statement, the physician should be asked whether the diagnosis should be added." (Source Coding Clinic 2 QTR90. p3-4) KATHARINA
== END 2019-11-14 12:04 | DRG 454 ==
LOC: 3W 13:36